=== PATIENT | female | born 1940 | race Caucasian/White ===

== ENCOUNTER → 2024-05-12 | Outpatient (CLI) | payer MEDICARE, SELFPAY ==
[2024-05-12 09:24] LABS: Collection Type, Urine Clean Catch
[2024-05-12 09:40] LABS: Basophils # (Auto) 0.1 Thou/mm3 (0.0-0.2); Basophils % (Auto) 1 % (0-2.5); Eosinophils # (Auto) 0.1 Thou/mm3 (0.0-0.5); Eosinophils % (Auto) 2 % (0-10); Hematocrit 39.5 % (36.0-46.0); Hemoglobin 12.8 g/dL (12.0-16.0); Immature Granulocytes % (Auto) 0 % (0-0); Immature Granulocytes Auto 0.02 Thou/mm3 (0.00-0.00); Lymphocytes # (Auto) 0.4 Thou/mm3 (1.0-4.8); Lymphocytes % (Auto) 8 % (10-50); Mean Corpuscular HGB Conc 32.4 g/dl (31.0-37.0); Mean Corpuscular Hemoglobin 30.8 pg (25.0-35.0); Mean Corpuscular Volume 95 fL (80-100); Monocytes # (Auto) 0.5 Thou/mm3 (0.0-0.8); Monocytes % (Auto) 8 % (0-12); Neutrophils # (Auto) 4.8 Thou/mm3 (1.8-7.7); Neutrophils % (Auto) 82 % (37-80); Nucleated Red Blood Cell % 0 /100 WBC (0); Platelet Count 288 Thou/mm3 (140-440); RDW Standard Deviation 46.1 fL (36.4-46.3); Red Blood Count 4.15 Miln/mm3 (4.00-5.20); White Blood Count 5.9 Thou/mm3 (3.6-11.0)
[2024-05-12 09:52] LABS: Bacteria,Urine 1+; Bilirubin,Urine Negative (Negative); Blood,Urine Trace (Negative); Color,Urine Yellow (Lt Yel-Yel); Glucose, Urine Negative (Negative); Hyaline Casts,Urine < 1 /hpf (0-1); Ketones,Urine Negative (Negative); Leukocyte Esterase,Urine Positive (Negative); Nitrite,Urine Negative (Negative); Protein,Urine 1+ (Neg - Trace); RBC,Urine 10 /hpf (0-3); Specific Gravity,Urine 1.026 (1.001-1.035); Squamous Epithelial Cell,Urine 8 /hpf (0-5); WBC,Urine 258 /hpf (0-5)
[2024-05-12 10:01] LABS: Parathyroid Hormone Intact 274.2 pg/ml (18.5-88.0)
[2024-05-12 10:08] LABS: Albumin, Serum 4.4 gm/dL (3.4-4.8); Anion Gap 8 (7-16); BUN/Creatinine Ratio 15 Ratio (12-20); Blood Urea Nitrogen 24 mg/dL (9-23); Calcium 10.3 mg/dL (8.3-10.6); Calcium (Corrected) 10.3 mg/dL (8.5-10.1); Carbon Dioxide 29.9 mMol/L (20.0-31.0); Chloride 102 mMol/L (98-107); Creatinine (Component) 1.6 mg/dL (0.6-1.3); Glucose 118 mg/dL (74-106); Osmolality,Calculated 284 (275-295); Phosphorous 3.1 mg/dL (2.4-5.1); Potassium 3.6 mMol/L (3.4-5.1); Sodium 140 mMol/L (136-145); Thyroid Stimulating Hormone 0.99 uIU/mL (0.55-4.78); eGFR 32 See Note
[2024-05-12 10:11] LABS: Vitamin B12 317 pg/mL (211-911); Vitamin D 25 Hydroxy Total 38.6 ng/mL (7.3-40.2)
[2024-05-12 10:18] LABS: Total Iron Binding Capacity 282 mcg/dL (250-425)
[2024-05-12 10:28] LABS: Iron 86 mcg/dL (50-170); Percent Iron Saturation 30 % (20-55); Unsaturated Iron Binding 196 (225-295)
[2024-05-12 10:43] LABS: Clarity,Urine Hazy (Clear/Hazy)
== END | disposition home or self-care (01) ==
LOC: COPL 08:26
PROVIDERS: PCP Registered Nurse; Referring Provider Internal Medicine Nephrology; Visit Provider Internal Medicine Nephrology
DX: R53.82 Chronic fatigue, unspecified (principal); I89.0 Lymphedema, not elsewhere classified; E66.9 Obesity, unspecified; I12.9 Hypertensive chronic kidney disease with stage 1 through stage 4 chronic kidney disease, or unspecified chronic kidney disease; N18.9 Chronic kidney disease, unspecified
CPT/HCPCS: 36415; 80069; 81001; 82306; 82607; 83540; 83550; 83970; 84443; 85025

== ENCOUNTER 2024-06-23 08:46 | Outpatient (RCR) | payer MEDICARE, SELFPAY ==
--- NOTE | 2024-06-23 09:00 | XR_ITS ---
Examination: Nuclear medicine parathyroid scan Exam date and time: June 23, 2024 1349 hours INDICATIONS: Elevated calcium on laboratory examination this week TECHNIQUE AND FINDINGS: Intravenous administration 24 mCi technetium 99m sestamibi, pinhole and chest images obtained before hours Normal thyroid and salivary gland activity IMPRESSION: No findings diagnostic for parathyroid adenoma
== END 2024-06-28 23:59 | disposition home or self-care (01) ==
LOC: SNUC 08:46
PROVIDERS: PCP Family Medicine; Referring Provider Internal Medicine Nephrology; Visit Provider Internal Medicine Nephrology
DX: E21.0 Primary hyperparathyroidism (principal)
CPT/HCPCS: 78070; A9500

== ENCOUNTER → 2024-07-27 | Outpatient (CLI) | payer MEDICARE, SELFPAY ==
[2024-07-27 11:36] LABS: Basophils % (Auto) 1 % (0-2.5); Eosinophils # (Auto) 0.1 Thou/mm3 (0.0-0.5); Eosinophils % (Auto) 1 % (0-10); Hematocrit 41.3 % (36.0-46.0); Hemoglobin 13.1 g/dL (12.0-16.0); Immature Granulocytes % (Auto) 0 % (0-0); Immature Granulocytes Auto 0.01 Thou/mm3 (0.00-0.00); Lymphocytes # (Auto) 0.7 Thou/mm3 (1.0-4.8); Lymphocytes % (Auto) 11 % (10-50); Mean Corpuscular HGB Conc 31.7 g/dl (31.0-37.0); Mean Corpuscular Hemoglobin 30.4 pg (25.0-35.0); Mean Corpuscular Volume 96 fL (80-100); Monocytes # (Auto) 0.6 Thou/mm3 (0.0-0.8); Monocytes % (Auto) 10 % (0-12); Neutrophils # (Auto) 4.8 Thou/mm3 (1.8-7.7); Neutrophils % (Auto) 78 % (37-80); Nucleated Red Blood Cell % 0 /100 WBC (0); Platelet Count 285 Thou/mm3 (140-440); Red Blood Count 4.31 Miln/mm3 (4.00-5.20); White Blood Count 6.2 Thou/mm3 (3.6-11.0)
[2024-07-27 11:46] LABS: Collection Type, Urine Catheter
[2024-07-27 12:02] LABS: Albumin, Serum 4.3 gm/dL (3.4-4.8); Anion Gap 5 (7-16); BUN/Creatinine Ratio 12 Ratio (12-20); Blood Urea Nitrogen 20 mg/dL (9-23); Calcium 10.1 mg/dL (8.3-10.6); Calcium (Corrected) 10.1 mg/dL (8.5-10.1); Carbon Dioxide 32.9 mMol/L (20.0-31.0); Chloride 102 mMol/L (98-107); Creatinine (Component) 1.7 mg/dL (0.6-1.3); Glucose 99 mg/dL (74-106); Osmolality,Calculated 282 (275-295); Phosphorous 3.1 mg/dL (2.4-5.1); Potassium 3.4 mMol/L (3.4-5.1); Sodium 140 mMol/L (136-145); eGFR 30 See Note
[2024-07-27 12:15] LABS: Bacteria,Urine 2+; Bilirubin,Urine Negative (Negative); Blood,Urine Negative (Negative); Clarity,Urine Turbid (Clear/Hazy); Color,Urine Lt-Yellow (Lt Yel-Yel); Glucose, Urine Negative (Negative); Ketones,Urine Negative (Negative); Leukocyte Esterase,Urine Negative (Negative); Nitrite,Urine Negative (Negative); Protein,Urine Negative (Neg - Trace); RBC,Urine 2 /hpf (0-3); Specific Gravity,Urine 1.018 (1.001-1.035); Squamous Epithelial Cell,Urine 16 /hpf (0-5); Urobilinogen,Urine Negative mg/dL (0.0-1.0); WBC,Urine 7 /hpf (0-5)
== END | disposition home or self-care (01) ==
LOC: COPL 10:44
PROVIDERS: PCP Registered Nurse; Referring Provider Internal Medicine Nephrology; Visit Provider Internal Medicine Nephrology
DX: N18.30 Chronic kidney disease, stage 3 unspecified (principal)
CPT/HCPCS: 36415; 80069; 81001; 85025

== ENCOUNTER 2024-08-19 19:31 | Emergency (ER) | payer MEDICARE, SELFPAY ==
[2024-08-19 19:45] VITALS: PULSE 80
[2024-08-19 19:51] VITALS: BP 143/100; PULSE 69; RESP 16; TEMP 36.8; O2SAT 92
--- NOTE | 2024-08-19 20:03 | EDRME_ITS ---
Rapid Medical Screening Exam [facility] Arrival date/time: 08/19/24 19:31 CC: Fall HPI patient was found on the floor next to her bed after attempting to get up to go to the bathroom. Unknown downtime as the fall was not witnessed. Patient was brought home today from an outpatient clinic procedure that involved removing a nodule from her uterus. reports to EMS that the patient has been groggy on pain medication. And was put to bed. When returned after some time found the patient on the floor. Patient is awake responding all questions admits that she is on Eliquis for stroke. Chief Complaint: Fall Time Seen by Provider: 08/19/24 20:03 Vital signs: Vital Signs Temperature 98.2 F 08/19/24 19:51 Pulse Rate 69 08/19/24 19:51 Respiratory Rate 16 08/19/24 19:51 Blood Pressure 143/100 H 08/19/24 19:51 Pulse Oximetry (%) 92 L 08/19/24 19:51 Oxygen Delivery Method Room Air 08/19/24 19:51
--- NOTE | 2024-08-19 20:05 | XR_ITS ---
Examination: CT brain head without contrast. 2-D sagittal coronal reconstructions Date and time of exam:August 20, 2024, 0039 hours INDICATIONS: Ground-level fall today with injury to the head, head pain CTDI: vol (mGy):8.09 DLP: (mGycm):1316 Technique: Multiple CT axial sections of the brain have been obtained, 5 mm slice thickness. Contrast has not been administered. 2-D sagittal, coronal reconstructions have been obtained Low dose protocols were performed. One or more of the following dose reduction techniques were used; automated exposure control, adjustment of the mA and/or KV according to patient size, use of iterative reconstruction technique. Findings: No significant ventricular enlargement. Intra-axial or extra-axial hemorrhage density is not seen. No mass effect or midline shift Basal cisterns are not remarkable. Fourth ventricle is midline. Cranial vault intact. Impression: Negative for acute hemorrhage, mass effect or midline shift
--- NOTE | 2024-08-19 20:05 | XR_ITS ---
Examination: CT cervical spine without contrast 2-D sagittal reconstructions 2-D coronal reconstructions 3-D reconstructions. Exam date and time:August 20, 2024, 0039 hours INDICATIONS: Ground-level fall today with injury to the neck, neck pain CTDI:vol (mGy) 8.09 DLP: (mGycm) 1316 Technique: Multiple 2 mm axial sections of the cervical spine have been obtained. The coronal and sagittal reconstructions have been obtained. 3-D reconstructions have been obtained. Low dose protocols were performed. One or more of the following dose reduction techniques were used; automated exposure control, adjustment of the mA and/or KV according to patient size, use of iterative reconstruction technique. Findings: Axial sections demonstrate intact base of the skull. C1 exhibit satisfactory relationship to the odontoid. No acute cervical vertebral body fracture seen. Alignment posterior spinous processes satisfactory. Impression: No acute cervical fracture. 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
--- NOTE | 2024-08-19 20:05 | EKG_ITS ---
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
[2024-08-19 20:22] LABS: Basophils % (Auto) 1 % (0-2.5); Eosinophils # (Auto) 0.1 Thou/mm3 (0.0-0.5); Eosinophils % (Auto) 1 % (0-10); Hematocrit 38.8 % (36.0-46.0); Hemoglobin 12.8 g/dL (12.0-16.0); Immature Granulocytes % (Auto) 1 % (0-0); Immature Granulocytes Auto 0.03 Thou/mm3 (0.00-0.00); Lymphocytes # (Auto) 0.9 Thou/mm3 (1.0-4.8); Lymphocytes % (Auto) 14 % (10-50); Mean Corpuscular Hemoglobin 30.5 pg (25.0-35.0); Mean Corpuscular Volume 92 fL (80-100); Monocytes # (Auto) 0.5 Thou/mm3 (0.0-0.8); Monocytes % (Auto) 8 % (0-12); Neutrophils # (Auto) 4.5 Thou/mm3 (1.8-7.7); Neutrophils % (Auto) 75 % (37-80); Nucleated Red Blood Cell % 0 /100 WBC (0); Platelet Count 256 Thou/mm3 (140-440); RDW Standard Deviation 46.1 fL (36.4-46.3); White Blood Count 5.9 Thou/mm3 (3.6-11.0)
--- NOTE | 2024-08-19 20:28 | PD.EDFALL ---
ED Fall Injury RME/HPI General Chief Complaint: Fall Stated Complaint: FALL Time Seen by Provider: 08/19/24 20:03 Arrival date/time: 08/19/24 19:31 RME / HPI RME / HPI Narrative: 08/19/24 19:31 CC: Fall HPI patient was found on the floor next to her bed after attempting to get up to go to the bathroom. Unknown downtime as the fall was not witnessed. Patient was brought home today from an outpatient clinic procedure that involved removing a nodule from her uterus. reports to EMS that the patient has been groggy on pain medication. And was put to bed. When returned after some time found the patient on the floor. Patient is awake responding all questions admits that she is on Eliquis for stroke. Dr. Jones?s Main ED Evaluation: 83yo female DL from home presents to the ED for an unwitnessed fall. Patient states she fell on her bed, hitting her right side. She endorses having right elbow pain and right hip pain. She denies any headache, neck pain, chest pain, shortness of breath, abdominal pain or any other associated symptoms. Her called 911 to have her brought in for evaluation. Patient states she had an outpatient procedure done today to remove growths from my bladder . She states she took 1 [place] at home today. Related Data Home Medications ?Medication ?Instructions ?Recorded ?Confirmed bumetanide 2 mg tablet 2 mg PO BID #0 tabs 09/08/13 09/19/19 tofacitinib 5 mg tablet (Xeljanz) 1 tab PO BID ##60 09/08/13 09/19/19 folic acid 1 mg tablet 1 mg PO BID SUPPLEMENT #0 tabs 09/12/13 09/19/19 ergocalciferol (vitamin D2) 1,250 50,000 unit PO QWEEK 10/01/17 09/19/19 mcg (50,000 unit) capsule (Vitamin D2) nifedipine 30 mg tablet,extended 30 mg PO BID 10/01/17 09/19/19 release 24 hr omega 3 350 mg-dha 235 mg-epa 90 1 tab PO BID 10/01/17 09/19/19 mg-fish oil 597 mg capsule,delay rel ([place]-3) pantoprazole 40 mg tablet,delayed 40 mg PO QAM 10/01/17 09/19/19 release potassium chloride 20 mEq 20 meq PO BID 10/01/17 09/19/19 tablet,extended release simvastatin 20 mg tablet 20 mg PO QPM 10/01/17 09/19/19 ascorbic acid (vitamin C) 500 mg 500 mg PO BID 09/19/19 09/19/19 tablet (Vitamin C) aspirin 81 mg chewable tablet 81 mg PO QDAY 09/19/19 09/19/19 Held on 10/31/20. Instructions: Resume on 11/02/20. HOLD ASPRIN FOR TWO DAYS MAY RESUME ON Thursday11/02/20 calcitriol 0.5 mcg capsule 0.5 mcg PO QDAY 09/19/19 09/19/19 montelukast 10 mg tablet 10 mg PO QPM 09/19/19 09/19/19 (Singulair) vitamin B complex 1 tab PO QDAY 09/19/19 09/19/19 Previous Rx's ?Medication ?Instructions ?Recorded ciprofloxacin HCl 500 mg tablet 500 mg PO BID #14 tabs 05/05/23 (Cipro) Allergies Allergy/AdvReac Type Severity Reaction Status Date / Time influenza virus vaccine ts Allergy Severe Diarrhea Verified 07/15/23 13:17 [id number] (36 mos,up) (From Fluarix) adalimumab (From Humira) Allergy Intermediate Diarrhea Verified 07/15/23 13:17 bacitracin Allergy Verified 07/15/23 13:17 Review of Systems Review of Systems Systems Reviewed: All systems reviewed, normal except as documented Past Medical History Past Medical History NEUROLOGIC: Positive Neurological Disorders, Cerebrovascular Accident, Transient Ischemic Attacks (TIA) and Head Trauma; Negative Dementia, Alzheimer's Disease, Parkinson's Disease, Brain Tumor, Meningitis, Seizures, Epilepsy, Multiple Sclerosis, Cerebral Palsy, Amyotrophic Lateral Sclerosis (ALS/Vandana Gehrig's), Guillain-S [place] Syndrome, Spina Bifida, Paralysis, Peripheral Neuropathy, Rubalcava's Palsy, Subdural Hematoma, Migraine, Spinal Cord Injury or Traumatic Brain Injury CARDIAC: Positive Cardiac Disorders, Cardiac Arrhythmia, Atrial Fibrillation, Atherosclerotic Heart Disease, Peripheral Vascular Disease, Hypercholesterolemia, Edema, Hypertension and Varicose Veins; Negative Myocardial Infarction, Angina, Heart Murmur, Coronary Artery Disease, Aneurysm, Congestive Heart Failure, Congenital Heart Disease, Valvular Heart Disease, Rheumatic Fever, Cardiomyopathy, Pericarditis, Cellulitis, Deep Vein Thrombosis or Hypotension RESPIRATORY: Negative Chronic Obstructive Pulmonary Disease (COPD), Asthma, Bronchitis, Emphysema, Pneumonia, Pulmonary Fibrosis, Cystic Fibrosis, Tuberculosis, Pulmonary Embolism, Pulmonary Edema or Sleep Apnea GASTROINTESTINAL: Positive Gastrointestinal Disorders, Gall Bladder Disease, Hemorrhoids, Gastroesophageal Reflux Disease and Obesity; Negative Hepatitis, Cirrhosis, Pancreatitis, Celiac Disease, Gastrointestinal Bleed, Esophageal Varices, Paul's Esophagus, Colitis, Ulcerative Colitis, Diverticulitis, Diverticulosis, Ulcer, Colorectal Cancer, Irritable Bowel, Crohn's Disease, Obstructive Bowel or Hiatal Hernia GENITOURINARY: Positive Genitourinary Disorders and Renal Disease; Negative Kidney Stones, Polycystic Kidney Disease, Neurogenic Bladder, Inguinal Hernia, Dialysis or Prostate Cancer REPRODUCTIVE: Positive Previous Pregnancies; Negative Breast Cancer, Endometriosis, Genital Herpes, Gonorrhea, Pelvic Inflammatory Disease, Syphilis, Testicular Cancer or Uterine Prolapse MUSCULOSKELETAL: Positive Musculoskeletal Disorders, Arthritis, Rheumatoid Arthritis and Fractures; Negative Muscular Dystrophy, Myasthenia Gravis, Marfan's Syndrome, Bone Cancer, Osteoporosis, Degenerative Disk Disease, Gout, Scoliosis, Carpal Tunnel Syndrome, Fibromyalgia, Degenerative Joint Disease, Osteomyelitis or Poliovirus ENT: Positive Cataracts, Glaucoma and Head Trauma; Negative Blind, Retinal Detachment, Macular Degeneration, Ear Infection, Deafness or Eye Prosthesis ENDOCRINE: Negative Endocrine Disorders, Diabetes Mellitus Type 1, Diabetes Mellitus Type 2, Hypoglycemia, [place]'s Syndrome, Gaurav's Disease, Hyperthyroidism, Hypothyroidism, Parathyroid Disease, Pituitary Disease, Systemic Lupus Erythematosus, Syndrome of Inappropriate Antidiuretic Hormone (SIADH), Adrenal Disease or Graves' Disease HEMATOLOGIC: Positive Blood Disorders, Anemia and Clotting Problems; Negative Leukemia, Hemophilia, Thalassemia or Sickle Cell Disease PSYCHO/SOCIAL: Positive Psychiatric Problems, Depression and Anxiety; Negative Schizophrenia, Recreational Drug Use, Bipolar Disorder, Behavior Problems, Self-Mutilation, Attention Deficit Disorder, Attention Deficit Hyperactivity Disorder, Depression, Post Traumatic Stress Disorder or Eating Disorder OTHER HISTORY: Positive Hospitalization, Shingles, Falls, Chicken Pox, Measles, Mumps and Cancer; Negative Autoimmune Disease, Down Syndrome, Autism, Developmental Delay, Blood Transfusions, Blood Transfusion Reaction, Anesthesia Reactions, Organ Transplant, Chemotherapy, Radiation Therapy, Hyperbaric Therapy, MRSA, VRSA, Vancomycin-Resistant Enterococci, Rubella (Spanish Measles), Pertussis, Clostridium Difficile, Breast Cancer, Cervical Cancer, Colorectal Cancer, Lung Cancer, Ovarian Cancer, Prostate Cancer or Testicular Cancer Family History FAMILY HISTORY: Positive Family Psychiatric Problems, Family Cardiac Disorders, Family Cancer and Family Surgery; Negative Family Respiratory Disorders, Family Gastrointestinal Problems or Family Anesthesia Reaction Surgical History SURGICAL: Positive Eye Surgery, Nose Surgery, Tonsillectomy, Abdominal Surgery, Joint Replacement and Hysterectomy; Negative Cardiac Surgery, Open Heart Surgery, Coronary Artery Bypass Graft, Valve Replacement, Vascular Surgery, Coronary Stent, Cardiac Catheterization, Pacemaker, Angiogram, Auto Implanted Cardiovert Defib, Carotid Endarterectomy, Endocrine Surgery, Thyroidectomy, Ear Surgery, Tympanostomy Tube, Oral Surgery, Adenoidectomy, Cochlear Implant, Corneal Transplant, Throat Surgery, Tracheostomy, Gastric Bypass Surgery, Gastrostomy, Bowel Surgery, Nephrectomy, Amputation, Open Reduction Internal Fixation, Arthroscopy, Neurologic Surgery, Brain Shunt, Mastectomy, Lumpectomy, Tubal Ligation, Section or Organ Transplant Social History SMOKING STATUS: Never smoker SECOND HAND EXPOSURE: No ED Exam Narrative Physical exam: GENERAL APPEARANCE: somnolent, slurred speech, well-developed, well-nourished, no acute distress VITALS: All vitals were reviewed and the pulse ox is 95% on room air, which is normal according to my interpretation. HEENT: Normocephalic, atraumatic; pupils equal, round, reactive to light; EOMI; mucous membranes pink, moist; oropharynx clear NECK: Supple LUNGS: CTABL; no wheezes, no rales, no rhonchi HEART: Regular rate, regular rhythm; normal S1, S2; no murmurs ABDOMEN: non distended; normal BS; soft, no tenderness, no guarding, no rebound; no masses, no organomegaly, no hernia BACK: no CVA tenderness EXTREMITIES: RLE is shortened and externally rotated; tenderness on palpation of the right lateral hip; no edema NEUROLOGIC: somnolent with slurred speech; cranial nerves II-XII grossly intact; no focal sensory or motor deficits PSYCHIATRIC: appropriate mood and affect SKIN: warm, dry, normal color; no rashes Course Quality Measures none Orders Category Date Time Status Supervisory Historian Q4H START 00 Care 08/19/24 20:42 Active Continuous Pulse Oximetry NOW Care 08/19/24 20:42 Completed EKG (ED ONLY) *Do not use* NOW Care 08/19/24 20:05 Completed In and Out Catheter X1 Care 08/19/24 20:41 Completed Miscellaneous Nursing Order NOW Care 08/19/24 20:[address] cervical spine wo con Stat Exams 08/19/24 20:[address] head/brain wo con Stat Exams 08/19/24 20:[address] hip RT wo con Stat Exams 08/19/24 21:51 Taken EKG (ED Only) Stat Exams 08/19/24 20:05 Draft XR chest 1V portable Stat Exams 08/19/24 20:42 Completed XR elbow comp RT min 3V Stat Exams 08/19/24 20:41 Completed XR hip RT w pelvis 2-3V Stat Exams 08/19/24 20:41 Completed B-Type Natriuretic Peptide Stat Lab 08/19/24 20:16 Completed CBC Stat Lab 08/19/24 20:16 Completed Comprehensive Metabolic Panel Stat Lab 08/19/24 20:16 Completed Creatine Kinase Stat Lab 08/19/24 20:16 Completed Drug Screen,Urine Stat Lab 08/19/24 21:10 Completed LDH (Lactate Dehydrogenase) Stat Lab 08/19/24 20:16 Completed Magnesium Stat Lab 08/19/24 20:16 Completed Partial Thromboplastin Time Stat Lab 08/19/24 20:16 Completed Prothrombin Time with INR Stat Lab 08/19/24 20:16 Completed Troponin I Stat Lab 08/19/24 20:16 Completed Urinalysis Stat Lab 08/19/24 21:10 Completed Vital Signs Vital signs: Vital Signs Temperature 98.2 F 08/19/24 19:51 Pulse Rate 69 08/19/24 19:51 Respiratory Rate 16 08/19/24 19:51 Blood Pressure 143/100 H 08/19/24 19:51 Pulse Oximetry (%) 92 L 08/19/24 19:51 Oxygen Delivery Method Room Air 08/19/24 19:51 Fall MDM Narrative MDM Narrative:: Scribe Attestation: 08/19/24 - Estephania Currie am scribing for and in the presence of Dr. Jones. CT scans were completed at 0056. Pending to be read. No fracture seen on CT hip. Patient has developed extreme hypotension. She is somnolent for unknown reasons. May need admission. Patient data External records reviewed:: [facility] previous records (Per chart review, patient was seen here on 07/15/23 for a bladder mass.) Clinical information provided by:: patient Social determinants that could affect healthcare access:: none Patient has the following chronic illnesses:: Afib on Eliquis, hypertension, hyperlipidemia, GERD, rheumatoid arthritis How is presenting disease/condition affected by chronic disease/condition?: uneffected by Evaluation data The following diagnostics were reviewed and interpreted by me:: lab results, radiology exam(s) and EKG tracing(s) Lab and/or radiology exams considered but not ordered:: none Interpretation Summary: CBC is normal, PT and INR are normal, Creatinine is 1.5, Troponin is normal, BNP is 137, UDS is positive for fentanyl, opiates, and benzodiazepines, according to my interpretation. EKG done at 2030, aFib, rate of 77, normal axis, no ectopy, no acute ischemia, according to my interpretation. [facility] Preliminary Report Draft Patient: WILDER FOX [employer]. Record#: [id number] Birthdate: 1940 Age/Sex: 83 / F Location: [facility] Attending Dr: Ordering Physician: Date of Service: Procedure(s): Accession Number(s): cc: ~ CT scan of the head without intravenous contrast (axial sections with sagittal and coronal reformats) August 20, 2024 at 0039 hours Clinical History: GLF, on thinners. Comparison: None. Findings: There is no evidence of intracranial hemorrhage, mass effect or midline shift. There are periventricular white matter hypodensities, compatible with chronic small vessel ischemia. There is severe volume loss. The calvarium is intact. The mastoid air cells and the visualized paranasal sinuses are clear. Impression: No evidence of intracranial hemorrhage, midline shift or calvarial fracture. Periventricular chronic small vessel ischemia and volume loss. Report Electronically Signed By: Rocky Vail 08/20/2024 5:09:02 AM. -------- [facility] Report Signed Patient: WILDER FOX [employer]. Record#: [id number] Birthdate: 1940 Age/Sex: 83 / F Location: [facility] Attending Dr: Ordering Physician: Amrit Jones MD Date of Service: 08/19/24 Procedure(s): XR chest 1V portable Accession Number(s): [id number] cc: Mark Sanchez MD; Amrit Jones MD~ Examination: AP chest single view TECHNIQUE: AP portable semiupright chest single view Exam date and time: August 19, 2024 at 2049 hours Comparison May 16, 2022 INDICATIONS: Ground-level fall today injury to the chest FINDINGS: Mild to moderate enlargement left ventricle Mild to moderate pleural disease left base Ectatic thoracic aorta. No pneumothorax Prominent osteopenia. Clavicles and ribs appear intact IMPRESSION: No pneumothorax Possible small to moderate left pleural effusion Dictated By: Mark Sanchez MD Signed By: <Electronically signed by Mark Sanchez MD in OV> 08/19/242103 [facility] Report Signed Patient: WILDER FOX [employer]. Record#: [id number] Birthdate: 1940 Age/Sex: 83 / F Location: [facility] Attending Dr: Ordering Physician: Amrit Jones MD Date of Service: 08/19/24 Procedure(s): XR hip RT w pelvis 2-3V Accession Number(s): [id number] cc: Mark Sanchez MD; Amrit Jones MD~ Examination:Right hip AP, lateral, AP pelvis 3 views Technique: Hip AP lateral, AP pelvis, 3 views, right Exam date and time:August 19, 2024, 2053 hours INDICATIONS: Patient fell today, injury to the right hip, right hip pain. FINDINGS: Radiolucent line overlies the intertrochanteric region right hip but this may be a fat plane in the soft tissue Bones of the pelvis left hip intact IMPRESSION: Consider CT scan right hip without contrast follow-up to best exclude intertrochanteric fracture right hip, as clinically warranted Dictated By: Mark Sanchez MD Signed By: <Electronically signed by Mark Sanchez MD in OV> 08/19/242107 [facility] Report Signed Patient: WILDER FOX [employer]. Record#: [id number] Birthdate: 1940 Age/Sex: 83 / F Location: [facility] Attending Dr: Ordering Physician: Amrit Jones MD Date of Service: 08/19/24 Procedure(s): XR elbow comp RT min 3V Accession Number(s): [id number] cc: Mark Sanchez MD; Amrit Jones MD~ Examination: Right elbow 3 views Technique: Elbow AP, oblique, lateral 3 views Exam date and time: August 19, 2024 at 2050 hours INDICATIONS: Patient fell today with injury to the elbow, elbow pain. FINDINGS: No acute fracture No dislocation No foreign body IMPRESSION: No acute fracture. Dictated By: Mark Sanchez MD Signed By: <Electronically signed by Mark Sanchez MD in OV> 08/19/242104 [facility] Preliminary Report Draft Patient: WILDER FOX [employer]. Record#: [id number] Birthdate: 1940 Age/Sex: 83 / F Location: [facility] Attending Dr: Ordering Physician: Date of Service: Procedure(s): Accession Number(s): cc: ~ CT scan of the cervical spine without intravenous contrast (axial sections with sagittal and coronal reformats) August 20, 2024 at 0039 hours Clinical History: Ground-level fall. Comparison: None. Findings: There is no fracture or subluxation. The prevertebral soft tissues are unremarkable. Degenerative changes of the imaged portions of the spine. Chronic multilevel disc disease. Vascular calcifications. Right thyroid nodule measuring 2.9 cm. Right apical lung scarring. Impression: No evidence of fracture or subluxation. Right thyroid nodule, consider correlation with ultrasound and thyroid function tests. Report Electronically Signed By: Rocky Vail 08/20/2024 5:11:44 AM [facility] Preliminary Report Draft Patient: WILDER FOX [employer]. Record#: [id number] Birthdate: 1940 Age/Sex: 83 / F Location: [facility] Attending Dr: Ordering Physician: Date of Service: Procedure(s): Accession Number(s): cc: ~ CT scan of the right hip without intravenous contrast (axial sections with sagittal and coronal reformats) August 20, 2024 0101 hours Clinical History: Right hip pain following ground-level fall. Comparison: None. Findings: The bone density and alignment are normal. The acetabulum, femoral head and neck are within normal limits for age. The hip joint spaces are maintained. The periarticular soft tissues are within normal limits. The sacroiliac joints are unremarkable. Impression: No acute fracture or dislocation. Report Electronically Signed By: Rocky Vail 08/20/2024 5:18:50 AM [EST] Medications / Prescriptions Medications or Prescriptions considered but not ordered:: none Medication administrations:: see above Consultations Consultation(s) initiated? (list below): No Diagnosis Fall Differential Diagnosis: other (hip fx, pelvic fx, elbow fx, syncope, overmedication due to procedure, near syncope) Most likely diagnosis given after review of the tests above:: see clinical impression below Admission Indicated Admission indicated?: not indicated Admission Request Was there a request for admission?: No Disposition Plan Disposition Plan: other (specify) (Signed out to Dr. Irwin at 0600 pending re-evaluation.) Discharge Plan Prescriptions/Referrals Prescriptions/Med Rec: No Action Xeljanz 5 MG tablet 1 tab PO BID Qty: 60 bumetanide 2 MG tablet 2 mg PO BID Qty: 0 folic acid 1 MG tablet 1 mg PO BID Qty: 0 pantoprazole 40 mg Tablet,Delayed Release (Dr/Ec) 40 mg PO QAM nifedipine 30 mg Tablet Extended Release 24 Hr 30 mg PO BID simvastatin 20 mg Tablet 20 mg PO QPM ergocalciferol (vitamin D2) [Vitamin D2] 50,000 unit Capsule 50,000 unit PO QWEEK potassium chloride 20 mEq Tablet Extended Release 20 meq PO BID [place]-3 350 mg-235 mg- 90 mg-597 mg Capsule,Delayed Release(Dr/Ec) 1 tab PO BID ascorbic acid (vitamin C) [Vitamin C] 500 mg Tablet 500 mg PO BID calcitriol 0.5 mcg Capsule 0.5 mcg PO QDAY aspirin 81 mg Tablet,Chewable 81 mg PO QDAY vitamin B complex Tablet 1 tab PO QDAY montelukast [Singulair] 10 mg Tablet 10 mg PO QPM ciprofloxacin HCl [Cipro] 500 mg tablet 500 mg PO BID Qty: 14 0RF Referrals: Aleksandr Noble MD [Primary Care Provider] - In 1 week Problem List Clinical Impression: Hypertensive emergency Patient/Caregiver Discharge Instructions Print Language: Turkmen
[2024-08-19 20:36] LABS: INR 1.1 (0.9-1.3); Partial Thromboplastin Time 25.4 Seconds (22.0-36.0); Prothrombin Time 11.5 Seconds (9.0-12.2)
[2024-08-19 20:39] LABS: B-Type Natriuretic Peptide 137 pg/mL (0-100)
--- NOTE | 2024-08-19 20:41 | XR_ITS ---
Examination: Right elbow 3 views Technique: Elbow AP, oblique, lateral 3 views Exam date and time: August 19, 2024 at 2050 hours INDICATIONS: Patient fell today with injury to the elbow, elbow pain. FINDINGS: No acute fracture No dislocation No foreign body IMPRESSION: No acute fracture.
--- NOTE | 2024-08-19 20:41 | XR_ITS ---
Examination:Right hip AP, lateral, AP pelvis 3 views Technique: Hip AP lateral, AP pelvis, 3 views, right Exam date and time:August 19, 2024, 2053 hours INDICATIONS: Patient fell today, injury to the right hip, right hip pain. FINDINGS: Radiolucent line overlies the intertrochanteric region right hip but this may be a fat plane in the soft tissue Bones of the pelvis left hip intact IMPRESSION: Consider CT scan right hip without contrast follow-up to best exclude intertrochanteric fracture right hip, as clinically warranted
--- NOTE | 2024-08-19 20:42 | XR_ITS ---
Examination: AP chest single view TECHNIQUE: AP portable semiupright chest single view Exam date and time: August 19, 2024 at 2049 hours Comparison May 16, 2022 INDICATIONS: Ground-level fall today injury to the chest FINDINGS: Mild to moderate enlargement left ventricle Mild to moderate pleural disease left base Ectatic thoracic aorta. No pneumothorax Prominent osteopenia. Clavicles and ribs appear intact IMPRESSION: No pneumothorax Possible small to moderate left pleural effusion
[2024-08-19 20:53] LABS: Alanine Aminotransferase 15 U/L (10-49); Albumin/Globulin Ratio 1.4 (1.2-2.2); Alkaline Phosphatase 122 U/L (46-116); Anion Gap 9 (7-16); Aspartate Amino Transferase 23 U/L (0-34); BUN/Creatinine Ratio 13 Ratio (12-20); Bilirubin,Total 0.8 mg/dL (0.3-1.2); Blood Urea Nitrogen 20 mg/dL (9-23); Calcium 10.2 mg/dL (8.3-10.6); Calcium (Corrected) 10.2 mg/dL (8.5-10.1); Carbon Dioxide 31.3 mMol/L (20.0-31.0); Chloride 102 mMol/L (98-107); Creatine Kinase 43 U/L (34-171); Creatinine (Component) 1.5 mg/dL (0.6-1.3); Globulin 2.8 gm/dL (2.3-3.5); Glucose 107 mg/dL (74-106); Magnesium 2.2 mg/dL (1.6-2.6); Osmolality,Calculated 285 (275-295); Potassium 3.5 mMol/L (3.4-5.1); Sodium 142 mMol/L (136-145); Total Protein 6.8 gm/dL (5.7-8.2); eGFR 34 See Note
[2024-08-19 21:00] VITALS: PULSE 85
[2024-08-19 21:30] LABS: Collection Type, Urine Clean Catch
[2024-08-19 21:46] LABS: Bilirubin,Urine Negative (Negative); Blood,Urine 3+ (Negative); Clarity,Urine Clear (Clear/Hazy); Color,Urine Lt-Yellow (Lt Yel-Yel); Glucose, Urine Negative (Negative); Ketones,Urine Negative (Negative); Leukocyte Esterase,Urine Positive (Negative); Nitrite,Urine Negative (Negative); Protein,Urine 1+ (Neg - Trace); RBC,Urine 87 /hpf (0-3); Specific Gravity,Urine 1.009 (1.001-1.035); Squamous Epithelial Cell,Urine 1 /hpf (0-5); Urobilinogen,Urine Negative mg/dL (0.0-1.0); WBC,Urine 96 /hpf (0-5)
--- NOTE | 2024-08-19 21:51 | XR_ITS ---
Examination: CT pelvis without intravenous contrast. CT right hip without intravenous contrast 2-D sagittal and coronal reconstructions. Date and time of exam:August 20, 2024 0101 hours INDICATIONS: Ground-level fall today with injury to the right hip, right hip pain CTDI: vol (mGy) :16.5 DLP: (mGycm) : 572 Technique: Multiple 3 mm axial sections of the pelvis right hip have been obtained with the 64 slice high resolution scanner. 2-D sagittal and coronal reconstructions. Low dose protocols were performed. One or more of the following dose reduction techniques were used; automated exposure control, adjustment of the mA and/or KV according to patient size, use of iterative reconstruction technique. Findings: No pelvic hematoma Pericystic inflammatory change No right or left hip fracture, no hip dislocation Bones of the pelvis including anterior rami intact IMPRESSION: No acute hip or pelvic fracture
[2024-08-19 22:34] VITALS: BP 182/99; PULSE 66; RESP 14; O2SAT 92
[2024-08-19 22:34] LABS: LDH (Lactate Dehydrogenase) 203 U/L (120-246); Troponin I < 0.020 ng/mL (0.0-0.045)
[2024-08-19 22:44] LABS: Amphetamine/Methamp Scrn,U Negative (Negative); Barbiturate Screen,Urine Negative (Negative); Benzodiazepines Screen,Urine Positive (Negative); Benzoylecgonine Screen, Ur Negative (Negative); Fentanyl Screen,Urine Positive (Negative); Opiate Screen,Urine Positive (Negative); THC Screen,Urine Negative (Negative)
[2024-08-20] VITALS (10 sets, daily range): BP systolic 127–184; BP diastolic 69–112; PULSE 16–81; RESP 16–18; TEMP 36.2–36.9; O2SAT 95–99; BMI 33.7; BMI 11.0
--- NOTE | 2024-08-20 05:09 | PRELIM_ITS ---
CT scan of the head without intravenous contrast (axial sections with sagittal and coronal reformats) August 20, 2024 at 0039 hours Clinical History: GLF, on thinners. Comparison: None. Findings: There is no evidence of intracranial hemorrhage, mass effect or midline shift. There are periventricular white matter hypodensities, compatible with chronic small vessel ischemia. There is severe volume loss. The calvarium is intact. The mastoid air cells and the visualized paranasal sinuses are clear. Impression: No evidence of intracranial hemorrhage, midline shift or calvarial fracture. Periventricular chronic small vessel ischemia and volume loss. Report Electronically Signed By: Rocky Vail 08/20/2024 5:09:02 AM [EST]
--- NOTE | 2024-08-20 05:12 | PRELIM_ITS ---
CT scan of the cervical spine without intravenous contrast (axial sections with sagittal and coronal reformats) August 20, 2024 at 0039 hours Clinical History: Ground-level fall. Comparison: None. Findings: There is no fracture or subluxation. The prevertebral soft tissues are unremarkable. Degenerative changes of the imaged portions of the spine. Chronic multilevel disc disease. Vascular calcifications. Right thyroid nodule measuring 2.9 cm. Right apical lung scarring. Impression: No evidence of fracture or subluxation. Right thyroid nodule, consider correlation with ultrasound and thyroid function tests. Report Electronically Signed By: Rocky Vail 08/20/2024 5:11:44 AM [EST]
--- NOTE | 2024-08-20 05:19 | PRELIM_ITS ---
CT scan of the right hip without intravenous contrast (axial sections with sagittal and coronal reformats) August 20, 2024 0101 hours Clinical History: Right hip pain following ground-level fall. Comparison: None. Findings: The bone density and alignment are normal. The acetabulum, femoral head and neck are within normal limits for age. The hip joint spaces are maintained. The periarticular soft tissues are within normal limits. The sacroiliac joints are unremarkable. Impression: No acute fracture or dislocation. Report Electronically Signed By: Rocky Vail 08/20/2024 5:18:50 AM [EST]
--- NOTE | 2024-08-20 06:07 | EDNOTE_ITS ---
Emergency Room Addendum Addendum Narrative: 0600: Care assumed from Dr. Jones, the previous shift emergency physician. Past medical, surgical, social and family history reviewed. Vitals and home medications reviewed. I will assume the care of the patient at this time. Please refer to the emergency department record for history and examination from initial visit.? 0700: Physical exam by me shows patient is awake now, she says she is ?very sensitive to medicines and feels that they might have given her too much for anesthesia yesterday. She now knows today Thursday and she does recall that Thursday was her procedure. She states she occasionally uses a walker to ambulate. 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 She otherwise complains of no pain except when she moves her neck. She?s notices a little bit of stiffness, but no pain at rest. 0730: We are waiting for director social welfare consult and patient will also need PT. 1630: Established PT at home and plan for outpatient care. 1700: Patient remains clinically stable throughout the emergency department visit. Re-assessment at the time of disposition demonstrates that the patient is in no acute distress. We reviewed all the results, analysis, and treatment plans. Patient is amenable to discharge. Strict return precautions were outlined. Patient was discharged in stable condition. Diagnosis: - Fall from ground level
[2024-08-20] MEDS: hydrALAZINE INJ 20 MG/ML VIAL 10 MG IV (06:19)
[2024-08-20] MEDS: cefTRIAXone/D5w 1gm IV premix 1 GM/50 ML BAG IV (06:21)
--- NOTE | 2024-08-20 07:39 | PC.NURSE ---
Report received from pm nurse, patient to er with c/o fall last pm, per kaleb Curtis states patient had a procedure yesterday and was given medication to sedate her, when they came home, she was in bed and approx. 1200am he found patient on the floor next to her bed, unknown loc, patient noted to have skin tear to right elbow, patient currently denies pain, skin is cool dry and slightly palle, patient has periwick in place. Patient alert and oriented x 3, call light within reach, patient has no other needs at this time.
--- NOTE | 2024-08-20 08:17 | PC.NURSE ---
Patient provided with breakfast tray.
--- NOTE | 2024-08-20 09:37 | PC.NURSE ---
Attempted to walk patient with steady, however, after taking 2 steps forward, patient c/o feeling dizzy, patient denies. Dr. Irwin made aware.
[2024-08-20] MEDS: SODIUM CHLORIDE 0.9% 500 ML 500 ML 999 ML IV (09:43)
--- NOTE | 2024-08-20 12:28 | PC.NURSE ---
Physical Therapists at bedside to evaluate patient for fall risk and ADL's.
--- NOTE | 2024-08-20 15:40 | PC.NURSE ---
Spoke with Mita with s/s will evaluate patient for safe discharge. Patient lying in gurney sleeping, no distress noted, call light within reach
--- NOTE | 2024-08-20 16:19 | PC.NURSE ---
Spoke with S/S Mita states she spoke with family and grandson Ever who states they will be taking care of patient at home and decide as a family if patient needs placement at home, Dr. barajas is aware and ok to discharge, patient made aware of plan of care. Awaiting d/c paperwork.
--- NOTE | 2024-08-20 16:41 | PC.NURSE ---
Tameka at bedside, stating he needs help at home with patient, called [employer], Mita will come to bedside to speak with patient, Dr. Irwin made aware.
--- NOTE | 2024-08-20 17:33 | PC.CC ---
Addendum entered by Aaron Rider RN 08/20/24 17:39: Patient accepted by [facility], start of care 08/21/24. Original Note: Home health referrals sent through [email or web address]. Awaiting responses at this time.
== END 2024-08-20 17:47 | disposition home or self-care (01) ==
PROVIDERS: Registered Nurse General Practice; Emergency Provider Emergency Medicine; PCP Family Medicine
DX: I16.1 Hypertensive emergency (principal)
CPT/HCPCS: 51701; 36415; 70450; 71045; 72125; 73080; 73502; 73700; 80053; 80307; 81001; 82550; 83615; 83735; 83880; 84484; 85025; 85610; 85730; 93005; 96361; 96365; 99284; J0360; J0696; J7040

== ENCOUNTER → 2024-09-17 | Outpatient (CLI) | payer MEDICARE, SELFPAY ==
--- NOTE | 2024-09-17 09:00 | XR_ITS ---
Examination: MRI lumbar spine without contrast Date and time of exam: September 17, 2024 0911 hours INDICATION: Low back pain radiating down the legs beginning one year ago Technique: Multiple MRI axial and sagittal sections lumbar spine. Sagittal T2-weighted images, TR 3500, TE 118 T1 weighted transverse sections, TR 688 T8.5, T2-weighted sagittal sections T1 weighted sagittal sections TR 621, TE 30 T2 axial sections, TR 4, 190, TE 84. Findings: Grade 1 anterolisthesis L5 on S1 Advanced disc narrowing L5-S1 No acute lumbar fracture Heterogeneous marrow signal involving lumbar vertebral bodies Diffuse lumbar disc desiccation L5-S1 grade 1 anterolisthesis, 2 mm central lumbar disc bulge, mild bilateral L5 ganglionic compression secondary to the anterolisthesis L4-L5 5 mm central lumbar disc bulge extending to the foraminal regions with mild bilateral L4 ganglionic compression L3-L4 4 mm central lumbar disc bulge L2-L3 no focal disc protrusion L1-L2 no disc protrusion IMPRESSION: L5-S1 grade 1 anterolisthesis 2 mm central lumbar disc bulge mild bilateral L5 ganglionic compression L4-L5 5 mm on the lumbar disc bulge with mild bilateral L4 ganglionic impression L3-L4 4 mm central lumbar disc bulge
== END | disposition home or self-care (01) ==
PROVIDERS: PCP Family Medicine; Referring Provider Physical Medicine & Rehabilitation Pain Medicine; Visit Provider Physical Medicine & Rehabilitation Pain Medicine
DX: M51.360 Other intervertebral disc degeneration, lumbar region with discogenic back pain only (principal); M51.370 Other intervertebral disc degeneration, lumbosacral region with discogenic back pain only; G95.20 Unspecified cord compression
CPT/HCPCS: 72148

== ENCOUNTER → 2024-09-27 | Outpatient (CLI) | payer MEDICARE, SELFPAY ==
[2024-09-27 16:40] LABS: Basophils # (Auto) 0.1 Thou/mm3 (0.0-0.2); Basophils % (Auto) 1 % (0-2.5); Eosinophils # (Auto) 0.1 Thou/mm3 (0.0-0.5); Eosinophils % (Auto) 2 % (0-10); Hematocrit 37.7 % (36.0-46.0); Hemoglobin 12.7 g/dL (12.0-16.0); Immature Granulocytes % (Auto) 0 % (0-0); Immature Granulocytes Auto 0.01 Thou/mm3 (0.00-0.00); Lymphocytes # (Auto) 0.6 Thou/mm3 (1.0-4.8); Lymphocytes % (Auto) 14 % (10-50); Mean Corpuscular HGB Conc 33.7 g/dl (31.0-37.0); Mean Corpuscular Volume 92 fL (80-100); Monocytes # (Auto) 0.6 Thou/mm3 (0.0-0.8); Monocytes % (Auto) 12 % (0-12); Neutrophils # (Auto) 3.3 Thou/mm3 (1.8-7.7); Neutrophils % (Auto) 71 % (37-80); Nucleated Red Blood Cell % 0 /100 WBC (0); Platelet Count 277 Thou/mm3 (140-440); RDW Standard Deviation 46.7 fL (36.4-46.3); White Blood Count 4.6 Thou/mm3 (3.6-11.0)
[2024-09-27 17:11] LABS: Alanine Aminotransferase 9 U/L (10-49); Albumin, Serum 4.1 gm/dL (3.4-4.8); Albumin/Globulin Ratio 1.6 (1.2-2.2); Alkaline Phosphatase 115 U/L (46-116); Anion Gap 10 (7-16); Aspartate Amino Transferase 17 U/L (0-34); BUN/Creatinine Ratio 10 Ratio (12-20); Bilirubin,Total 0.7 mg/dL (0.3-1.2); Blood Urea Nitrogen 19 mg/dL (9-23); C-Reactive Protein < 0.5 mg/dL (0.0-0.9); Calcium 9.2 mg/dL (8.3-10.6); Calcium (Corrected) 9.2 mg/dL (8.5-10.1); Carbon Dioxide 32.2 mMol/L (20.0-31.0); Chloride 101 mMol/L (98-107); Creatinine (Component) 1.9 mg/dL (0.6-1.3); Globulin 2.6 gm/dL (2.3-3.5); Glucose 95 mg/dL (74-106); Osmolality,Calculated 287 (275-295); Sodium 143 mMol/L (136-145); Total Protein 6.7 gm/dL (5.7-8.2); eGFR 26 See Note
[2024-09-27 17:19] LABS: Sed Rate (ESR) 4 mm/hr (0-30)
[2024-09-29 12:33] LABS: Cocci Serology, IgM Negative (Negative)
[2024-09-30 12:34] LABS: Cocci Serology, IgG Negative (Negative)
== END | disposition home or self-care (01) ==
LOC: COPL 15:21
PROVIDERS: PCP Family Medicine; Referring Provider Nurse Practitioner; Visit Provider Nurse Practitioner
DX: M05.79 Rheumatoid arthritis with rheumatoid factor of multiple sites without organ or systems involvement (principal)
CPT/HCPCS: 36415; 80053; 85025; 85652; 86140; 86331; 86635

== ENCOUNTER → 2024-09-29 | Outpatient (CLI) | payer MEDICARE, SELFPAY ==
[2024-09-29 09:02] LABS: Quantiferon-TB* See Sep Rpt
== END | disposition home or self-care (01) ==
LOC: COPL 08:35
PROVIDERS: PCP Family Medicine; Referring Provider Internal Medicine Rheumatology; Visit Provider Internal Medicine Rheumatology
DX: M05.79 Rheumatoid arthritis with rheumatoid factor of multiple sites without organ or systems involvement (principal)
CPT/HCPCS: 86480

== ENCOUNTER → 2024-11-04 | Outpatient (CLI) | payer MEDICARE, SELFPAY ==
[2024-11-04 16:50] LABS: Basophils # (Auto) 0.1 Thou/mm3 (0.0-0.2); Basophils % (Auto) 1 % (0-2.5); Eosinophils % (Auto) 1 % (0-10); Hematocrit 37.7 % (36.0-46.0); Hemoglobin 12.6 g/dL (12.0-16.0); Immature Granulocytes % (Auto) 1 % (0-0); Immature Granulocytes Auto 0.04 Thou/mm3 (0.00-0.00); Lymphocytes # (Auto) 0.5 Thou/mm3 (1.0-4.8); Lymphocytes % (Auto) 9 % (10-50); Mean Corpuscular HGB Conc 33.4 g/dl (31.0-37.0); Mean Corpuscular Hemoglobin 31.4 pg (25.0-35.0); Mean Corpuscular Volume 94 fL (80-100); Monocytes # (Auto) 0.6 Thou/mm3 (0.0-0.8); Monocytes % (Auto) 10 % (0-12); Neutrophils # (Auto) 4.5 Thou/mm3 (1.8-7.7); Neutrophils % (Auto) 79 % (37-80); Nucleated Red Blood Cell % 0 /100 WBC (0); Platelet Count 259 Thou/mm3 (140-440); RDW Standard Deviation 46.5 fL (36.4-46.3); Red Blood Count 4.01 Miln/mm3 (4.00-5.20); White Blood Count 5.7 Thou/mm3 (3.6-11.0)
[2024-11-04 16:56] LABS: Parathyroid Hormone Intact 420.3 pg/ml (18.5-88.0)
[2024-11-04 16:58] LABS: Anion Gap 8 (7-16); BUN/Creatinine Ratio 11 Ratio (12-20); Blood Urea Nitrogen 17 mg/dL (9-23); Calcium 9.3 mg/dL (8.3-10.6); Calcium (Corrected) 9.3 mg/dL (8.5-10.1); Carbon Dioxide 30.6 mMol/L (20.0-31.0); Chloride 103 mMol/L (98-107); Creatinine (Component) 1.6 mg/dL (0.6-1.3); Glucose 121 mg/dL (74-106); Osmolality,Calculated 285 (275-295); Phosphorous 2.6 mg/dL (2.4-5.1); Potassium 3.2 mMol/L (3.4-5.1); Sodium 142 mMol/L (136-145); eGFR 32 See Note
[2024-11-04 17:00] LABS: Vitamin D 25 Hydroxy Total 23.2 ng/mL (7.3-40.2)
== END | disposition home or self-care (01) ==
PROVIDERS: PCP Family Medicine; Referring Provider Internal Medicine Nephrology; Visit Provider Internal Medicine Nephrology
DX: E55.9 Vitamin D deficiency, unspecified (principal); I10 Essential (primary) hypertension
CPT/HCPCS: 36415; 80069; 81001; 82306; 83970; 85025

== ENCOUNTER 2024-11-30 18:42 | Inpatient (IN) | payer MEDICARE, SELFPAY ==
--- NOTE | 2024-11-30 18:59 | EKG_ITS ---
[facility] Test Date: 2024-11-30 Pat Name: WILDER FOX Department: Room: - Gender: Female Superintendent Transmission: : 1940 Requested By: ED Temporary Provider Order Number: [id number] Reading MD: ED Temporary Provider Measurements Intervals [place] Rate: 79 P: CT: QRS: 9 QRSD: 88 T: 259 QT: 338 QTc: 388 Interpretive Statements ATRIAL FIBRILLATION SEPTAL MYOCARDIAL INFARCTION , OF INDETERMINATE AGE [40+ ms Q WAVE IN V1/V2] MODERATE T-WAVE ABNORMALITY, CONSIDER INFERIOR ISCHEMIA [-0.1+ mV T-WAVE IN II/aVF] Compared to ECG 08/19/2024 20:30:39 Myocardial infarct finding now present T-wave abnormality now present Possible ischemia now present /store/S0/[id number]/ecg/[id number].pdf
[2024-11-30 19:33] VITALS: BP 173/92; PULSE 94; RESP 19; TEMP 36.6; O2SAT 95
--- NOTE | 2024-11-30 19:36 | PD.EDCHEST ---
ED Chest Pain RME/HPI General Chief Complaint: Chest Pain Stated Complaint: CHEST PAIN WITH ELEVATED TROPONIN , PRIMARY SENT Time Seen by Provider: 11/30/24 19:16 Arrival date/time: 11/30/24 18:42 RME / HPI RME / HPI narrative: This section includes all my notes and documentations, including HPI, PE, and ED course. Brandin Goetz MD HPI: 83yo female here with chest pain for the last few hours. About a week ago, she had possible falling and/or syncopal episode. Details unknown. Patient can't remember. No witnesses. Normally, she is fully alert and oriented and fully independent. Younger brother present today. He reports for about a week, she has been more confused and can't ambulate. And definitely not independent currently. No other complaints. ROS: All negative except as documented in HPI. Physical Exam: General: Alert and oriented X 1. No acute distress when remaining still. High BP noted. Eyes: Conjunctivae and lids clear. EOMI. PERRL. ENT: No nasal congestion. Neck: Supple. No carotid bruit. No JVD. Heart: Irregularly irregular (79 bpm). Lungs: No respiratory distress. Good air movement. No rhonchi, wheezing, rales. Chest: No tenderness. Abdomen: Soft and nontender. Normal bowel sounds. No distension. No rebound or guarding. Back: No CVA tenderness. Legs: No clubbing, cyanosis, edema. Skin: Warm and dry. Neuro: Alert and oriented X 1. Cranial Nerves II-XII grossly intact. No peripheral motor deficits. I reviewed all diagnostic test results. My interpretation of the EKG is atrial fibrillation (79 bpm). My review of the CT head report is NAD. My review of the CT cervical spine report is NAD. My review of the CT chest abdomen pelvis report is NAD. Blood and urine tests remarkable for Potassium 3.2, Creatinine 1.7, Troponin 0.100. COVID/Influenza negative. At this point, diagnoses include syncope, atrial fibrillation, hypertensive urgency, and elevated troponin. Treatment here included Potassium, Metoprolol, and Aspirin. Patient remained stable. I discussed the case with our hospitalist. About the presentation and exam and diagnostics and treatments here. And need of further care in the hospital. Will accept the patient. Brandin Goetz MD Related Data Home Medications ?Medication ?Instructions ?Recorded ?Confirmed bumetanide 2 mg tablet 2 mg PO BID #0 tabs 09/08/13 12/01/24 tofacitinib 5 mg tablet (Xeljanz) 1 tab PO BID ##60 09/08/13 12/01/24 ergocalciferol (vitamin D2) 1,250 50,000 unit PO QWEEK 10/01/17 12/01/24 mcg (50,000 unit) capsule (Vitamin D2) nifedipine 30 mg tablet,extended 30 mg PO BID 10/01/17 12/01/24 release 24 hr pantoprazole 40 mg tablet,delayed 40 mg PO QAM 10/01/17 12/01/24 release potassium chloride 20 mEq 20 meq PO BID 10/01/17 12/01/24 tablet,extended release aspirin 81 mg chewable tablet 81 mg PO QDAY 09/19/19 12/01/24 Held on 10/31/20. Instructions: Resume on 11/02/20. HOLD ASPRIN FOR TWO DAYS MAY RESUME ON Thursday11/02/20 montelukast 10 mg tablet 10 mg PO QPM 09/19/19 12/01/24 (Singulair) Allergies Allergy/AdvReac Type Severity Reaction Status Date / Time influenza virus vaccine ts Allergy Severe Diarrhea Verified 11/30/24 18:47 [id number] (36 mos,up) (From Fluarix) adalimumab (From Humira) Allergy Intermediate Diarrhea Verified 11/30/24 18:47 bacitracin Allergy Verified 11/30/24 18:47 Review of Systems Review of Systems Systems Reviewed: All systems reviewed, normal except as documented Past Medical History Past Medical History NEUROLOGIC: Positive Neurological Disorders, Cerebrovascular Accident, Transient Ischemic Attacks (TIA) and Head Trauma; Negative Dementia, Alzheimer's Disease, Parkinson's Disease, Brain Tumor, Meningitis, Seizures, Epilepsy, Multiple Sclerosis, Cerebral Palsy, Amyotrophic Lateral Sclerosis (ALS/Vandana Gehrig's), Guillain-Lincoln Syndrome, Spina Bifida, Paralysis, Peripheral Neuropathy, Rubalcava's Palsy, Subdural Hematoma, Migraine, Spinal Cord Injury or Traumatic Brain Injury CARDIAC: Positive Cardiac Disorders, Cardiac Arrhythmia, Atrial Fibrillation, Atherosclerotic Heart Disease, Peripheral Vascular Disease, Hypercholesterolemia, Edema, Hypertension and Varicose Veins; Negative Myocardial Infarction, Angina, Heart Murmur, Coronary Artery Disease, Aneurysm, Congestive Heart Failure, Congenital Heart Disease, Valvular Heart Disease, Rheumatic Fever, Cardiomyopathy, Pericarditis, Cellulitis, Deep Vein Thrombosis or Hypotension RESPIRATORY: Negative Chronic Obstructive Pulmonary Disease (COPD), Asthma, Bronchitis, Emphysema, Pneumonia, Pulmonary Fibrosis, Cystic Fibrosis, Tuberculosis, Pulmonary Embolism, Pulmonary Edema or Sleep Apnea GASTROINTESTINAL: Positive Gastrointestinal Disorders, Gall Bladder Disease, Hemorrhoids, Gastroesophageal Reflux Disease and Obesity; Negative Hepatitis, Cirrhosis, Pancreatitis, Celiac Disease, Gastrointestinal Bleed, Esophageal Varices, Paul's Esophagus, Colitis, Ulcerative Colitis, Diverticulitis, Diverticulosis, Ulcer, Colorectal Cancer, Irritable Bowel, Crohn's Disease, Obstructive Bowel or Hiatal Hernia GENITOURINARY: Positive Genitourinary Disorders and Renal Disease; Negative Kidney Stones, Polycystic Kidney Disease, Neurogenic Bladder, Inguinal Hernia, Dialysis or Prostate Cancer REPRODUCTIVE: Positive Previous Pregnancies; Negative Breast Cancer, Endometriosis, Genital Herpes, Gonorrhea, Pelvic Inflammatory Disease, Syphilis, Testicular Cancer or Uterine Prolapse MUSCULOSKELETAL: Positive Musculoskeletal Disorders, Arthritis, Rheumatoid Arthritis and Fractures; Negative Muscular Dystrophy, Myasthenia Gravis, Marfan's Syndrome, Bone Cancer, Osteoporosis, Degenerative Disk Disease, Gout, Scoliosis, Carpal Tunnel Syndrome, Fibromyalgia, Degenerative Joint Disease, Osteomyelitis or Poliovirus ENT: Positive Cataracts, Glaucoma and Head Trauma; Negative Blind, Retinal Detachment, Macular Degeneration, Ear Infection, Deafness or Eye Prosthesis ENDOCRINE: Negative Endocrine Disorders, Diabetes Mellitus Type 1, Diabetes Mellitus Type 2, Hypoglycemia, Bradley's Syndrome, Maceo's Disease, Hyperthyroidism, Hypothyroidism, Parathyroid Disease, Pituitary Disease, Systemic Lupus Erythematosus, Syndrome of Inappropriate Antidiuretic Hormone (SIADH), Adrenal Disease or Graves' Disease HEMATOLOGIC: Positive Blood Disorders, Anemia and Clotting Problems; Negative Leukemia, Hemophilia, Thalassemia or Sickle Cell Disease PSYCHO/SOCIAL: Positive Psychiatric Problems, Depression and Anxiety; Negative Schizophrenia, Recreational Drug Use, Bipolar Disorder, Behavior Problems, Self-Mutilation, Attention Deficit Disorder, Attention Deficit Hyperactivity Disorder, Depression, Post Traumatic Stress Disorder or Eating Disorder OTHER HISTORY: Positive Hospitalization, Shingles, Falls, Chicken Pox, Measles, Mumps and Cancer; Negative Autoimmune Disease, Down Syndrome, Autism, Developmental Delay, Blood Transfusions, Blood Transfusion Reaction, Anesthesia Reactions, Organ Transplant, Chemotherapy, Radiation Therapy, Hyperbaric Therapy, MRSA, VRSA, Vancomycin-Resistant Enterococci, Rubella (Setswana Measles), Pertussis, Clostridium Difficile, Breast Cancer, Cervical Cancer, Colorectal Cancer, Lung Cancer, Ovarian Cancer, Prostate Cancer or Testicular Cancer Family History FAMILY HISTORY: Positive Family Psychiatric Problems, Family Cardiac Disorders, Family Cancer and Family Surgery; Negative Family Respiratory Disorders, Family Gastrointestinal Problems or Family Anesthesia Reaction Surgical History SURGICAL: Positive Eye Surgery, Nose Surgery, Tonsillectomy, Abdominal Surgery, Joint Replacement and Hysterectomy; Negative Cardiac Surgery, Open Heart Surgery, Coronary Artery Bypass Graft, Valve Replacement, Vascular Surgery, Coronary Stent, Cardiac Catheterization, Pacemaker, Angiogram, Auto Implanted Cardiovert Defib, Carotid Endarterectomy, Endocrine Surgery, Thyroidectomy, Ear Surgery, Tympanostomy Tube, Oral Surgery, Adenoidectomy, Cochlear Implant, Corneal Transplant, Throat Surgery, Tracheostomy, Gastric Bypass Surgery, Gastrostomy, Bowel Surgery, Nephrectomy, Amputation, Open Reduction Internal Fixation, Arthroscopy, Neurologic Surgery, Brain Shunt, Mastectomy, Lumpectomy, Tubal Ligation, Section or Organ Transplant Social History SMOKING STATUS: Never smoker SECOND HAND EXPOSURE: No ED Exam Narrative Physical exam: As noted in HPI. Course Quality Measures none Orders Category Date Time Status Bedside COVID-19 Antigen Test NOW Care 11/30/24 19:43 Active Bedside Influenza A&B Antigen Test NOW Care 11/30/24 19:43 Completed EKG (ED ONLY) *Do not use* NOW Care 11/30/24 18:59 Completed Saline [Insert IV] NOW Care 11/30/24 19:43 Completed Straight [In and Out Catheter] X1 Care 11/30/24 19:[address] cervical spine wo con Stat Exams 11/30/24 19:[address] chest abdomen pelvis wo Stat Exams 11/30/24 19:[address] head/brain wo con Stat Exams 11/30/24 19:44 Completed EKG (ED Only) Stat Exams 11/30/24 18:59 Draft BNP [B-Type Natriuretic Peptide] Stat Lab 11/30/24 20:20 Completed Beta Hydroxybutyrate Stat Lab 11/30/24 20:20 Completed Bilirubin,Direct Stat Lab 11/30/24 20:20 Completed Blood Culture (Lab) Stat Lab 11/30/24 20:25 Received CBC Stat Lab 11/30/24 20:20 Completed CK [Creatine Kinase] Stat Lab 11/30/24 20:20 Completed CMP [Comprehensive Metabolic Panel] Stat Lab 11/30/24 20:20 Completed CRP [C-Reactive Protein] Stat Lab 11/30/24 20:20 Completed ESR [Sed Rate (ESR)] Stat Lab 11/30/24 20:20 Completed Free T4 (Free Thyroxine) Stat Lab 11/30/24 20:20 Completed Lactate (Lactic Acid) Stat Lab 11/30/24 20:20 Completed Magnesium Stat Lab 11/30/24 20:20 Completed PT [Prothrombin Time with INR] Stat Lab 11/30/24 20:20 Completed PTT [Partial Thromboplastin Time] Stat Lab 11/30/24 20:20 Completed Procalcitonin Stat Lab 11/30/24 20:20 Completed TSH [Thyroid Stimulating Hormone] Stat Lab 11/30/24 20:20 Completed Troponin I Stat Lab 11/30/24 20:20 Completed UA, C/S IF [Urinalysis, C/S if Indicated] Stat Lab 11/30/24 21:14 Completed Aspirin Chew Med 11/30/24 19:43 Discontinued 324 mg PO X1 ONE KCL 10% Liq UDC 15 ML Med 11/30/24 21:45 Discontinued 40 meq PO X1 ONE Metoprolol Tartrate [Lopressor] Med 11/30/24 19:43 Discontinued 12.5 mg PO X1 ONE Vital Signs Vital signs: Vital Signs Temperature 97.9 F 11/30/24 19:33 Pulse Rate 94 11/30/24 19:33 Respiratory Rate 19 11/30/24 19:33 Blood Pressure 173/92 H 11/30/24 19:33 Pulse Oximetry (%) 95 11/30/24 19:33 Oxygen Delivery Method Room Air 11/30/24 19:33 Chest Pain MDM Narrative MDM Narrative:: 83yo female here with chest pain for the last few hours. About a week ago, she had possible falling and/or syncopal episode. Details unknown. Patient can't remember. No witnesses. Normally, she is fully alert and oriented and fully independent. Younger brother present today. He reports for about a week, she has been more confused and can't ambulate. And definitely not independent currently. No other complaints. Patient data External records reviewed:: [facility] previous records (Per chart review, patient was seen here on 08/19/24 for a fall.) Clinical information provided by:: patient and family (brother) Social determinants that could affect healthcare access:: none Patient has the following chronic illnesses:: aFib on Eliquis, HTN, HLD, GERD, rheumatoid arthritis How is presenting disease/condition affected by chronic disease/condition?: uneffected by Evaluation data The following diagnostics were reviewed and interpreted by me:: lab results, radiology exam(s) and EKG tracing(s) (My interpretation of the EKG is: Atrial fibrillation (79 bpm) with nonspecific ST-T changes. Brandin Goetz MD) Lab and/or radiology exams considered but not ordered:: nonw Interpretation Summary: I reviewed all diagnostic test results. My interpretation of the EKG is atrial fibrillation (79 bpm). My review of the CT head report is NAD. My review of the CT cervical spine report is NAD. My review of the CT chest abdomen pelvis report is NAD. Blood and urine tests remarkable for Potassium 3.2, Creatinine 1.7, Troponin 0.100. COVID/Influenza negative. Medications / Prescriptions Medications or Prescriptions considered but not ordered:: none Medication administrations:: Medication Administration History Acetaminophen (Acetaminophen 325 Mg Tablet) 650 mg PO Q6H PRN PRN Reason: PAIN SCALE 1-3 (mild Stop: 12/30/24 22:44 Apixaban (Apixaban 2.5 Mg Tablet) 2.5 mg PO BID [facility] Stop: 12/31/24 08:59 Aspirin (Aspirin Ec 81 Mg Tabec) 81 mg PO QDAY [facility] Stop: 12/31/24 08:59 Lactated Ringer's (Lactated Ringers) 500 mls @ 50 mls/hr IV .Q10H ONE Stop: 12/01/24 08:51 Last Admin: 11/30/24 23:11 Dose: 50 mls/hr Documented By: EE Nifedipine (Nifedipine Xl 30 Mg Tabcr) 30 mg PO BID [facility] Stop: 12/31/24 08:59 Non-Formulary Medication (Xeljanz) 1 tab PO BID [facility] Stop: 12/31/24 08:59 Ondansetron HCl (Ondansetron Inj 2 Mg/Ml Inj 2 Ml) 4 mg IVP Q6H PRN; Protocol PRN Reason: NAUSEA OR VOMITING Stop: 12/30/24 22:44 Sennosides (Senna Tablet) 1 tab PO QDAY [facility]; Protocol Stop: 12/31/24 08:59 Discontinued Medications Aspirin (Aspirin 81 Mg Chew) 324 mg PO X1 ONE Stop: 11/30/24 19:44 Last Admin: 11/30/24 21:03 Dose: 324 mg Documented By: EE Magnesium Sulfate (Magnesium Sulfate Ivpb) 4 gm in 50 mls @ 12.5 mls/hr IV X1 ONE Stop: 12/01/24 02:51 Last Admin: 11/30/24 23:11 Dose: 12.5 mls/hr Documented By: EE Metoprolol Tartrate (Metoprolol Tartrate 25 Mg Tablet) 12.5 mg PO X1 ONE Stop: 11/30/24 19:44 Last Admin: 11/30/24 21:03 Dose: 12.5 mg Documented By: EE Nifedipine (Nifedipine Xl 30 Mg Tabcr) 30 mg PO BID [facility] Stop: 12/30/24 22:59 Potassium Chloride (Potassium Chloride 10% 20 Meq/15 Ml Udc) 40 meq PO X1 ONE Stop: 11/30/24 21:46 Last Admin: 11/30/24 22:47 Dose: 40 meq Documented By: EE Potassium, Metoprolol, Aspirin Consultations Consultation(s) initiated? (list below): Yes Consultation #1 (Physician, Specialty, Details): I discussed the case with our hospitalist. About the presentation and exam and diagnostics and treatments here. And need of further care in the hospital. Will accept the patient. Diagnosis Chest Pain Differential Diagnosis: pneumothorax, stable angina, unstable angina pectoris, atypical chest pain, st elevation myocardial infarction, costochondritis, chest pain and biliary colic Most likely diagnosis given after review of the tests above:: At this point, diagnoses include syncope, atrial fibrillation, hypertensive urgency, and elevated troponin. Admission Indicated Admission indicated?: indicated Explain why admission is indicated or not indicated:: Syncope, atrial fibrillation, hypertensive urgency, and elevated troponin. Admission Request Was there a request for admission?: Yes Admission Attestation Admission request attestation: Discussed case with Hospitalist service regarding admission. Discussed patients ED course, exam findings, labs, and radiology results. The Hospitalist [agrees] to accept the patient for admission. Disposition Plan Disposition Plan: Admit Discharge Plan Plan Patient Disposition: Admit Acute Care w/in Hospital Problem List Clinical Impression: Syncope, Atrial fibrillation, Hypertensive urgency, Elevated troponin
--- NOTE | 2024-11-30 19:44 | XR_ITS ---
Examination: CT brain head without contrast. 2-D sagittal coronal reconstructions Date and time of exam:November 30, 2024, 2033 hours INDICATIONS: Patient fell today with injury head, head pain CTDI: vol (mGy):48.3 DLP: (mGycm):961 Technique: Multiple CT axial sections of the brain have been obtained, 5 mm slice thickness. Contrast has not been administered. 2-D sagittal, coronal reconstructions have been obtained Low dose protocols were performed. One or more of the following dose reduction techniques were used; automated exposure control, adjustment of the mA and/or KV according to patient size, use of iterative reconstruction technique. Findings: No significant ventricular enlargement. Intra-axial or extra-axial hemorrhage density is not seen. No mass effect or midline shift Basal cisterns are not remarkable. Fourth ventricle is midline. Cranial vault intact. Impression: Negative for acute hemorrhage, mass effect or midline shift
--- NOTE | 2024-11-30 19:44 | XR_ITS ---
Examination: CT chest, without intravenous contrast. CT abdomen, without intravenous contrast. CT pelvis, without intravenous contrast. 2-D sagittal and coronal reconstructions. 3-D reconstructions. Date and time of exam:November 30, 2024, 2038 hours INDICATIONS: Patient fell today with individuals narrowing, chest pain abdomen pain CTDI vol (mgy) 13 DLP (MGycm)934 Technique: Multiple CT images, 3.0 mm slice thickness, obtained chest, abdomen, pelvis, with the high-resolution 64 slice scanner.. Sagittal and coronal 2-D reconstructions are obtained. 3-D reconstructions Low dose protocols were performed. One or more of the following dose reduction techniques were used; automated exposure control, adjustment of the mA and/or KV according to patient size, use of iterative reconstruction technique. Findings: Right thyroid lobe extends substernal Thoracic aorta and pulmonary arteries appear intact No hemopericardium No pneumothorax pulmonary contusion or hemothorax Manubrium sternum thoracic and lumbar vertebral bodies appear intact Ribs appear intact Mild enlargement in cardiac contour No liver or splenic or renal laceration Gallstones Fatty replacement of the pancreas Abdominal aorta is intact No free blood in the abdomen Negative for pneumoperitoneum Urinary bladder intact Absent uterus Bones of the pelvis and hips appear intact IMPRESSION: Thoracic aorta pulmonary arteries intact No hemopericardium, pneumothorax pulmonary contusion or hemothorax No abdominal parenchymal laceration Abdominal aorta intact No free blood in the abdomen or pelvis. Osseous structures appear intact
--- NOTE | 2024-11-30 19:44 | XR_ITS ---
Examination: CT cervical spine without contrast 2-D sagittal reconstructions 2-D coronal reconstructions 3-D reconstructions. Exam date and time:December 01, 20247 hours INDICATIONS: Patient fell today with into the neck, neck pain CTDI:vol (mGy) 8.16 DLP: (mGycm) 161 Technique: Multiple 2 mm axial sections of the cervical spine have been obtained. The coronal and sagittal reconstructions have been obtained. 3-D reconstructions have been obtained. Low dose protocols were performed. One or more of the following dose reduction techniques were used; automated exposure control, adjustment of the mA and/or KV according to patient size, use of iterative reconstruction technique. Findings: Axial sections demonstrate intact base of the skull. C1 exhibit satisfactory relationship to the odontoid. No acute cervical vertebral body fracture seen. Alignment posterior spinous processes satisfactory. Impression: No acute cervical fracture.
[2024-11-30 20:34] LABS: Lactate (Lactic Acid) 1.4 mMol/L (0.4-2.0)
[2024-11-30 20:41] LABS: Basophils # (Auto) 0.1 Thou/mm3 (0.0-0.2); Basophils % (Auto) 1 % (0-2.5); Eosinophils # (Auto) 0.2 Thou/mm3 (0.0-0.5); Eosinophils % (Auto) 2 % (0-10); Hematocrit 41.9 % (36.0-46.0); Hemoglobin 13.6 g/dL (12.0-16.0); Immature Granulocytes Auto 0.02 Thou/mm3 (0.00-0.00); Lymphocytes # (Auto) 0.5 Thou/mm3 (1.0-4.8); Lymphocytes % (Auto) 7 % (10-50); Mean Corpuscular HGB Conc 32.5 g/dl (31.0-37.0); Mean Corpuscular Hemoglobin 31.4 pg (25.0-35.0); Mean Corpuscular Volume 97 fL (80-100); Monocytes # (Auto) 0.7 Thou/mm3 (0.0-0.8); Monocytes % (Auto) 10 % (0-12); Neutrophils # (Auto) 5.4 Thou/mm3 (1.8-7.7); Neutrophils % (Auto) 80 % (37-80); Nucleated Red Blood Cell # 0.00 Thou/mm3 (0.00-0.00); Nucleated Red Blood Cell % 0 /100 WBC (0); Platelet Count 198 Thou/mm3 (140-440); RDW Standard Deviation 47.1 fL (36.4-46.3); Red Blood Count 4.33 Miln/mm3 (4.00-5.20); White Blood Count 6.7 Thou/mm3 (3.6-11.0)
[2024-11-30 20:50] LABS: Beta Hydroxybutyrate 0.1 mmol/L (<0.6)
[2024-11-30 20:54] LABS: INR 1.1 (0.9-1.3); Partial Thromboplastin Time 23.2 Seconds (22.0-36.0); Prothrombin Time 11.7 Seconds (9.0-12.2)
[2024-11-30 20:55] VITALS: BMI 29.1
[2024-11-30 20:56] LABS: Sed Rate (ESR) 17 mm/hr (0-30)
[2024-11-30 21:01] VITALS: BP 161/119; PULSE 92; RESP 23; TEMP 36.7; O2SAT 95
[2024-11-30 21:03] VITALS: BP 161/119; PULSE 92
[2024-11-30] MEDS: METOPROLOL TARTRATE 25 MG TABLET 12.5 MG PO (21:03)
[2024-11-30] MEDS: ASPIRIN 81 MG CHEW 324 MG PO (21:03)
[2024-11-30 21:15] LABS: B-Type Natriuretic Peptide 48 pg/mL (0-100)
[2024-11-30 21:22] LABS: Alanine Aminotransferase 12 U/L (10-49); Albumin, Serum 3.7 gm/dL (3.4-4.8); Albumin/Globulin Ratio 1.4 (1.2-2.2); Alkaline Phosphatase 105 U/L (46-116); Anion Gap 10 (7-16); Aspartate Amino Transferase 20 U/L (0-34); BUN/Creatinine Ratio 12 Ratio (12-20); Bilirubin,Direct 0.5 mg/dL (0.0-0.3); Bilirubin,Total 1.2 mg/dL (0.3-1.2); Blood Urea Nitrogen 21 mg/dL (9-23); C-Reactive Protein 0.9 mg/dL (0.0-0.9); Calcium 10.0 mg/dL (8.3-10.6); Calcium (Corrected) 10.2 mg/dL (8.5-10.1); Carbon Dioxide 29.3 mMol/L (20.0-31.0); Chloride 102 mMol/L (98-107); Creatine Kinase 39 U/L (34-171); Creatinine (Component) 1.7 mg/dL (0.6-1.3); Estimated Creatinine Clearance 30.8 mL/min (>60); Free T4 (Free Thyroxine) 1.57 ng/dL (0.89-1.76); Globulin 2.6 gm/dL (2.3-3.5); Glucose 127 mg/dL (74-106); Magnesium 1.7 mg/dL (1.6-2.6); Osmolality,Calculated 286 (275-295); Potassium 3.2 mMol/L (3.4-5.1); Procalcitonin 0.11 ng/ml (0.0-0.49); Sodium 141 mMol/L (136-145); Thyroid Stimulating Hormone 1.86 uIU/mL (0.55-4.78); Total Protein 6.3 gm/dL (5.7-8.2); eGFR 30 See Note
[2024-11-30 21:22] LABS: Collection Type, Urine Clean Catch; WBC,Urine 0 /hpf (0-5)
[2024-11-30 21:24] LABS: Troponin I 0.100 ng/mL (0.0-0.045)
[2024-11-30 21:42] LABS: Bacteria,Urine Rare; Bilirubin,Urine Negative (Negative); Blood,Urine 1+ (Negative); Clarity,Urine Clear (Clear/Hazy); Color,Urine Yellow (Lt Yel-Yel); Culture Indicated,Urine Not Indicated; Glucose, Urine Negative (Negative); Ketones,Urine Negative (Negative); Leukocyte Esterase,Urine Negative (Negative); Nitrite,Urine Negative (Negative); PH,Urine 6.0 (5.0-7.0); Protein,Urine Trace (Neg - Trace); RBC,Urine 39 /hpf (0-3); Specific Gravity,Urine 1.025 (1.001-1.035); Squamous Epithelial Cell,Urine 2 /hpf (0-5); Urobilinogen,Urine 2.0 mg/dL (0.0-1.0)
[2024-11-30] MEDS: POTASSIUM CHLORIDE 10% 20 MEQ/15 ML UDC 40 MEQ PO (22:47)
--- NOTE | 2024-11-30 22:55 | PD.RESHP ---
Documentation for date of: 11/30/24 HPI History of Present Illness Chief complaint: Chest pain History of present illness: 83-year-old female with past medical history of hypertension, hyperlipidemia, rheumatoid arthritis on Xeljanz, A-fib on Eliquis presenting to the ED on 12/01 with episode of chest pain. Patient is accompanied by her brother who is bedside and corroborated her story. Patient apparently lives with grandson and has been experiencing episodes of syncope and has not been able to get an appointment with her PCP. Patient has significant cardiac history and is on Eliquis for A-fib, follows Dr. Dutta outpatient but has not done so in many months. Patient's brother states that last Thursday 11/23 patient had a fall and has been largely wheelchair-bound ever since but prior to that episode the patient was able to ambulate using a walker. Patient states that the chest pain was substernal and started earlier today with some radiation to her left shoulder accompanied with some shortness of breath but denies having any palpitations or dizziness. Patient has orthopnea and sleeps on a recliner and states that she gets lower extremity edema from time to time. Medical history: As stated above Surgical history: Right knee replacement, facial reconstruction surgery after a fall Allergies: Adalimumab causes diarrhea, bacitracin, influenza virus? Medications: Pending med rec Family history: Noncontributory Social history: Patient lives with grandson, used to be able to ambulate using walker but now is largely wheelchair-bound, denies ever smoking cigarettes, alcohol use or drug use ROS: All 12 systems assessed and the patient denies unless otherwise stated in HPI In the ED, patient presented hypertensive urgency blood pressure 173/92, heart rate 94, respiratory rate 19, temperature 97.9 and saturating 95 on room air. Pertinent lab findings included WBC of 6.7, hemoglobin 13.6, potassium 3.2, creatinine 1.7, BUN 21 and a GFR of 30, lactic acid of 1.4, magnesium 1.7, troponin initially 0.102 has downtrended to 0.100, BNP of 48, TSH 1.86. Urinalysis does not show any signs of infection. Cervical spine CT shows no acute cervical fractures, CT chest abdomen pelvis shows osseous structures that appear intact otherwise no concerning findings, head CT is negative for any acute findings and EKG shows atrial fibrillation but there appears to be P waves. Patient will be admitted for hypertensive urgency with mild troponin elevation likely secondary to NSTEMI type II along with workup for cardiac syncope. Exam Vital Signs Temp Pulse Resp BP Pulse Ox O2 Del Method 98.0 F 92 23 H 161/119 H 95 Room Air 11/30/24 21:01 11/30/24 21:03 11/30/24 21:01 11/30/24 21:03 11/30/24 21:01 11/30/24 21:01 Narrative Exam Physical Exam: GENERAL: Awake, answering questions appropriately, appears stated age HEENT: NC/AT. Moist mucosa. PERRLA/EOMI. CARDIO: Heart RRR, no obvious murmurs, no JVD. PULM: No coughing or visible SOB. Lungs CTA B/L. GI: Abdomen soft, NT/ND, +BS. SKIN/MSK/EXT: Bilateral upper extremities have ecchymoses in bilateral lower extremities have dilated varicose veins. No rashes/edema/amputations noted. +Pedal pulses present B/L. NEURO: Oriented x3, Moves extremities x4, no focal neurologic deficits noted. Results: Labs 12/01/24 03:10 12/01/24 02:11 Labs: Short CBC 11/30/24 Range/Units 20:20 WBC 6.7 (3.6-11.0) Thou/mm3 Hgb 13.6 (12.0-16.0) g/dL Hct 41.9 (36.0-46.0) % Plt Count 198 D (140-440) Thou/mm3 BMP 11/30/24 20:20 Sodium 141 Potassium 3.2 L Chloride 102 Carbon Dioxide 29.3 BUN 21 Creatinine 1.7 H Glucose 127 H Calcium 10.0 Cardiac Enzymes 11/30/24 Range/Units 20:20 Total Creatine Kinase 39 (34-171) U/L Troponin I 0.100 H* (0.0-0.045) ng/mL Liver Function 11/30/24 Range/Units 20:20 Total Bilirubin 1.2 (0.3-1.2) mg/dL Direct Bilirubin 0.5 H (0.0-0.3) mg/dL AST 20 (0-34) U/L ALT 12 (10-49) U/L Alkaline Phosphatase 105 (46-116) U/L Albumin 3.7 D (3.4-4.8) gm/dL Urine 11/30/24 Range/Units 21:14 Urine Color Yellow (Lt Yel-Yel) Urine Clarity Clear (Clear/Hazy) Urine pH 6.0 (5.0-7.0) Ur Specific [place] 1.025 (1.001-1.035) Urine Protein Trace (Neg - Trace) Urine Glucose (UA) Negative (Negative) Quality Measures Quality Measures none Advance care planning discussed with:: patient and sibling Medications Home Medications and Allergies Home Medications ?Medication ?Instructions ?Recorded ?Confirmed ?Type bumetanide 2 mg tablet 2 mg PO BID #0 tabs 09/08/13 12/01/24 History tofacitinib 5 mg tablet (Xeljanz) 1 tab PO BID ##60 09/08/13 12/01/24 History ergocalciferol (vitamin D2) 1,250 50,000 unit PO QWEEK 10/01/17 12/01/24 History mcg (50,000 unit) capsule (Vitamin D2) nifedipine 30 mg tablet,extended 30 mg PO BID 10/01/17 12/01/24 History release 24 hr pantoprazole 40 mg tablet,delayed 40 mg PO QAM 10/01/17 12/01/24 History release potassium chloride 20 mEq 20 meq PO BID 10/01/17 12/01/24 History tablet,extended release aspirin 81 mg chewable tablet 81 mg PO QDAY 09/19/19 12/01/24 History Held on 10/31/20. Instructions: Resume on 11/02/20. HOLD ASPRIN FOR TWO DAYS MAY RESUME ON Thursday11/02/20 montelukast 10 mg tablet 10 mg PO QPM 09/19/19 12/01/24 History (Singulair) Allergies Allergy/AdvReac Type Severity Reaction Status Date / Time influenza virus vaccine ts Allergy Severe Diarrhea Verified 11/30/24 18:47 [id number] (36 mos,up) (From Fluarix) adalimumab (From Humira) Allergy Intermediate Diarrhea Verified 11/30/24 18:47 bacitracin Allergy Verified 11/30/24 18:47 Visit Medications Acetaminophen (Acetaminophen 325 Mg Tablet) 650 mg PO Q6H PRN PRN Reason: PAIN SCALE 1-3 (mild Stop: 12/30/24 22:44 Apixaban (Apixaban 2.5 Mg Tablet) 2.5 mg PO BID [facility] Stop: 12/31/24 08:59 Aspirin (Aspirin Ec 81 Mg Tabec) 81 mg PO QDAY [facility] Stop: 12/31/24 08:59 Lactated Ringer's (Lactated Ringers) 500 mls @ 50 mls/hr IV .Q10H ONE Stop: 12/01/24 08:51 Magnesium Sulfate (Magnesium Sulfate Ivpb) 4 gm in 50 mls @ 12.5 mls/hr IV X1 ONE Stop: 12/01/24 02:51 Non-Formulary Medication (Xeljanz) 1 tab PO BID [facility] Stop: 12/31/24 08:59 Ondansetron HCl (Ondansetron Inj 2 Mg/Ml Inj 2 Ml) 4 mg IVP Q6H PRN; Protocol PRN Reason: NAUSEA OR VOMITING Stop: 12/30/24 22:44 Sennosides (Senna Tablet) 1 tab PO QDAY [facility]; Protocol Stop: 12/31/24 08:59 Discontinued Medications Aspirin (Aspirin 81 Mg Chew) 324 mg PO X1 ONE Stop: 11/30/24 19:44 Last Admin: 11/30/24 21:03 Dose: 324 mg Metoprolol Tartrate (Metoprolol Tartrate 25 Mg Tablet) 12.5 mg PO X1 ONE Stop: 11/30/24 19:44 Last Admin: 11/30/24 21:03 Dose: 12.5 mg Nifedipine (Nifedipine Xl 30 Mg Tabcr) 30 mg PO BID [facility] Stop: 12/30/24 22:59 Potassium Chloride (Potassium Chloride 10% 20 Meq/15 Ml Udc) 40 meq PO X1 ONE Stop: 11/30/24 21:46 Last Admin: 11/30/24 22:47 Dose: 40 meq Assessment & Plan Plan 83-year-old female with past medical history of hypertension, hyperlipidemia, rheumatoid arthritis on Xeljanz, A-fib on Eliquis presenting to the ED on 12/01 with episode of chest pain will be admitted for hypertensive urgency with mild troponin elevation likely secondary to NSTEMI type II along with workup for cardiac syncope. #Syncope #A-fib? Likely secondary to cardiac etiology versus orthostatic versus vagal, less likely to be seizure/stroke or TIA Patient notes as in HPI that she had complete loss of consciousness but denies having any palpitations CHADVASC 4?points Stroke risk was 4.8% per year On assessment, patient does not have any neurologic deficits and is answering questions appropriately and able to move all 4 extremities although she does have some pain on upper extremities Cervical spine CT shows no acute cervical fractures CT chest abdomen pelvis shows osseous structures that appear intact otherwise no concerning findings head CT is negative for any acute findings EKG shows atrial fibrillation but there appears to be P waves. Patient has extensive cardiac history and follows Dr. Dutta outpatient Plan: Telemetry monitoring Cardiology consulted, appreciate recommendations Follow-up on orthostatic vitals Continue patient's Eliquis 2.5 mg p.o. twice daily PT consult and patient is aware that she might need SNF #Hypertensive urgency #Hypertension #Elevated troponin Likely NSTEMI type II versus NSTEMI type I As noted above, patient presented with elevated blood pressure not necessarily meeting threshold of greater than 180/120 blood pressure Plan: Continue patient's aspirin 81 mg daily Cardiology consulted as above Troponin downtrending, continue to trend x 1 Restarted patient's home antihypertensives #CKD stage IIIb Patient has known history of CKD, baseline creatinine around 1.5?1.7 Plan: Avoid nephrotoxic agents Renally dose medications Monitor with morning labs Replete electrolytes as needed #Rheumatoid arthritis Patient on Xeljanz Plan: Restarted home medications, patient will bring medications from home not on formulary Health Maintenance: Lines: PIV Diet: Cardiac Bowel: Senna GI prophylaxis: Not needed DVT prophylaxis: On Eliquis 2.5 mg twice daily Dispo: Cardiac consultation, PT for SNF Code: Full Patient seen and assessed with attending Dr. Rolando Morrow DO PGY-2 Internal Medicine - GME Attending Provider Attestation/Addendum I reviewed labs, imaging, EKG, home medications and prior available records. Face to face evaluation was performed by me. I have personally examined the patient and discussed assessment and plan with the IM team. I reviewed the resident note and agree with the plan with exceptions as below. Ground-level fall Frequent falls Syncope Elevated troponin Hypokalemia CT head is negative for acute changes Differential diagnosis of the syncope includes orthostatic versus vasovagal versus cardiac. Less likely CVA Ordered echocardiogram IV fluids Consult cardiology PT evaluation Trend troponin
[2024-11-30 23:09] VITALS: BP 132/74; PULSE 86; RESP 16; TEMP 36.9; O2SAT 93
[2024-11-30] MEDS: RINGERS LACTATED 500 ML 500 ML 50 ML IV (23:11)
[2024-11-30] MEDS: Magnesium Sulfate 4 GM Ivpb 4 GM/50 ML BAG IV (23:11)
--- NOTE | 2024-11-30 23:47 | ECHO_ITS ---
Transthoracic Echo Report Ht (in): 70 Wt (lb): 203 Exam Location: Echo Lab Status: Inpatient Thermostat Maker: Nabila Ovalles Indications: Procedure Performed: BP: 132 / 72 HR: 65 Technical Quality: Technically difficult study MEASUREMENTS (Male / Female) Normal Values 2D ECHO LV Diastolic Diameter PLAX 2.6 cm 4.2 - 5.9 / 3.9 - 5.3 cm LV Systolic Diameter PLAX 2.3 cm IVS Diastolic Thickness 1.3 cm 0.6 - 1.0 / 0.6 - 0.9 cm LVPW Diastolic Thickness 1.1 cm 0.6 - 1.0 / 0.6 - 0.9 cm LV Relative Wall Thickness 0.9 LA Volume Index 44.3 cm?/m? 16 - 28 cm?/m? M-MODE Aortic Root Diameter MM 2.8 cm LA Systolic Diameter MM 4.2 cm LA Ao Ratio MM 1.5 AV Cusp Separation MM 2.0 cm DOPPLER AV Peak Velocity 96.1 cm/s AV Peak Gradient 3.7 mmHg AV Mean Gradient 2.0 mmHg AV Velocity Time Integral 21.6 cm LVOT Peak Velocity 65.0 cm/s LVOT Peak Gradient 1.7 mmHg LVOT Velocity Time Integral 13.3 cm MR Peak Velocity 257.0 cm/s MR Peak Gradient 26.4 mmHg TR Peak Velocity 213.3 cm/s TR Peak Gradient 18.2 mmHg PV Peak Velocity 85.5 cm/s PV Peak Gradient 2.9 mmHg FINDINGS Left Ventricle Normal left ventricular size. Mild LVH. Normal left ventricular diastolic filling pattern for age. The ejection fraction is visually estimated at 50-55%. Right Ventricle The right ventricular systolic function is moderately decreased. The right ventricular size is moderately increased. Left Atrium Moderately increased left atrial volume 44.3 mL/m?. Right Atrium The right atrium is normal by two-dimensional imaging, color flow and Doppler imaging with no structural abnormalities, no thrombus formation present. Atrial Septum The interatrial septum appears normal with no evidence of a shunt. Aorta The aorta is normal by two-dimensional, color flow and Doppler interrogation. Mitral Valve The mitral valve is normal by two-dimensional, color flow and Doppler interrogation. Trace mitral regurgitation. Aortic Valve The aortic valve is trileaflet and normal by two-dimensional, color flow and Doppler interrogation. There is no significant aortic valve regurgitation. Tricuspid Valve The tricuspid valve is normal by two-dimensional, color flow and Doppler interrogation. There is mild tricuspid valve regurgitation. Pulmonic Valve The pulmonic valve is not well visualized. There is no significant pulmonic valve regurgitation. Vessels Inferior vena cava not well visualized. Pericardium The pericardium is normal by two-dimensional imaging. There is no significant pericardial effusion. CONCLUSIONS Indication: R/O cardiac syncope Normal left ventricular size and function. Approximate ejection fraction is 50-55%. The RV systolic function is moderately decreased. The RV size is moderately increased. Moderately increased LA size Trace mitral and trace tricuspid regurgitation . Tawana Husain (Electronically Signed) Final Date: 02 December 2024 16:01
[2024-12-01] VITALS (13 sets, daily range): BP systolic 106–166; BP diastolic 62–99; PULSE 40–88; RESP 15–19; TEMP 35.6–36.3; O2SAT 92–95; BMI 28.8; BMI 11.0
[2024-12-01 03:30] LABS: Basophils # (Auto) 0.1 Thou/mm3 (0.0-0.2); Basophils % (Auto) 1 % (0-2.5); Eosinophils # (Auto) 0.2 Thou/mm3 (0.0-0.5); Eosinophils % (Auto) 4 % (0-10); Hematocrit 39.8 % (36.0-46.0); Hemoglobin 13.1 g/dL (12.0-16.0); Immature Granulocytes Auto 0.01 Thou/mm3 (0.00-0.00); Lymphocytes # (Auto) 0.6 Thou/mm3 (1.0-4.8); Lymphocytes % (Auto) 10 % (10-50); Mean Corpuscular HGB Conc 32.9 g/dl (31.0-37.0); Mean Corpuscular Hemoglobin 32.0 pg (25.0-35.0); Mean Corpuscular Volume 97 fL (80-100); Monocytes # (Auto) 0.6 Thou/mm3 (0.0-0.8); Monocytes % (Auto) 10 % (0-12); Neutrophils # (Auto) 4.3 Thou/mm3 (1.8-7.7); Neutrophils % (Auto) 76 % (37-80); Nucleated Red Blood Cell # 0.00 Thou/mm3 (0.00-0.00); Nucleated Red Blood Cell % 0 /100 WBC (0); Platelet Count 192 Thou/mm3 (140-440); RDW Standard Deviation 47.3 fL (36.4-46.3); Red Blood Count 4.09 Miln/mm3 (4.00-5.20); White Blood Count 5.7 Thou/mm3 (3.6-11.0)
[2024-12-01 04:06] LABS: Alanine Aminotransferase 9 U/L (10-49); Albumin, Serum 3.0 gm/dL (3.4-4.8); Albumin/Globulin Ratio 1.4 (1.2-2.2); Alkaline Phosphatase 89 U/L (46-116); Anion Gap 13 (7-16); Aspartate Amino Transferase 15 U/L (0-34); BUN/Creatinine Ratio 9 Ratio (12-20); Bilirubin,Total 0.9 mg/dL (0.3-1.2); Blood Urea Nitrogen 12 mg/dL (9-23); Calcium 9.2 mg/dL (8.3-10.6); Calcium (Corrected) 10.0 mg/dL (8.5-10.1); Carbon Dioxide 25.5 mMol/L (20.0-31.0); Cardiac Risk Estimate 3.6 RATIO (3.7-5.6); Chloride 96 mMol/L (98-107); Cholesterol 144 mg/dL (132-200); Creatinine (Component) 1.4 mg/dL (0.6-1.3); Estimated Creatinine Clearance 37.3 mL/min (>60); Globulin 2.1 gm/dL (2.3-3.5); Glucose 134 mg/dL (74-106); HDL Cholesterol 40 mg/dL (40-60); LDL Cholesterol,Calculated 86 mg/dL (0-130); Osmolality,Calculated 269 (275-295); Potassium 3.6 mMol/L (3.4-5.1); Sodium 134 mMol/L (136-145); Total Protein 5.1 gm/dL (5.7-8.2); Triglycerides 90 mg/dL (30-150); eGFR 37 See Note
[2024-12-01 04:38] LABS: Troponin I 0.107 ng/mL (0.0-0.045)
--- NOTE | 2024-12-01 07:59 | PD.IMCONS ---
HPI Data of Consult Requesting Physician: Cayetano Marshall MD Primary Care Provider: Aleksandr Noble MD Consult Narrative History of present illness: 83-year-old female with past medical history of hypertension, hyperlipidemia, rheumatoid arthritis on Xeljanz, A-fib on Eliquis Patient seen in the emergency room with an episode of chest pain EKG shows underlying atrial fibrillation with heart rate [address], [address]-T wave changes noted Troponins all 3 of them 0.1 Patient has chronic renal dysfunction initial creatinine was 1.7 Patient recently had a fall and currently on essentially wheelchair-bound Complains of sharp orthopnea and shortness of breath on exertion cc:: cc: Cayetano Marshall MD Meds Home Medications and Allergies Home Medications ?Medication ?Instructions ?Recorded ?Confirmed ?Type bumetanide 2 mg tablet 2 mg PO BID #0 tabs 09/08/13 12/01/24 History tofacitinib 5 mg tablet (Xeljanz) 1 tab PO BID ##60 09/08/13 12/01/24 History ergocalciferol (vitamin D2) 1,250 50,000 unit PO QWEEK 10/01/17 12/01/24 History mcg (50,000 unit) capsule (Vitamin D2) nifedipine 30 mg tablet,extended 30 mg PO BID 10/01/17 12/01/24 History release 24 hr pantoprazole 40 mg tablet,delayed 40 mg PO QAM 10/01/17 12/01/24 History release potassium chloride 20 mEq 20 meq PO BID 10/01/17 12/01/24 History tablet,extended release aspirin 81 mg chewable tablet 81 mg PO QDAY 09/19/19 12/01/24 History Held on 10/31/20. Instructions: Resume on 11/02/20. HOLD ASPRIN FOR TWO DAYS MAY RESUME ON Thursday11/02/20 montelukast 10 mg tablet 10 mg PO QPM 09/19/19 12/01/24 History (Singulair) Allergies Allergy/AdvReac Type Severity Reaction Status Date / Time influenza virus vaccine ts Allergy Severe Diarrhea Verified 11/30/24 18:47 [id number] (36 mos,up) (From Fluarix) adalimumab (From Humira) Allergy Intermediate Diarrhea Verified 11/30/24 18:47 bacitracin Allergy Verified 11/30/24 18:47 Exam Vital Signs Temp Pulse Resp BP Pulse Ox O2 Del Method 96.5 F L 69 18 149/90 H 93 L Room Air 12/01/24 05:46 12/01/24 05:46 12/01/24 05:46 12/01/24 05:46 12/01/24 05:46 12/01/24 05:46 Routine HEENT Exam Head: Present normocephalic and atraumatic Eye: Present EOMI and PERRL ENT: Present mucous membranes moist Routine Neck Exam Neck: Present supple and trachea midline Routine Respiratory Exam Respiratory: Present chest non-tender, lungs clear, normal breath sounds and no resp distress Routine Cardiovascular Exam Cardiovascular: Present RRR Routine Abdominal Exam Abdominal: Present soft and normoactive bowel sounds Routine Extremities Exam Extremities: Present full ROM Routine Skin Exam Skin: Present intact, dry and warm Routine Neurological Exam Neurological: Present alert, oriented X3 and CN II-XII intact Routine Psychiatric Exam Psychiatric: Present normal affect and normal thought process Results Labs 12/01/24 03:10 12/01/24 02:11 Labs: Short CBC 11/30/24 12/01/24 Range/Units 20:20 03:10 WBC 6.7 5.7 (3.6-11.0) Thou/mm3 Hgb 13.6 13.1 (12.0-16.0) g/dL Hct 41.9 39.8 (36.0-46.0) % Plt Count 198 D 192 (140-440) Thou/mm3 BMP 11/30/24 12/01/24 20:20 02:11 Sodium 141 134 L Potassium 3.2 L 3.6 Chloride 102 96 L Carbon Dioxide 29.3 25.5 BUN 21 12 Creatinine 1.7 H 1.4 H Glucose 127 H 134 H Calcium 10.0 9.2 Cardiac Enzymes 11/30/24 12/01/24 Range/Units 20:20 02:11 Total Creatine Kinase 39 (34-171) U/L Troponin I 0.100 H* 0.107 H* (0.0-0.045) ng/mL Liver Function 11/30/24 12/01/24 Range/Units 20:20 02:11 Total Bilirubin 1.2 0.9 (0.3-1.2) mg/dL Direct Bilirubin 0.5 H (0.0-0.3) mg/dL AST 20 15 (0-34) U/L ALT 12 9 L (10-49) U/L Alkaline Phosphatase 105 89 (46-116) U/L Albumin 3.7 D 3.0 L D (3.4-4.8) gm/dL Urine 11/30/24 Range/Units 21:14 Urine Color Yellow (Lt Yel-Yel) Urine Clarity Clear (Clear/Hazy) Urine pH 6.0 (5.0-7.0) Ur Specific [place] 1.025 (1.001-1.035) Urine Protein Trace (Neg - Trace) Urine Glucose (UA) Negative (Negative) Assessment and Plan Assessment and plan (1) Elevated troponin: Status: Acute (2) Hypertensive urgency: Status: Acute (3) Atrial fibrillation: Status: Acute (4) Syncope: Status: Acute (5) Chest pain: Status: Acute Additional Assessment & Plan Additional Plan: Agree with current treatment plan Patient has chronic renal dysfunction We will obtain the prior coronary intervention reports At this point doubt acute coronary syndrome patient all 3 troponins are more or less the same EKG does not show any acute ST-T wave changes, underlying rate controlled atrial fibrillation Patient will benefit from anticoagulation Hydrate the patient adequately to improve renal function Echocardiographic exam recommended to evaluate for wall motion abnormalities and LV function Patient's current blood pressure is 160/99 continue antihypertensive patient was on nifedipine at home ; currently metoprolol was given Recommend starting metoprolol 25 mg twice a day to better control the blood pressure
--- NOTE | 2024-12-01 08:32 | ESPR_ITS ---
<Statement entered by Jonny Ding MD - 12/12/24 17:55> I reviewed above note and agree with findings and plans. I have also personally examined the patient with medicine team and went over assessment and plan with medical team including spring internship and resident physician. Documentation for date of: 12/01/24 Overnight admission. Patient has a past medical history of Atrial Fibrillation on Nifedipine 30 mg PO BID who was admitted secondary to syncopal event, likely secondary to history of atrial fibrillation. Cardiology consulted, Dr. Dutta, patient started on Metoprolol tartrate 25 mg PO BID. Pending Orthostatic vitals. Pending Echo. PT evaluated patient, would benefit from SNF. Subjective Subjective Interval history: Overnight, telemetry noted 3-second pause on EKG. Patient seen and examined at bedside this AM with principal product manager Dr. Gabriel. Per Dr. Gabriel, patient has history of coronary artery disease status post stents and renal artery stenosis status post stent placement 10 years ago. Patient complained of intermittent chest pain at left lower chest/substernal area, no troponins are unremarkable and patient has history of GERD. Labs and vitals were reviewed. Patient was hypertensive at 160/99 creatinine 1.4, however this appears to be her baseline. Per cardiology, will start on metoprolol 25 twice daily for hypertension and rhythm control, will continue Eliquis. Pending orthostatic vitals. Pending PT consult. Review of systems otherwise negative except what is mentioned above. Exam Vital Signs Temp Pulse Resp BP Pulse Ox O2 Del Method 97.0 F 87 17 160/99 H 94 L Room Air 12/01/24 08:00 12/01/24 08:00 12/01/24 08:00 12/01/24 08:00 12/01/24 08:00 12/01/24 08:00 Narrative Exam Physical Exam General: Awake and in no acute distress. Conversational and non-toxic appearing. HEENT: Normocephalic, atraumatic, mucous membranes moist. Chronic surgical scar on right eyelid. Heart: Irregular rate and rhythm, normal S1 and S2, no murmurs appreciated. No chest tenderness. Lungs: Clear to auscultation with no wheezing or crackles. Abdomen: Soft, nondistended, nontender, positive bowel sounds. No guarding or rebound tenderness. Neurologic: Alert and oriented x3, no gross neurological deficit, and patient able to move all 4 extremities. Extremities: 1+ pitting lower extremity edema bilaterally. Skin: No rash or ecchymoses. Surgical scar on right shoulder. Objective Labs 12/01/24 03:10 12/01/24 02:11 Labs: Laboratory Results - last 24 hr 11/30/24 11/30/24 12/01/24 20:20 21:14 02:11 WBC 6.7 RBC 4.33 Hgb 13.6 Hct 41.9 MCV 97 MCH 31.4 MCHC 32.5 RDW Std Deviation 47.1 H Plt Count 198 D Neut % (Auto) 80 Lymph % (Auto) 7 L [place] % (Auto) 10 Eos % (Auto) 2 Baso % (Auto) 1 Neut # (Auto) 5.4 Lymph # (Auto) 0.5 L [place] # (Auto) 0.7 Eos # (Auto) 0.2 Baso # (Auto) 0.1 Immature Gran # (Auto) 0.02 H Absolute Nucleated RBC 0.00 Immature Gran % 0 Nucleated RBC % 0 ESR 17 PT 11.7 INR 1.1 APTT 23.2 Sodium 141 134 L Potassium 3.2 L 3.6 Chloride 102 96 L Carbon Dioxide 29.3 25.5 Anion Gap 10 13 BUN 21 12 Creatinine 1.7 H 1.4 H Estim Creat Clear Calc 30.8 L 37.3 L eGFR 30 L 37 L BUN/Creatinine Ratio 12 9 L Glucose 127 H 134 H Calculated Osmolality 286 269 L Lactic Acid 1.4 Calcium 10.0 9.2 Corrected Calcium 10.2 H 10.0 Magnesium 1.7 Total Bilirubin 1.2 0.9 Direct Bilirubin 0.5 H AST 20 15 ALT 12 9 L Alkaline Phosphatase 105 89 Total Creatine Kinase 39 Troponin I 0.100 H* 0.107 H* C-Reactive Prot, Quant 0.9 B-Natriuretic Peptide 48 Total Protein 6.3 5.1 L Albumin 3.7 D 3.0 L D Globulin 2.6 2.1 L Albumin/Globulin Ratio 1.4 1.4 Triglycerides 90 Cholesterol 144 LDL Cholesterol, Calc 86 HDL Cholesterol 40 Cholesterol/HDL Ratio 3.6 L Beta-Hydroxybutyrate/Acetoacetate 0.1 Procalcitonin 0.11 TSH 1.86 Free T4 1.57 Ur Collection Type Clean Catch Urine Color Yellow Urine Clarity Clear Urine pH 6.0 Ur Specific [place] 1.025 Urine Protein Trace Urine Glucose (UA) Negative Urine Ketones Negative Urine Blood 1+ A Urine Nitrite Negative Urine Bilirubin Negative Urine Urobilinogen (Auto) 2.0 Ur Leukocyte Esterase Negative Urine RBC 39 H Urine WBC 0 Ur Squamous Epith Cells 2 Urine Bacteria Rare Ur Culture Indicated? Not Indicated 12/01/24 03:10 WBC 5.7 RBC 4.09 Hgb 13.1 Hct 39.8 MCV 97 MCH 32.0 MCHC 32.9 RDW Std Deviation 47.3 H Plt Count 192 Neut % (Auto) 76 Lymph % (Auto) 10 [place] % (Auto) 10 Eos % (Auto) 4 Baso % (Auto) 1 Neut # (Auto) 4.3 Lymph # (Auto) 0.6 L [place] # (Auto) 0.6 Eos # (Auto) 0.2 Baso # (Auto) 0.1 Immature Gran # (Auto) 0.01 H Absolute Nucleated RBC 0.00 Immature Gran % 0 Nucleated RBC % 0 ESR PT INR APTT Sodium Potassium Chloride Carbon Dioxide Anion Gap BUN Creatinine Estim Creat Clear Calc eGFR BUN/Creatinine Ratio Glucose Calculated Osmolality Lactic Acid Calcium Corrected Calcium Magnesium Total Bilirubin Direct Bilirubin AST ALT Alkaline Phosphatase Total Creatine Kinase Troponin I C-Reactive Prot, Quant B-Natriuretic Peptide Total Protein Albumin Globulin Albumin/Globulin Ratio Triglycerides Cholesterol LDL Cholesterol, Calc HDL Cholesterol Cholesterol/HDL Ratio Beta-Hydroxybutyrate/Acetoacetate Procalcitonin TSH Free T4 Ur Collection Type Urine Color Urine Clarity Urine pH Ur Specific [place] Urine Protein Urine Glucose (UA) Urine Ketones Urine Blood Urine Nitrite Urine Bilirubin Urine Urobilinogen (Auto) Ur Leukocyte Esterase Urine RBC Urine WBC Ur Squamous Epith Cells Urine Bacteria Ur Culture Indicated? Quality Measures Quality Measures none Advance care planning discussed with:: patient Assessment & Plan Assessment Current Active Medications: Generic Name Dose Route Start Last Admin Trade Name Freq PRN Reason Stop Dose Admin Acetaminophen 650 mg 11/30/24 22:45 Acetaminophen 325 Mg Tablet PO 12/30/24 22:44 Q6H PRN PAIN SCALE 1-3 (mild Apixaban 2.5 mg 12/01/24 09:00 Apixaban 2.5 Mg Tablet PO 12/31/24 08:59 BID DIANA Aspirin 81 mg 12/01/24 09:00 Aspirin Ec 81 Mg Tabec PO 12/31/24 08:59 QDAY DIANA Xeljanz Xr ( 0 ea 12/01/24 09:00 Tofacitinib) 11 Mg PO 12/31/24 08:59 Tablets DAILY DIANA Lactated Ringer's 500 mls @ 50 mls/hr 11/30/24 22:52 11/30/24 23:11 Lactated Ringers IV 12/01/24 08:51 50 mls/hr .Q10H ONE Administration Potassium Chloride 10 meq in 100 mls @ 100 mls/hr 12/01/24 07:44 Kcl Ivpb IV 12/01/24 09:43 Q1H DIANA Nifedipine 30 mg 12/01/24 09:00 Nifedipine Xl 30 Mg Tabcr PO 12/31/24 08:59 BID DIANA Non-Formulary Medication 1 tab 12/01/24 09:00 Xeljanz PO 12/31/24 08:59 BID DIANA Ondansetron HCl 4 mg 11/30/24 22:45 Ondansetron Inj 2 Mg/Ml Inj 2 Ml IVP 12/30/24 22:44 Q6H PRN NAUSEA OR VOMITING Protocol Sennosides 1 tab 12/01/24 09:00 Senna Tablet PO 12/31/24 08:59 QDAY DIANA Protocol Plan Patient is an 83-year-old female with past medical history of hypertension, hyperlipidemia, rheumatoid arthritis on Xeljanz, A-fib on Eliquis, CAD status post stents, and renal artery stenosis status post stent placement presenting to the ED on 12/01 with episode of chest pain, will be admitted for hypertensive urgency with mild troponin elevation likely secondary to NSTEMI type II along with workup for cardiac syncope. #Syncope, cardiac versus orthostatic versus vagal #History of A-fib Syncope likely secondary to cardiac versus orthostatic versus vagal, less likely to be seizure/stroke or TIA. Syncopal episode yesterday, had fall. Endorses complete LOC but denies head trauma or palpitations. CT cervical spine negative for acute cervical fractures. CT head negative for acute findings. CT chest abdomen pelvis shows osseous structures that appear intact otherwise no concerning findings. EKG shows atrial fibrillation but there appears to be P waves. Patient has extensive cardiac history, follows Dr. Dutta outpatient. CHADVASC 5 (age, female, HTN hx, possible CAD) Stroke risk 4.8% per year Plan: - Start on metoprolol tart 25 mg BID - Continue patient's Eliquis 2.5 mg p.o. twice daily ?Pending orthostatic vitals ?Pending PT consult, patient is aware that she might need SNF ?Telemetry monitoring - Cardiology Dr. Dutta consulted, appreciate recommendations #Hypertensive urgency #Hypertension As noted above, patient presented with elevated blood pressure not necessarily meeting threshold of greater than 180/120 blood pressure Plan: ?Start metoprolol as above - Resume home dose nifedipine #CKD stage IIIb Has longstanding history of CKD per Dr. Gabriel, baseline creatinine around 1.5?1.7. Status post 1 L LR x 1. Plan: ?Avoid nephrotoxic agents - Renally dose medications ?Monitor with morning labs ?Replete electrolytes as needed ? IV hydration as needed, will encourage oral hydration #Elevated troponin - resolved Likely NSTEMI type II. Chest pain intermittent, sharp, no radiation to arm or jaw. Already downtrended. #History of CAD? #Status post stents Per Dr. Gabriel principal product manager who placed stents years ago, likely due to CAD. Unknown if had ND. ASCVD cannot be calculated as pt is over 75. Not on statins. Lipid panel 12/01 shows triglycerides 90, total cholesterol 144, LDL 86, HDL 40. ? Consider starting on statin #History of GERD Takes Protonix 40 mg every morning at home. ? Continue home dose Protonix #Rheumatoid arthritis Patient on Xeljanz Plan: ?Restart home medications, patient will bring medications from home not on formulary Health Maintenance: Lines: PIV Diet: Cardiac Bowel: Senna GI prophylaxis: Protonix, Zofran for nausea DVT prophylaxis: Eliquis Dispo: Cardiac consultation, PT for SNF Code: Full Patient plan of care was discussed with the resident, Dr. Hughes, and attending physician, Dr. Ding. Tricia Abarca, PGY-1 - The patient's plan was discussed with attending Dr. Toña Hughes MD PGY2 Internal Medicine
[2024-12-01] MEDS: POTASSIUM CHL 10 mEq IVPB 10 MEQ/100 ML BAG 75 MEQ IV (08:35)
[2024-12-01] MEDS: ASPIRIN EC 81 MG TABEC PO (08:36)
[2024-12-01] MEDS: NIFEdipine XL 30 MG TABCR PO (08:36)
[2024-12-01] MEDS: METOPROLOL TARTRATE 25 MG TABLET PO (10:04)
[2024-12-01] MEDS: APIXABAN 2.5 MG TABLET PO ×2 (10:04→20:37)
[2024-12-01] MEDS: POTASSIUM CHL 10 mEq IVPB 10 MEQ/100 ML BAG 50 MEQ IV (10:05)
[2024-12-01] MEDS: XELJANZ 11 MG PO (10:05)
--- NOTE | 2024-12-01 10:36 | PC.SS ---
Initial assessment: This patient is an 83-year old female admitted for syncope and HTN Emergency. Patient was able to confirm demographic information. Patient assigned her brother, Hemanth Fishman as her alternate medical decision maker . Patient informs that she lives with her grandson Ever. Patient informs she utilizes a home walker to assist with ambulation and a home wheelchair to assist with transferring. Patient informs she has has a bedside commode and metal ramp to assist her with her home care. Patient informs she sees provider Yessi Noble for primary care and Chu a provider at her office. Patient denies being diabetic or on dialysis. Patient indicates she will return home when stable for discharge and has family who will transport her home. No needs identified by the patient at this time. D/c plan: Home Next of kin: BrotherHemanth
[2024-12-01] MEDS: PANTOPRAZOLE 40 MG TABLET PO (11:15)
--- NOTE | 2024-12-01 16:50 | PC.SS ---
SS update: per Naomi with PT, SNF was recommended for the patient.
--- NOTE | 2024-12-01 18:08 | EKG_ITS ---
[facility] Test Date: 2024-12-01 Pat Name: WILDER FOX Department: Room: 54A Gender: Female History Tutor: ENZO : 1940 Requested By: Angelique Hughes Order Number: [id number] Reading MD: Angelique Hughes Measurements Intervals [place] Rate: 73 P: TN: QRS: 7 QRSD: 84 T: 20 QT: 401 QTc: 442 Interpretive Statements ATRIAL FIBRILLATION MINIMAL ST DEPRESSION ABNORMAL RHYTHM ECG Compared to ECG 11/30/2024 21:09:11 ST (T wave) deviation now present Myocardial infarct finding no longer present T-wave abnormality no longer present Possible ischemia no longer present /store/S0/[id number].pdf
[2024-12-02] VITALS (10 sets, daily range): BP systolic 93–145; BP diastolic 61–98; PULSE 69–105; RESP 18–20; TEMP 36.2–36.3; O2SAT 92–95; BMI 30.2; BMI 12.0
[2024-12-02 06:29] LABS: Basophils # (Auto) 0.0 Thou/mm3 (0.0-0.2); Basophils % (Auto) 0 % (0-2.5); Eosinophils # (Auto) 0.2 Thou/mm3 (0.0-0.5); Eosinophils % (Auto) 2 % (0-10); Hematocrit 40.9 % (36.0-46.0); Hemoglobin 14.0 g/dL (12.0-16.0); Immature Granulocytes Auto 0.04 Thou/mm3 (0.00-0.00); Lymphocytes # (Auto) 0.8 Thou/mm3 (1.0-4.8); Lymphocytes % (Auto) 7 % (10-50); Mean Corpuscular HGB Conc 34.2 g/dl (31.0-37.0); Mean Corpuscular Hemoglobin 31.7 pg (25.0-35.0); Mean Corpuscular Volume 93 fL (80-100); Monocytes # (Auto) 0.8 Thou/mm3 (0.0-0.8); Monocytes % (Auto) 8 % (0-12); Neutrophils # (Auto) 8.5 Thou/mm3 (1.8-7.7); Neutrophils % (Auto) 83 % (37-80); Nucleated Red Blood Cell # 0.00 Thou/mm3 (0.00-0.00); Nucleated Red Blood Cell % 0 /100 WBC (0); Platelet Count 210 Thou/mm3 (140-440); RDW Standard Deviation 44.7 fL (36.4-46.3); Red Blood Count 4.41 Miln/mm3 (4.00-5.20); White Blood Count 10.3 Thou/mm3 (3.6-11.0)
[2024-12-02 07:10] LABS: Alanine Aminotransferase 14 U/L (10-49); Albumin, Serum 3.8 gm/dL (3.4-4.8); Albumin/Globulin Ratio 1.8 (1.2-2.2); Alkaline Phosphatase 108 U/L (46-116); Anion Gap 9 (7-16); Aspartate Amino Transferase 26 U/L (0-34); BUN/Creatinine Ratio 13 Ratio (12-20); Bilirubin,Total 0.9 mg/dL (0.3-1.2); Blood Urea Nitrogen 18 mg/dL (9-23); Calcium 10.3 mg/dL (8.3-10.6); Calcium (Corrected) 10.5 mg/dL (8.5-10.1); Carbon Dioxide 25.8 mMol/L (20.0-31.0); Chloride 102 mMol/L (98-107); Creatinine (Component) 1.4 mg/dL (0.6-1.3); Estimated Creatinine Clearance 38.1 mL/min (>60); Globulin 2.1 gm/dL (2.3-3.5); Glucose 94 mg/dL (74-106); Magnesium 2.5 mg/dL (1.6-2.6); Osmolality,Calculated 275 (275-295); Phosphorous 2.6 mg/dL (2.4-5.1); Potassium 4.4 mMol/L (3.4-5.1); Sodium 137 mMol/L (136-145); Total Protein 5.9 gm/dL (5.7-8.2); eGFR 37 See Note
--- NOTE | 2024-12-02 08:44 | PC.SS ---
Follow up note: Pending ECHO review.
[2024-12-02] MEDS: XELJANZ 11 MG PO (09:14)
[2024-12-02] MEDS: ASPIRIN EC 81 MG TABEC PO (09:15)
[2024-12-02] MEDS: PANTOPRAZOLE 40 MG TABLET PO (09:15)
[2024-12-02] MEDS: APIXABAN 2.5 MG TABLET PO ×2 (09:15→20:52)
--- NOTE | 2024-12-02 13:20 | ESPR_ITS ---
<Statement entered by Jonny Ding MD - 12/13/24 07:44> I reviewed above note and agree with findings and plans. I have also personally examined the patient with medicine team and went over assessment and plan with medical team including international flight attendant and resident physician. Documentation for date of: 12/02/24 Patient continues to wax and wane, family at bedside concern as this is not patient's baseline. Neurology consult placed, pending MRI and EEG given syncope event prior to admission. Pending SNF and PT. Subjective Subjective Interval history: Overnight, nifedipine was held due to low systolic pressure. Patient seen and examined at bedside this AM. Denies chest pain and shortness of breath. Continues to endorse weakness, cooperative with physical therapy. Brother was present and informed. Labs and vitals were reviewed. Blood pressure was 97/63 this morning, will hold nifedipine and metoprolol this morning. Continues to be in atrial fibrillation but rate below 100. Troponin downtrended yesterday. Pending official echo read. Creatinine remains at baseline. Syncope likely cardiac versus neurologic. Patient complaining of left arm and left leg weakness since fall, as well as overall weakness. Patient is on Eliquis however has history of CAD, possible atherosclerotic stroke. No known seizure history. Only single 3-second pause noted on 12/01, no new pauses or PVCs observed. Will consult neurology for workup for possible seizure, TIA, or stroke. Per physical therapy, recommended discharge to SNF. Patient was agreeable, wants to improve on her strength. Prefers to stay in [place] or [place]. Review of systems otherwise negative except what is mentioned above. Exam Vital Signs Temp Pulse Resp BP Pulse Ox O2 Del Method 97.3 F 71 18 128/73 93 L Room Air 12/02/24 12:12/02/24 12:12/02/24 12:12/02/24 12:12/02/24 12:12/02/24 12:00 Narrative Exam Physical Exam General: Awake and in no acute distress. Conversational and non-toxic appearing. HEENT: Normocephalic, atraumatic, mucous membranes moist. Surgical scar on right eyelid. Heart: Irregular rate and rhythm, normal S1 and S2, no murmurs appreciated. No chest tenderness. Lungs: Clear to auscultation with no wheezing or crackles. Abdomen: Soft, nondistended, nontender, positive bowel sounds. No guarding or rebound tenderness. Neurologic: Alert and oriented x3, no gross neurological deficit, and patient able to move all 4 extremities, 5/5 strength in all extremities. Extremities: Mild pitting lower extremity edema bilaterally. Skin: No rash or ecchymoses. Surgical scar on right shoulder. Objective Labs 12/05/24 04:29 12/05/24 04:29 Labs: Laboratory Results - last 24 hr 12/02/24 04:40 WBC 10.3 D RBC 4.41 Hgb 14.0 Hct 40.9 MCV 93 MCH 31.7 MCHC 34.2 RDW Std Deviation 44.7 Plt Count 210 Neut % (Auto) 83 H Lymph % (Auto) 7 L [place] % (Auto) 8 Eos % (Auto) 2 Baso % (Auto) 0 Neut # (Auto) 8.5 H Lymph # (Auto) 0.8 L [place] # (Auto) 0.8 Eos # (Auto) 0.2 Baso # (Auto) 0.0 Immature Gran # (Auto) 0.04 H Absolute Nucleated RBC 0.00 Immature Gran % 0 Nucleated RBC % 0 Sodium 137 Potassium 4.4 D Chloride 102 Carbon Dioxide 25.8 Anion Gap 9 BUN 18 Creatinine 1.4 H Estim Creat Clear Calc 38.1 L eGFR 37 L BUN/Creatinine Ratio 13 Glucose 94 Calculated Osmolality 275 Calcium 10.3 Corrected Calcium 10.5 H Phosphorus 2.6 Magnesium 2.5 Total Bilirubin 0.9 AST 26 ALT 14 Alkaline Phosphatase 108 D Total Protein 5.9 Albumin 3.8 D Globulin 2.1 L Albumin/Globulin Ratio 1.8 Quality Measures Quality Measures none Advance care planning discussed with:: patient Assessment & Plan Assessment Current Active Medications: Generic Name Dose Route Start Last Admin Trade Name Freq PRN Reason Stop Dose Admin Acetaminophen 650 mg 11/30/24 22:45 Acetaminophen 325 Mg Tablet PO 12/30/24 22:44 Q6H PRN PAIN SCALE 1-3 (mild Apixaban 2.5 mg 12/01/24 09:00 12/02/24 09:15 Apixaban 2.5 Mg Tablet PO 12/31/24 08:59 2.5 mg BID DIANA Administration Aspirin 81 mg 12/01/24 09:00 12/02/24 09:15 Aspirin Ec 81 Mg Tabec PO 12/31/24 08:59 81 mg QDAY DIANA Administration Xeljanz Xr ( 0 ea 12/01/24 09:00 12/02/24 09:14 Tofacitinib) 11 Mg PO 12/31/24 08:59 1 tablet Tablets DAILY DIANA Administration Metoprolol Tartrate 25 mg 12/01/24 09:30 12/02/24 09:17 Metoprolol Tartrate 25 Mg Tablet PO 12/31/24 09:29 Not Given BID DIANA Nifedipine 30 mg 12/02/24 09:00 12/02/24 09:18 Nifedipine Xl 30 Mg Tabcr PO 01/01/25 08:59 Not Given QDAY DIANA Ondansetron HCl 4 mg 11/30/24 22:45 Ondansetron Inj 2 Mg/Ml Inj 2 Ml IVP 12/30/24 22:44 Q6H PRN NAUSEA OR VOMITING Protocol Pantoprazole Sodium 40 mg 12/01/24 10:30 12/02/24 09:15 Pantoprazole 40 Mg Tablet PO 12/31/24 10:29 40 mg QDAY DIANA Administration Sennosides 1 tab 12/01/24 09:00 12/02/24 09:15 Senna Tablet PO 12/31/24 08:59 1 tab QDAY DIANA Administration Protocol Plan Patient is an 83-year-old female with past medical history of hypertension, hyperlipidemia, rheumatoid arthritis on Xeljanz, A-fib on Eliquis, CAD status post stents, and renal artery stenosis status post stent placement presenting to the ED on 12/01 with episode of chest pain, will be admitted for hypertensive urgency with mild troponin elevation likely secondary to NSTEMI type II along with workup for syncope. #Syncope, cardiac versus neurogenic #Hx of multiple falls #Left shoulder weakness Syncope likely secondary to cardiac (afib) versus neurogenic (possible TIA/stroke or seizure). Patient reports multiple sudden syncopal episodes over the past 2 years. Denies prodrome or lightheadedness. Endorses complete LOC but denies head trauma. Since last fall on 11/30, patient endorses left arm and left leg weakness. CT cervical spine negative for acute cervical fractures. CT head negative for acute findings. CT chest abdomen pelvis shows osseous structures that appear intact otherwise no concerning findings. EKG shows atrial fibrillation but there appears to be P waves. Plan: - Consider neurological work up for seizure or stroke - Ordered MRI and EEG - Consult neurology Dr. Bhatia, appreciate recommendations - Ordered left upper arm, left lower arm, and left hip XR - PT following, recommended SNF, patient agreeable to placement #History of A-fib Presented with afib with RVR. Patient has history of A-fib, on Eliquis. Has extensive cardiac history, follows Dr. Dutta outpatient. CHADVASC 5 (age, female, HTN hx, possible CAD) Stroke risk 4.8% per year Plan: ?Continue metoprolol tartrate 25 mg twice daily, hold if systolic less than 100 or heart rate less than 65 - Continue Eliquis 2.5 mg p.o. twice daily ?Pending orthostatic vitals - Pending echo ?Telemetry monitoring - Cardiology Dr. Dutta consulted, appreciate recommendations #Hypotension #Hypertensive urgency -resolved #Hx of Hypertension Blood pressure on admission. Patient has history of hypertension, takes nifedipine 30 mg daily at home. Plan: ?Continue metoprolol as above - Continue home dose nifedipine, hold if systolic less than 100 - Started hydralazine 10 mg q6hr prn if systolic >180 or DBP >110 #CKD stage IIIb Has longstanding history of CKD per Dr. Gabriel, baseline creatinine around 1.5?1.7. Status post 1 L LR x 1. Plan: ?Avoid nephrotoxic agents - Renally dose medications ?Monitor with morning labs ?Replete electrolytes as needed ? IV hydration as needed, will encourage oral hydration #Elevated troponin - resolved Likely NSTEMI type II. Chest pain intermittent, sharp, no radiation to arm or jaw. Already downtrended. #History of CAD? #Status post stents Per Dr. Gabriel student accounts manager who placed stents years ago, likely due to CAD. Unknown if had AR. ASCVD cannot be calculated as pt is over 75. Not on statins. Lipid panel 12/01 shows triglycerides 90, total cholesterol 144, LDL 86, HDL 40. ? Consider starting on statin #History of GERD Takes Protonix 40 mg every morning at home. ? Continue home dose Protonix #Rheumatoid arthritis Patient on Xeljanz Plan: ?Restart home medications, patient will bring medications from home not on formulary Health Maintenance: Lines: PIV Diet: Cardiac Bowel: Senna GI prophylaxis: Protonix, Zofran for nausea DVT prophylaxis: Eliquis Dispo: Cardiac consultation, PT for SNF Code: Full Patient plan of care was discussed with the resident, Dr. Hughes, and attending physician, Dr. Ding. Tricia Abarca, PGY-1 - The patient's plan was discussed with attending Dr. Toña Hughes MD PGY2 Internal Medicine
[2024-12-02] MEDS: METOPROLOL TARTRATE 25 MG TABLET PO (20:52)
--- NOTE | 2024-12-02 22:02 | ESCONSULT_ITS ---
HPI Data of Consult Requesting Physician: Jonny Ding MD Admitting Provider: Cayetano Marshall MD Attending Provider: Jonny Ding MD Primary Care Provider: Aleksandr Noble MD Consult Narrative History of present illness: Ms. Fishman is an 83-year-old woman with past medical history of hypertension, hyperlipidemia, rheumatoid arthritis, A-fib on Eliquis who presented to the ED on 11/30 with substernal chest pain that radiated to the left shoulder, accompanied by shortness of breath. Patient admitted for hypertensive urgency with mild troponin elevation likely secondary to NSTEMI type II, cardiac syncope workup. Neurology consulted for multiple falls, generalized weakness. Patient lives at home with grandson. Per chart review, patient has been experiencing multiple episodes of syncope and falls with head strike. Brother states that patient had a fall on 11/23 and has been largely wheelchair-bound ever since. She previously was able to ambulate with a walker. Patient denies palpitations, dizziness before falls. Patient has orthopnea and sleeps on a recliner, has intermittent lower extremity edema. Denies smoking hx, alcohol use, recreational drug use. In the ED, patient presented hypertensive urgency blood pressure 173/92, heart rate 94, respiratory rate 19, temperature 97.9 and saturating [address] head without contrast negative for acute hemorrhage. Patient evaluated at bedside. Denies headache, chest pain, shortness of breath, acute vision loss, paresthesias, abdominal pain. She reports generalized weakness, though has been working with PT and was able to sit up and stand with support. Patient was able to hold full conversation and made jokes. She had a robust memory of who visited her in the hospital and when, where she lives, home activities, family relations. Niece and nephew at bedside, reports that patient's ambulation has decreased over the past 1 to 2 years with a noticeable decline 6 months ago. They note that patient lives a fairly inactive lifestyle and prefers to stay in bed with little ambulation. Patient denies depressed mood or apathy. cc:: cc: Jonny Ding MD Review of Systems Review of Systems Narrative Review of Systems: 14 point ROS negative other than HPI Exam Vital Signs Temp Pulse Resp BP Pulse Ox O2 Del Method 97.1 F 87 19 132/83 H 94 L Room Air 12/02/24 20:00 12/02/24 20:52 12/02/24 20:00 12/02/24 20:52 12/02/24 20:00 12/02/24 20:00 Narrative Exam General: No acute distress, well nourished Eye: PERRL, EOMI, normal conjunctiva, no scleral icterus HENT: Normocephalic, atraumatic, hearing intact to conversation at normal volume, moist oral mucosa Neck: Supple, non-tender, no JVD, no lymphadenopathy Lungs: Non-labored respirations, symmetric chest rise Heart: Peripheral pulses intact bilaterally Abdomen: Soft, non-tender, non-distended Musculoskeletal: Normal range of motion and strength Skin: Skin is warm, dry, no rashes or lesions. Psychiatric: Cooperative, appropriate mood and affect Neurologic: Mental status: Orientation: Oriented to person, place, time, and situation Communication: Patient is cooperative and can follow simple instructions Language: Speech fluent, normal rate and volume, comprehension intact Cranial nerves: CN II: Visual gann intact CN III: Pupils equal, round, and reactive to light CN III, IV, : No gaze deviation, no nystagmus Horizontal pursuit: intact Vertical pursuit: intact Ptosis: none CN V: Facial sensation to light touch intact bilaterally at the forehead, cheeks, and jaw line CN VII: Face symmetric, no facial droop appreciated CN VIII: Able to hear and respond to conversation at normal volume, intact to finger rub CN IX, X: Palate elevation symmetric, uvula midline CN XI: Head turn and shoulder shrug strong, symmetric bilaterally CN XII: Normal tongue protrusion without deviation, no fasciculations Motor: Normal bulk and tone No atrophy No abnormal movements or fasciculations Patient was able to stand and walk 1-2 steps with walker and extra support, though she felt unstable and returned to sitting in bed. Muscle strength: Shoulder abduction: R 5/5 L 5/5 Elbow flexion: R 5/5 L 5/5 Elbow extension: R 5/5 L 5/5 Hip flexion: R 5/5 L 5/5 Hip extension: R 5/5 L 5/5 Knee flexion: R 5/5 L 5/5 Knee extension: R 5/5 L 5/5 Sensory: RUE: Light touch intact LUE: Light touch intact RLE: Light touch intact LLE: Light touch intact Reflexes: Biceps (C5-6): R 2+ L 2+ Brachioradialis (C5-6): R 2+ L 2+ Triceps (C7-8): R 2+ L 2+ Patellae (L3-4): R 2+ L 2+ Achilles (S1-2):R 2+ L 2+ Cerebellum: RUE: No dysmetria (finger to nose) LUE: No dysmetria (finger to nose) Results Labs 12/03/24 04:23 12/03/24 04:23 Labs: Short CBC 12/02/24 Range/Units 04:40 WBC 10.3 D (3.6-11.0) Thou/mm3 Hgb 14.0 (12.0-16.0) g/dL Hct 40.9 (36.0-46.0) % Plt Count 210 (140-440) Thou/mm3 BMP 12/02/24 04:40 Sodium 137 Potassium 4.4 D Chloride 102 Carbon Dioxide 25.8 BUN 18 Creatinine 1.4 H Glucose 94 Calcium 10.3 Liver Function 12/02/24 Range/Units 04:40 Total Bilirubin 0.9 (0.3-1.2) mg/dL AST 26 (0-34) U/L ALT 14 (10-49) U/L Alkaline Phosphatase 108 D (46-116) U/L Albumin 3.8 D (3.4-4.8) gm/dL Quality Measures Quality Measures none Advance care planning discussed with:: patient Medications Home Medications and Allergies Home Medications ?Medication ?Instructions ?Recorded ?Confirmed ?Type bumetanide 2 mg tablet 2 mg PO BID #0 tabs 09/08/13 12/01/24 History tofacitinib 5 mg tablet (Xeljanz) 1 tab PO BID ##60 12/01/24 History ergocalciferol (vitamin D2) 1,250 50,000 unit PO QWEEK 10/01/17 12/01/24 History mcg (50,000 unit) capsule (Vitamin D2) pantoprazole 40 mg tablet,delayed 40 mg PO QAM 8 12/01/24 History release potassium chloride 20 mEq 20 meq PO BID 10/01/1712/01 History tablet,extended release aspirin 81 mg chewable tablet 81 mg PO QDAY 09/19/19 0 12/01/24 History montelukast 10 mg tablet 10 mg PO QPM 09/19/19 History (Singulair) Allergies Allergy/AdvReac Type Severity Reaction Status Date / Time influenza virus vaccine ts Allergy Severe Diarrhea Verified 11/30/24 18:47 [id number] (36 mos,up) (From Fluarix) adalimumab (From Humira) Allergy Intermediate Diarrhea Verified 11/30/24 18:47 Egg Derived Allergy Intermediate HIVE Verified 12/03/24 10:23 bacitracin Allergy Verified 11/30/24 18:47 Visit Medications Acetaminophen (Acetaminophen 325 Mg Tablet) 650 mg PO Q6H PRN PRN Reason: PAIN SCALE 1-3 (mild Stop: 12/30/24 22:44 Apixaban (Apixaban 2.5 Mg Tablet) 2.5 mg PO BID [facility] Stop: 12/31/24 08:59 Last Admin: 12/02/24 20:52 Dose: 2.5 mg Aspirin (Aspirin Ec 81 Mg Tabec) 81 mg PO QDAY [facility] Stop: 12/31/24 08:59 Last Admin: 12/02/24 09:15 Dose: 81 mg Xeljanz Xr ( Tofacitinib) 11 Mg Tablets 0 ea PO DAILY [facility] Stop: 12/31/24 08:59 Last Admin: 12/02/24 09:14 Dose: 1 tablet Hydralazine HCl (Hydralazine Inj 20 Mg/Ml Vial) 10 mg IVP Q6HR PRN PRN Reason: hypertension Stop: 01/01/25 17:28 Metoprolol Tartrate (Metoprolol Tartrate 25 Mg Tablet) 25 mg PO BID [facility] Stop: 12/31/24 09:29 Last Admin: 12/02/24 20:52 Dose: 25 mg Nifedipine (Nifedipine Xl 30 Mg Tabcr) 30 mg PO QDAY [facility] Stop: 01/01/25 08:59 Ondansetron HCl (Ondansetron Inj 2 Mg/Ml Inj 2 Ml) 4 mg IVP Q6H PRN; Protocol PRN Reason: NAUSEA OR VOMITING Stop: 12/30/24 22:44 Pantoprazole Sodium (Pantoprazole 40 Mg Tablet) 40 mg PO QDAY [facility] Stop: 12/31/24 10:29 Last Admin: 12/02/24 09:15 Dose: 40 mg Sennosides (Senna Tablet) 1 tab PO QDAY [facility]; Protocol Stop: 12/31/24 08:59 Last Admin: 12/02/24 09:15 Dose: 1 tab Discontinued Medications Aspirin (Aspirin 81 Mg Chew) 324 mg PO X1 ONE Stop: 11/30/24 19:44 Last Admin: 11/30/24 21:03 Dose: 324 mg Lactated Ringer's (Lactated Ringers) 500 mls @ 50 mls/hr IV .Q10H ONE Stop: 12/01/24 08:51 Last Admin: 11/30/24 23:11 Dose: 50 mls/hr Magnesium Sulfate (Magnesium Sulfate Ivpb) 4 gm in 50 mls @ 12.5 mls/hr IV X1 ONE Stop: 12/01/24 02:51 Last Admin: 11/30/24 23:11 Dose: 12.5 mls/hr Potassium Chloride (Kcl Ivpb) 10 meq in 100 mls @ 100 mls/hr IV Q1H [facility] Stop: 12/01/24 09:43 Last Admin: 12/01/24 10:05 Dose: 50 mls/hr Metoprolol Tartrate (Metoprolol Tartrate 25 Mg Tablet) 12.5 mg PO X1 ONE Stop: 11/30/24 19:44 Last Admin: 11/30/24 21:03 Dose: 12.5 mg Metoprolol Tartrate (Metoprolol Tartrate 25 Mg Tablet) 25 mg PO BID [facility] Stop: 12/31/24 09:29 Last Admin: 12/02/24 09:17 Dose: Not Given Nifedipine (Nifedipine Xl 30 Mg Tabcr) 30 mg PO BID [facility] Stop: 12/30/24 22:59 Nifedipine (Nifedipine Xl 30 Mg Tabcr) 30 mg PO BID [facility] Stop: 12/31/24 08:59 Last Admin: 12/01/24 20:32 Dose: Not Given Nifedipine (Nifedipine Xl 30 Mg Tabcr) 30 mg PO QDAY [facility] Stop: 01/01/25 08:59 Last Admin: 12/02/24 09:18 Dose: Not Given Potassium Chloride (Potassium Chloride 10% 20 Meq/15 Ml Udc) 40 meq PO X1 ONE Stop: 11/30/24 21:46 Last Admin: 11/30/24 22:47 Dose: 40 meq Assessment & Plan Plan # Multiple falls on anticoagulant Multiple falls over the past 2 years. Denies prodrome or lightheadedness. Per family, patient has been progressively nonambulatory, using a walker which then progressed to using a wheelchair exclusively after a fall with head strike earlier this month. Family notes that patient is no longer active, prefers to sit in bed all day, minimal socializing. Patient denies depressed mood or anhedonia. No focal neurodeficits. Patient able to stand with support, takes several steps with walker. Lactic acid WNL Triglycerides 90 WNL, cholesterol 144 WNL, LDL 86 WNL, HDL 40 WNL TSH and free T4 WNL Cervical spine CT without contrast: No acute fracture CT head without contrast: Negative for acute hemorrhage, mass effect, midline shift. Cortical atrophy. EKG 11/30: A-fib, HR 79, QTc 388 TTE: LVEF 50-55%. RV systolic function moderately decreased, RV size moderately increased. Moderately increased LA. Normal LV size and function. PT rec: SNF DDX: generalized weakness/deconditioning, cardiogenic syncope (2/2 afib) Plan: - ASA 81 mg daily - ASCVD: unable to calculate as patient age >75 y/o. 21.5% (with patient age max entered, 75 y/o) risk of CV event in next 10 years (sBP 132, on tx for HTN). Rec moderate-high intensity statin. Patient also has a chronic inflammatory disease (RA, on biologic agent/immunosuppressant), CKD, history of hypertension, and history of CAD. Given this history, can consider starting patient on statin, though modest use shared decision making in consideration of polypharmacy and making this decision. - Patient encouraged to participate in physical therapy - Pending MRI brain without contrast -Pending EEG # A-fib Plan: - Management per primary, cardiology-Eliquis 2.5 mg twice daily, metoprolol 25 mg twice daily #Hypertensive urgency - resolved #Hx of Hypertension Patient initially presented with hypertensive urgency Home med: Nifedipine 30 mg daily at home Plan: ? Management per primary -metoprolol, nifedipine, hydralazine as needed #CKD stage IIIb #Elevated troponin - resolved #History of CAD s/p CABG #Status post stents #History of GERD #Rheumatoid arthritis (on Xeljanz) # Hematuria on UA Plan: - Management per primary Plan discussed with Dr.Thiagarajan Mel Lambert, PGY1 Attending Provider Attestation/Addendum I personally have seen and examined the patient at the bedside and I agree with the resident's findings assessment and plan of care. Follow-up with the EEG to evaluate for syncope/rule out seizures and MRI brain as it becomes available.
[2024-12-03] VITALS (10 sets, daily range): BP systolic 114–176; BP diastolic 59–115; PULSE 60–101; RESP 16–31; TEMP 36.1–37.6; O2SAT 91–97; BMI 30.1
--- NOTE | 2024-12-03 | XR_ITS ---
Examination: MRI brain without intravenous contrast. Date and time of exam: December 03, 2024 1743 hours INDICATIONS: Frequent falls beginning November 23, 2024 with head pain, history acute infarcts on MRI brain February 20, 2014 Technique: Multiple axial and sagittal images of the brain obtained. Siemens high-resolution 1.5 Cristel short bore scanners utilized. Sagittal sections, T1-weighted, TR 500, TE 14, are performed. Axial sections proton-density and T2-weighted have been obtained. Inversion recovery axial images, TR 9, 260, TE 111, TI 2500. Diffusion weighted images, axial sections, TR 4800, TE 128, B value 1000 Axial sections, ADC map, TR 4800, TE 128 Findings: Enlargement of the sella turcica is not present. The optic chiasm and infundibular are not remarkable. Prepontine and interpeduncular cisterns are not enlarged. There is no localized enlargement of the medulla or manisha. Fourth ventricle and cerebellar tonsils appear normal in position. No subacute area of hemorrhage density is seen. Mass in the cerebellopontine angle region is not evident. Globes symmetrical. Orbital musculature including medial lateral rectus muscles do not exhibit abnormality. Diffusion-weighted images demonstrate 7 mm focus restricted diffusion right cerebellar hemisphere with signal deficit on the ADC map, 3 mm focus restricted diffusion right high parietal lobe with probable signal deficit on the ADC map. Increased white matter signal prominent Mass effect upon the ventricular system is not identified. 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
[2024-12-03 05:54] LABS: Basophils # (Auto) 0.0 Thou/mm3 (0.0-0.2); Basophils % (Auto) 1 % (0-2.5); Eosinophils # (Auto) 0.1 Thou/mm3 (0.0-0.5); Eosinophils % (Auto) 2 % (0-10); Hematocrit 40.3 % (36.0-46.0); Hemoglobin 13.2 g/dL (12.0-16.0); Immature Granulocytes Auto 0.04 Thou/mm3 (0.00-0.00); Lymphocytes # (Auto) 0.7 Thou/mm3 (1.0-4.8); Lymphocytes % (Auto) 10 % (10-50); Mean Corpuscular HGB Conc 32.8 g/dl (31.0-37.0); Mean Corpuscular Hemoglobin 31.4 pg (25.0-35.0); Mean Corpuscular Volume 96 fL (80-100); Monocytes # (Auto) 0.6 Thou/mm3 (0.0-0.8); Monocytes % (Auto) 10 % (0-12); Neutrophils # (Auto) 5.0 Thou/mm3 (1.8-7.7); Neutrophils % (Auto) 78 % (37-80); Nucleated Red Blood Cell # 0.00 Thou/mm3 (0.00-0.00); Nucleated Red Blood Cell % 0 /100 WBC (0); Platelet Count 229 Thou/mm3 (140-440); RDW Standard Deviation 46.5 fL (36.4-46.3); Red Blood Count 4.20 Miln/mm3 (4.00-5.20); White Blood Count 6.5 Thou/mm3 (3.6-11.0)
[2024-12-03 06:36] LABS: Alanine Aminotransferase 15 U/L (10-49); Albumin, Serum 3.5 gm/dL (3.4-4.8); Albumin/Globulin Ratio 1.4 (1.2-2.2); Alkaline Phosphatase 119 U/L (46-116); Anion Gap 11 (7-16); Aspartate Amino Transferase 23 U/L (0-34); BUN/Creatinine Ratio 11 Ratio (12-20); Bilirubin,Total 0.6 mg/dL (0.3-1.2); Blood Urea Nitrogen 16 mg/dL (9-23); Calcium 9.9 mg/dL (8.3-10.6); Calcium (Corrected) 10.3 mg/dL (8.5-10.1); Carbon Dioxide 27.9 mMol/L (20.0-31.0); Chloride 102 mMol/L (98-107); Creatinine (Component) 1.4 mg/dL (0.6-1.3); Estimated Creatinine Clearance 38.1 mL/min (>60); Globulin 2.5 gm/dL (2.3-3.5); Glucose 110 mg/dL (74-106); Magnesium 1.8 mg/dL (1.6-2.6); Osmolality,Calculated 283 (275-295); Phosphorous 2.7 mg/dL (2.4-5.1); Potassium 4.0 mMol/L (3.4-5.1); Sodium 141 mMol/L (136-145); Total Protein 6.0 gm/dL (5.7-8.2); eGFR 37 See Note
[2024-12-03] MEDS: APIXABAN 2.5 MG TABLET PO ×2 (10:13→20:42)
[2024-12-03] MEDS: METOPROLOL TARTRATE 25 MG TABLET PO ×2 (10:14→20:42)
[2024-12-03] MEDS: PANTOPRAZOLE 40 MG TABLET PO (10:14)
[2024-12-03] MEDS: ASPIRIN EC 81 MG TABEC PO (10:14)
[2024-12-03] MEDS: XELJANZ 11 MG PO (10:15)
[2024-12-03] MEDS: NIFEdipine XL 30 MG TABCR PO (10:15)
--- NOTE | 2024-12-03 11:28 | PC.SS ---
SS [facility] confirming waiting for pt to be alert before making decision on facility [facility] able to move beds around and has female bed SS met with Hemanth at pt bedside, he would like for pt to be alert for decision SS spoke with [facility], confirmed female bed not avaialble for few days [facility]--pending female bed SS completed [facility] and sent to SNF SS sent over SNF placement packet; SS met with Hemanth, brother of pt, at bedside and provided him with medicare information; SS will follow up on SNF update
--- NOTE | 2024-12-03 16:07 | ESPR_ITS ---
<Statement entered by Jonny Ding MD - 12/13/24 07:45> I reviewed above note and agree with findings and plans. I have also personally examined the patient with medicine team and went over assessment and plan with medical team including application support intern and resident physician. Documentation for date of: 12/03/24 Subjective Subjective Interval history: No overnight events. Patient is pending SNF placement, requires 3 nights hospitilized, likely to discharge tomorrow after MRI. EEG noted with abnormal and mild diffuse slowing, likely early dementia per neurology. Exam Vital Signs Temp Pulse Resp BP Pulse Ox O2 Del Method 99.7 F 91 31 H 176/115 H 97 Room Air 12/03/24 15:18 12/03/24 15:18 12/03/24 15:18 12/03/24 15:18 12/03/24 15:18 12/03/24 15:18 Narrative Exam General Appearance: Alert & Oriented X1, well-nourished female who is lying in bed in no acute distress HEENT: Skull symmetrical and atraumatic. Conjunctivae pin and moist. Pupils equal, round, reactive to light and accommodation (PERRL). External ear without lesion or discharge. Straight, nares patient, mucosa pink, no discharge. No thyroid nodule appreciated. No cervical lymphadenopathy. Cardio: Normal Rate and Rhythm with S1 and S2 heart sounds. No murmurs or extra heart sounds auscultated. No bruits on carotid auscultation. No peripheral edema or cyanosis. Lungs: Symmetric with good expansion. Chest and back non-tender. Breath sounds vesicular without crackles, wheezing or rhonchi Abdomen: Non-tender, Non-distended, Normal Reactive Bowel Sounds Neuro: Yes Alert, Yes cooperative, Yes oriented to person, NO place, and NO time. Speech clear. CN grossly intact. Upper motor strength 4/5 and Lower motor strength 3/5. Sensation intact. Objective Labs 12/03/24 04:23 12/03/24 04:23 Labs: Laboratory Results - last 24 hr 12/03/24 04:23 WBC 6.5 RBC 4.20 Hgb 13.2 Hct 40.3 MCV 96 MCH 31.4 MCHC 32.8 RDW Std Deviation 46.5 H Plt Count 229 Neut % (Auto) 78 Lymph % (Auto) 10 Woodson % (Auto) 10 Eos % (Auto) 2 Baso % (Auto) 1 Neut # (Auto) 5.0 Lymph # (Auto) 0.7 L Woodson # (Auto) 0.6 Eos # (Auto) 0.1 Baso # (Auto) 0.0 Immature Gran # (Auto) 0.04 H Absolute Nucleated RBC 0.00 Immature Gran % 1 H Nucleated RBC % 0 Sodium 141 Potassium 4.0 Chloride 102 Carbon Dioxide 27.9 Anion Gap 11 BUN 16 Creatinine 1.4 H Estim Creat Clear Calc 38.1 L eGFR 37 L BUN/Creatinine Ratio 11 L Glucose 110 H Calculated Osmolality 283 Calcium 9.9 Corrected Calcium 10.3 H Phosphorus 2.7 Magnesium 1.8 Total Bilirubin 0.6 AST 23 ALT 15 Alkaline Phosphatase 119 H Total Protein 6.0 Albumin 3.5 Globulin 2.5 Albumin/Globulin Ratio 1.4 Quality Measures Quality Measures none Advance care planning discussed with:: patient Assessment & Plan Assessment Current Active Medications: Generic Name Dose Route Start Last Admin Trade Name Freq PRN Reason Stop Dose Admin Acetaminophen 650 mg 11/30/24 22:45 Acetaminophen 325 Mg Tablet PO 12/30/24 22:44 Q6H PRN PAIN SCALE 1-3 (mild Apixaban 2.5 mg 12/01/24 09:00 12/03/24 10:13 Apixaban 2.5 Mg Tablet PO 12/31/24 08:59 2.5 mg BID DIANA Administration Aspirin 81 mg 12/01/24 09:00 12/03/24 10:14 Aspirin Ec 81 Mg Tabec PO 12/31/24 08:59 81 mg QDAY DIANA Administration Bumetanide 1 mg 12/03/24 16:15 Bumetanide 0.5 Mg Tablet PO 01/02/25 16:14 QDAY DIANA Xeljanz Xr ( 0 ea 12/01/24 09:00 12/03/24 10:15 Tofacitinib) 11 Mg PO 12/31/24 08:59 1 tablet Tablets DAILY DIANA Administration Hydralazine HCl 10 mg 12/02/24 17:29 Hydralazine Inj 20 Mg/Ml Vial IVP 01/01/25 17:28 Q6HR PRN hypertension Metoprolol Tartrate 25 mg 12/02/24 15:49 12/03/24 10:14 Metoprolol Tartrate 25 Mg Tablet PO 12/31/24 09:29 25 mg BID DIANA Administration Nifedipine 30 mg 12/02/24 15:50 12/03/24 10:15 Nifedipine Xl 30 Mg Tabcr PO 01/01/25 08:59 30 mg QDAY DIANA Administration Ondansetron HCl 4 mg 11/30/24 22:45 Ondansetron Inj 2 Mg/Ml Inj 2 Ml IVP 12/30/24 22:44 Q6H PRN NAUSEA OR VOMITING Protocol Pantoprazole Sodium 40 mg 12/01/24 10:30 12/03/24 10:14 Pantoprazole 40 Mg Tablet PO 12/31/24 10:29 40 mg QDAY DIANA Administration Sennosides 1 tab 12/01/24 09:00 12/03/24 10:16 Senna Tablet PO 12/31/24 08:59 Not Given QDAY DIANA Protocol Plan Patient is an 83-year-old female with past medical history of hypertension, hyperlipidemia, rheumatoid arthritis on Xeljanz, A-fib on Eliquis, CAD status post stents, and renal artery stenosis status post stent placement presenting to the ED on 12/01 with episode of chest pain, will be admitted for hypertensive urgency with mild troponin elevation likely secondary to NSTEMI type II along with workup for syncope. #Syncope, cardiac versus neurogenic #Hx of multiple falls #Left shoulder weakness Patient reports multiple sudden syncopal episodes over the past 2 years. Denies prodrome or lightheadedness. Endorses complete LOC but denies head trauma. Since last fall on 11/30, patient endorses left arm and left leg weakness. Syncope likely secondary to cardiac (afib) versus neurogenic (possible TIA/stroke or seizure) vs orthostatic vitals. EEG : No seizure acitive, early dementia. CT cervical spine negative for acute cervical fractures. CT head negative for acute findings. CT chest abdomen pelvis shows osseous structures that appear intact otherwise no concerning findings. EKG shows atrial fibrillation but there appears to be P waves. Plan: - Consider neurological work up for seizure or stroke - Ordered MRI - Ordered left upper arm, left lower arm, and left hip XR - PT following, recommended SNF, patient agreeable to placement - Consult neurology Dr. Bhatia, appreciate recommendations #Atrial Fibrillation #Atrial Fibrillation, w/ RVR, resolved Presented with afib with RVR. Patient has history of A-fib, on Eliquis. Has extensive cardiac history, follows Dr. Dutta outpatient. Echo (11/30/2024): Normal left ventricular size and function. Approximate ejection fraction is 50-55%. The RV systolic function is moderately decreased. The RV size is moderately increased. Moderately increased LA size Trace mitral and trace tricuspid regurgitation CHADVASC 5 (age, female, HTN hx, possible CAD) Stroke risk 4.8% per year Plan: ?Continue metoprolol tartrate 25 mg twice daily, hold if systolic less than 100 or heart rate less than 65 - Continue Eliquis 2.5 mg p.o. twice daily ?Telemetry monitoring - Cardiology Dr. Dutta consulted, appreciate recommendations #Hypotension #Hypertensive urgency -resolved #Hx of Hypertension Blood pressure on admission. Patient has history of hypertension, takes nifedipine XL 30 mg BID-->reduced to Nifedipine 30 mg qday. Plan: -Nifiedipine 30 mg once dialy, continue to monitor, if blood pressure low, consider Discontinue - Continue home dose nifedipine, hold if systolic less than 100 - Started hydralazine 10 mg q6hr prn if systolic >180 or DBP >110 #RY on CKD stage IIIb #CKD Patient has a past medical history of CKD with GFR near mid 30s, likely seoncondary history of hypertension, previous renal US form 2018 noted for significant bilateral renal cortical thinning and scar formation. Improved RY on CKD, likely pre-renal in nature but not be ruled intrinsic kidney injury vs worsening CKD. Given improved CR 1.6-->1.4 likely RY on CKD. IMproved GFR 37. Plan: ?Avoid nephrotoxic agents - Renally dose medications ?Monitor with morning labs ?Replete electrolytes as needed ? IV hydration as needed, will encourage oral hydration #History of CAD? #Status post stents Per Dr. Gabriel machine operator who placed stents years ago, likely due to CAD. Unknown if had AR. ASCVD cannot be calculated as pt is over 75. Not on statins. Lipid panel 12/01 shows triglycerides 90, total cholesterol 144, LDL 86, HDL 40. ? Consider starting on statin #History of GERD Takes Protonix 40 mg every morning at home. ? continue protonix #Rheumatoid arthritis Patient on Xeljanz Plan: -resume home medication #Elevated troponin , likely NSTEMI type II Health Maintenance: Disp: Pt is currently admitted to floors for further management of syncope work up, awaiting MRI. FEN: Cardiac DVT: Eliquis & Aspirin Code: Full - The patient's plan was discussed with attending Dr. Toña Hughes MD PGY2 Internal Medicine
--- NOTE | 2024-12-03 16:14 | PC.NURSE ---
DR. BRYSON MADE AWARE PTS HR DROPS TO LOW 30'S AND 40'S FOR SECONDS, PT DOESN'T SUSTAIN AND GOES UP TO 60'S AND 80'S. MD WILL PUT IN ORDERS.
--- NOTE | 2024-12-03 17:37 | PC.NURSE ---
PATIENT TRANSFER TO MRI VIA GURNEY.
--- NOTE | 2024-12-03 19:21 | PC.NURSE ---
DR. BROOKS MADE AWARE MRI RESULTED.
[2024-12-03] MEDS: ATORVASTATIN CALCIUM 20 MG TABLET 40 MG PO (20:42)
--- NOTE | 2024-12-03 23:53 | PD.VPROG1 ---
Telemedicine visit statement This visit was conducted with the use of phone was obtained on 12/03/24 at 2353. Documentation for date of: 12/03/24 Subjective Subjective Interval history: Patient is in MedSurg, no new symptoms or recurrent similar symptoms after admission. He is tolerating oral diet well. Moves all 4 extremities and able to sit up at the edge of the bed and walk few steps with minimal assistance. She is anxious of falls as she did not have the usual walker with wheels. Virtual exam Vital Signs Temp Pulse Resp BP Pulse Ox O2 Del Method 97.0 F 101 H 16 114/59 L 95 Room Air 12/03/24 20:00 12/03/24 20:42 12/03/24 20:00 12/03/24 20:42 12/03/24 20:00 12/03/24 20:00 Objective Labs 12/03/24 04:23 12/03/24 04:23 Labs: Laboratory Results - last 24 hr 12/03/24 04:23 WBC 6.5 RBC 4.20 Hgb 13.2 Hct 40.3 MCV 96 MCH 31.4 MCHC 32.8 RDW Std Deviation 46.5 H Plt Count 229 Neut % (Auto) 78 Lymph % (Auto) 10 [place] % (Auto) 10 Eos % (Auto) 2 Baso % (Auto) 1 Neut # (Auto) 5.0 Lymph # (Auto) 0.7 L [place] # (Auto) 0.6 Eos # (Auto) 0.1 Baso # (Auto) 0.0 Immature Gran # (Auto) 0.04 H Absolute Nucleated RBC 0.00 Immature Gran % 1 H Nucleated RBC % 0 Sodium 141 Potassium 4.0 Chloride 102 Carbon Dioxide 27.9 Anion Gap 11 BUN 16 Creatinine 1.4 H Estim Creat Clear Calc 38.1 L eGFR 37 L BUN/Creatinine Ratio 11 L Glucose 110 H Calculated Osmolality 283 Calcium 9.9 Corrected Calcium 10.3 H Phosphorus 2.7 Magnesium 1.8 Total Bilirubin 0.6 AST 23 ALT 15 Alkaline Phosphatase 119 H Total Protein 6.0 Albumin 3.5 Globulin 2.5 Albumin/Globulin Ratio 1.4 Assessment & Plan Problem List (1) Acute CVA (cerebrovascular accident): Status: Acute Assessment and plan: Based on the MRI brain findings: acute infarction in the right cerebellar hemisphere and chronic multi-infarct dementia pattern She does not have any extremity ataxia dysmetria but recently had been having some gait ataxia and frequent falls. Pending rehab placement. Continue with Eliquis and aspirin with statin (2) Atrial fibrillation: Status: Chronic Assessment and plan: Continue with rate control and Eliquis (3) Syncope: Status: Acute Assessment and plan: EEG did not show any epileptiform discharges but slowing consistent with early dementia (4) Hypertensive urgency: Status: Resolved Assessment and plan: Continue with aggressive blood pressure management
[2024-12-04] VITALS (12 sets, daily range): BP systolic 106–151; BP diastolic 60–91; PULSE 7–88; RESP 16–18; TEMP 36.1–36.6; O2SAT 94–96; BMI 29.7
[2024-12-04 05:28] LABS: Basophils # (Auto) 0.0 Thou/mm3 (0.0-0.2); Basophils % (Auto) 1 % (0-2.5); Eosinophils # (Auto) 0.2 Thou/mm3 (0.0-0.5); Eosinophils % (Auto) 3 % (0-10); Hematocrit 37.4 % (36.0-46.0); Hemoglobin 12.5 g/dL (12.0-16.0); Immature Granulocytes Auto 0.05 Thou/mm3 (0.00-0.00); Lymphocytes # (Auto) 0.8 Thou/mm3 (1.0-4.8); Lymphocytes % (Auto) 14 % (10-50); Mean Corpuscular HGB Conc 33.4 g/dl (31.0-37.0); Mean Corpuscular Hemoglobin 32.0 pg (25.0-35.0); Mean Corpuscular Volume 96 fL (80-100); Monocytes # (Auto) 0.6 Thou/mm3 (0.0-0.8); Monocytes % (Auto) 11 % (0-12); Neutrophils # (Auto) 4.2 Thou/mm3 (1.8-7.7); Neutrophils % (Auto) 71 % (37-80); Nucleated Red Blood Cell # 0.00 Thou/mm3 (0.00-0.00); Nucleated Red Blood Cell % 0 /100 WBC (0); Platelet Count 230 Thou/mm3 (140-440); RDW Standard Deviation 47.3 fL (36.4-46.3); Red Blood Count 3.91 Miln/mm3 (4.00-5.20); White Blood Count 5.8 Thou/mm3 (3.6-11.0)
[2024-12-04 06:09] LABS: Alanine Aminotransferase 19 U/L (10-49); Albumin, Serum 3.3 gm/dL (3.4-4.8); Anion Gap 9 (7-16); Aspartate Amino Transferase 24 U/L (0-34); BUN/Creatinine Ratio 12 Ratio (12-20); Bilirubin,Total 0.5 mg/dL (0.3-1.2); Blood Urea Nitrogen 16 mg/dL (9-23); Calcium 9.8 mg/dL (8.3-10.6); Carbon Dioxide 28.1 mMol/L (20.0-31.0); Chloride 104 mMol/L (98-107); Creatinine (Component) 1.3 mg/dL (0.6-1.3); Estimated Creatinine Clearance 41.0 mL/min (>60); Glucose 99 mg/dL (74-106); Magnesium 1.7 mg/dL (1.6-2.6); Osmolality,Calculated 282 (275-295); Phosphorous 2.8 mg/dL (2.4-5.1); Potassium 3.9 mMol/L (3.4-5.1); Sodium 141 mMol/L (136-145); Total Protein 5.7 gm/dL (5.7-8.2); eGFR 41 See Note
[2024-12-04 06:10] LABS: Albumin/Globulin Ratio 1.4 (1.2-2.2); Alkaline Phosphatase 106 U/L (46-116); Calcium (Corrected) 10.4 mg/dL (8.5-10.1); Globulin 2.4 gm/dL (2.3-3.5)
--- NOTE | 2024-12-04 07:36 | XR_ITS ---
Examination: Forearm, left, 2 views. Technique: Forearm, AP, lateral 2 views Date and time of exam: 0102 hrs. Indications: Injury to the forearm today, forearm pain. Findings: Nonstandard views. Severe osteopenia. No acute fracture noted Impression: Limited study No acute fracture noted Suggest follow-up true lateral view the wrist as clinically warranted
--- NOTE | 2024-12-04 07:36 | XR_ITS ---
Examination: Humerus 2 views left Technique: Humerus, AP lateral 2 views Date and time of exam: December 04, 2024, 0800 hrs. Indications: Patient fell today with injury to the humerus, arm pain Findings: Nonstandard views No shoulder dislocation, no acute humerus fracture depicted Impression: Limited study No acute humerus fracture depicted
--- NOTE | 2024-12-04 07:36 | XR_ITS ---
Examination: Left hip single view Technique: AP left hip single view. Date and time: December 04, 2024, 0757 hrs. Indications: Injury to the hand today, hip pain. Findings: Prominent osteopenia. No acute hip fracture or dislocation. Impression: Limited study No acute hip fracture
[2024-12-04] MEDS: BUMETANIDE 0.5 MG TABLET 1 MG PO (10:11)
[2024-12-04] MEDS: METOPROLOL TARTRATE 25 MG TABLET PO (10:11)
[2024-12-04] MEDS: ASPIRIN EC 81 MG TABEC PO (10:11)
[2024-12-04] MEDS: APIXABAN 2.5 MG TABLET PO (10:11)
[2024-12-04] MEDS: PANTOPRAZOLE 40 MG TABLET PO (10:11)
[2024-12-04] MEDS: XELJANZ 11 MG PO (10:12)
[2024-12-04] MEDS: NIFEdipine XL 30 MG TABCR PO (10:15)
--- NOTE | 2024-12-04 10:30 | PC.SS ---
Addendum entered by Naomi Cruz 12/04/24 13:28: House Registry Rn informed by TANISHA Flaherty patient is not medically clear, SS confirmed with Dr. Kelley, patient is not medically clear and will discharge tomorrow. Patient and sibling Matthew informed. TOREY Anny informed as well. Addendum entered by Naomi Cruz 12/04/24 12:37: Patient and sibling Matthew have chosen [facility]. Matthew is requesting patient have a private room. House Registry Rn informed both patient and Matthew all efforts would be made to accomodate. House Registry Rn contacted [facility], who explained they can accept patient today and will have a private room available. House Registry Rn informed patient insurance does not cover non-emergent transportation. Patient and her sibling Matthew stated neither of them can afford transportation cost. ESTEFANÍA obtained. Original Note: House Registry Rn attempted to discuss SNF options with patient. However, patient requested video game script writer return at 1200 when her sibling Hemanth is present at bedside. SS to follow up. Rounding note: patient is medically clear and can discharge today.
--- NOTE | 2024-12-04 11:23 | XR_ITS ---
Examination: Left wrist 2 views Technique: AP lateral left wrist 2 views Date and time: December 04, 2024, 1135 hrs. Indications: Ground-level fall today with injury to the wrist, wrist pain. Findings: Severe osteopenia No acute fracture Significant narrowing radiocarpal joint Impression: No acute fracture Given the severe osteopenia, suggest short-term follow-up wrist films as clinically warranted
--- NOTE | 2024-12-04 11:27 | ESPR_ITS ---
<Statement entered by Jonny Ding MD - 12/13/24 07:45> I reviewed above note and agree with findings and plans. I have also personally examined the patient with medicine team and went over assessment and plan with medical team including international affairs vice president and resident physician. Documentation for date of: 12/04/24 Senior resident attestation: Patient evaluated and examined at the bedside, plan of care discussed with rest of the team including my attending physician, except as noted. He was noted to have a stroke cerebellar and parietal lobe on MRI, likely embolic stroke given history of A-fib, previously was on low-dose Eliquis, but did not meet criteria, spoke to cardiology, agreed with resuming full dose anticoagulation, started Eliquis 5 mg twice daily in addition to aspirin, in the setting of possible cardioembolic stroke. Ordered physical therapy, pending SNF placement. Quresh PGY3 Subjective Subjective Interval history: Overnight, MRI result showed acute right cerebellar and right parietal infarcts, was started on atorvastatin 40 mg HS overnight. Patient seen and examined at bedside this AM. Continues to endorse left arm and left lower extremity weakness. Alert and oriented to self, date, and place this morning. Labs and vitals were reviewed. BP 151/91 prior to medications, will continue Bumex, nifedipine, and metoprolol daily. EEg 12/03 showed diffuse slowing, suggestive of dementia. MRI results also supported signs of dementia. Cardiology Dr. Gabriel consulted, will increase Eliquis to 5 mg BID. Patient reports she has not been compliant with her evening Eliquis dose. Anticipate discharge to SNF tomorrow. Review of systems otherwise negative except what is mentioned above. Exam Vital Signs Temp Pulse Resp BP Pulse Ox O2 Del Method 97.9 F 78 17 106/63 94 L Room Air 12/04/24 08:00 12/04/24 10:22 12/04/24 08:00 12/04/24 10:15 12/04/24 08:00 12/04/24 08:00 Narrative Exam Physical Exam General: Awake and in no acute distress. Conversational and non-toxic appearing. HEENT: Normocephalic, atraumatic, mucous membranes moist. Heart: Regular rate and rhythm, normal S1 and S2, no murmurs. Lungs: Clear to auscultation with no wheezing or crackles. Abdomen: Soft, nondistended, nontender, positive bowel sounds. No guarding or rebound tenderness. Neurologic: Alert and oriented x3, no gross neurological deficit, and patient able to move all 4 extremities. Upper motor strength 4/5 and Lower motor strength 3/5. Sensation intact. Extremities: No edema. Skin: No rash or ecchymoses. Objective Labs 12/04/24 04:07 12/04/24 04:07 Labs: Laboratory Results - last 24 hr 12/04/24 04:07 WBC 5.8 RBC 3.91 L Hgb 12.5 Hct 37.4 MCV 96 MCH 32.0 MCHC 33.4 RDW Std Deviation 47.3 H Plt Count 230 Neut % (Auto) 71 Lymph % (Auto) 14 [place] % (Auto) 11 Eos % (Auto) 3 Baso % (Auto) 1 Neut # (Auto) 4.2 Lymph # (Auto) 0.8 L [place] # (Auto) 0.6 Eos # (Auto) 0.2 Baso # (Auto) 0.0 Immature Gran # (Auto) 0.05 H Absolute Nucleated RBC 0.00 Immature Gran % 1 H Nucleated RBC % 0 Sodium 141 Potassium 3.9 Chloride 104 Carbon Dioxide 28.1 Anion Gap 9 BUN 16 Creatinine 1.3 Estim Creat Clear Calc 41.0 L eGFR 41 L BUN/Creatinine Ratio 12 Glucose 99 Calculated Osmolality 282 Calcium 9.8 Corrected Calcium 10.4 H Phosphorus 2.8 Magnesium 1.7 Total Bilirubin 0.5 AST 24 ALT 19 Alkaline Phosphatase 106 Total Protein 5.7 Albumin 3.3 L Globulin 2.4 Albumin/Globulin Ratio 1.4 Quality Measures Quality Measures none Advance care planning discussed with:: patient Assessment & Plan Assessment Current Active Medications: Generic Name Dose Route Start Last Admin Trade Name Freq PRN Reason Stop Dose Admin Acetaminophen 650 mg 11/30/24 22:45 Acetaminophen 325 Mg Tablet PO 12/30/24 22:44 Q6H PRN PAIN SCALE 1-3 (mild Apixaban 5 mg 12/04/24 11:15 Apixaban 2.5 Mg Tablet PO 01/03/25 11:14 BID DIANA Aspirin 81 mg 12/01/24 09:00 12/04/24 10:11 Aspirin Ec 81 Mg Tabec PO 12/31/24 08:59 81 mg QDAY DIANA Administration Atorvastatin Calcium 40 mg 12/03/24 21:00 12/03/24 20:42 Atorvastatin Calcium 20 Mg Tablet PO 01/02/25 20:59 40 mg HS DIANA Administration Bumetanide 1 mg 12/03/24 16:15 12/04/24 10:11 Bumetanide 0.5 Mg Tablet PO 01/02/25 16:14 1 mg QDAY DIANA Administration Xeljanz Xr ( 0 ea 12/01/24 09:00 12/04/24 10:12 Tofacitinib) 11 Mg PO 12/31/24 08:59 1 tablet Tablets DAILY DIANA Administration Hydralazine HCl 10 mg 12/02/24 17:29 Hydralazine Inj 20 Mg/Ml Vial IVP 01/01/25 17:28 Q6HR PRN hypertension Metoprolol Tartrate 25 mg 12/02/24 15:49 12/04/24 10:11 Metoprolol Tartrate 25 Mg Tablet PO 12/31/24 09:29 25 mg BID DIANA Administration Nifedipine 30 mg 12/02/24 15:50 12/04/24 10:15 Nifedipine Xl 30 Mg Tabcr PO 01/01/25 08:59 30 mg QDAY DIANA Administration Ondansetron HCl 4 mg 11/30/24 22:45 Ondansetron Inj 2 Mg/Ml Inj 2 Ml IVP 12/30/24 22:44 Q6H PRN NAUSEA OR VOMITING Protocol Pantoprazole Sodium 40 mg 12/01/24 10:30 12/04/24 10:11 Pantoprazole 40 Mg Tablet PO 12/31/24 10:29 40 mg QDAY DIANA Administration Sennosides 1 tab 12/01/24 09:00 12/04/24 10:11 Senna Tablet PO 12/31/24 08:59 1 tab QDAY DIANA Administration Protocol Plan Patient is an 83-year-old female with past medical history of hypertension, hyperlipidemia, rheumatoid arthritis on Xeljanz, A-fib on Eliquis, CAD status post stents, and renal artery stenosis status post stent placement presenting to the ED on 12/01 with episode of chest pain, will be admitted for hypertensive urgency with mild troponin elevation likely secondary to NSTEMI type II along with workup for syncope. Found to have acute right cerebellar and possibly parietal CVAs. #Acute right cerebellar CVA #Possible acute right parietal CVA #Left upper and lower extremity weakness Patient has history of recurrent falls and endorses worsening weakness. Since last fall on 11/30, patient endorses left arm and left leg weakness. Per patient she has not been compliant with evening Eliquis dose. Patient is currently on Eliquis 2.5 mg BID; however she is over 80 y/o; however her body weight is > 60kg (94 kg), and her creatinine is <1.5 (creatinine 1.3). MRI 12/03: 7 mm acute infarct right cerebellar hemisphere. Suspicious for 3 mm acute infarct high right parietal lobe. Plan: - Increase Eliquis to 5 mg BID - Continue atorvastatin 40 mg HS daily - PT following, recommended SNF, patient agreeable to placement #Syncope, cardiac versus neurogenic #Hx of multiple falls Patient reports multiple sudden syncopal episodes over the past 2 years. Denies prodrome or lightheadedness. Endorses complete LOC but denies head trauma. Syncope likely secondary to cardiac (afib) versus neurogenic (possible TIA/stroke or seizure) vs orthostatic. EEG : No seizure acitive, early dementia. CT cervical spine negative for acute cervical fractures. CT head negative for acute findings. CT chest abdomen pelvis shows osseous structures that appear intact otherwise no concerning findings. EKG shows atrial fibrillation but there appears to be P waves. Plan: - Consider further outpatient neurological work up for seizure - PT following, recommended SNF, patient agreeable to placement - Consult neurology Dr. Bhatia, appreciate recommendations #Atrial Fibrillation #Atrial Fibrillation, w/ RVR, resolved Presented with afib with RVR. Patient has history of A-fib, on Eliquis. Has extensive cardiac history, follows Dr. Dutta outpatient. Echo (11/30/2024): Normal left ventricular size and function. Approximate ejection fraction is 50-55%. The RV systolic function is moderately decreased. The RV size is moderately increased. Moderately increased LA size Trace mitral and trace tricuspid regurgitation CHADVASC 5 (age, female, HTN hx, possible CAD) Stroke risk 4.8% per year Plan: ?Continue metoprolol tartrate 25 mg twice daily, hold if systolic less than 100 or heart rate less than 65 - Eliquis 5 mg BID as above ?Telemetry monitoring - Cardiology Dr. Dutta consulted, appreciate recommendations #Hypotension #Hypertensive urgency -resolved #Hx of Hypertension Blood pressure on admission. Patient has history of hypertension, takes nifedipine XL 30 mg BID-->reduced to Nifedipine 30 mg qday. Plan: - Continue Nifiedipine 30 mg once dialy, continue to monitor, if blood pressure low, consider Discontinue - Start Bumex 1 mg PO daily - Hydralazine 10 mg q6hr prn if systolic >180 or DBP >110 #RY - resolved #CKD stage IIIb Patient has a past medical history of CKD with GFR near mid 30s, likely secondary to history of hypertension, previous renal US form 2018 noted for significant bilateral renal cortical thinning and scar formation. Resolved RY (1.6 --> 1.3) on CKD, likely pre-renal in nature but not be ruled intrinsic kidney injury. GFR 41. Plan: ?Avoid nephrotoxic agents - Renally dose medications ?Monitor with morning labs ?Replete electrolytes as needed ? IV hydration as needed, will encourage oral hydration #Hypercalcemia, mild Corrected calcium mildly elevated 10-10.5 throughout admission, 11.0 on admission. Last PTH on 11/04/24 was 420.3, appears to be chronically elevated since 2017. Last vitamin D 11/04/24 was 23.2 (within normal limits). Takes ergocalciferol D2 50,000 units weekly. Parathyroid scan in 06/23/24 was negative for parathyroid adenoma. No cervical swelling or enlargement noted on physical exam. 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 Plan: - Continue home dose ergocalciferol - Outpatient follow up/monitoring #History of CAD #Status post stents Per Dr. Gabriel head loft worker who placed stents years ago, likely due to CAD. Unknown if had VA. ASCVD cannot be calculated as pt is over 75. Not on statins. Lipid panel 12/01 shows triglycerides 90, total cholesterol 144, LDL 86, HDL 40. ? Start on atorvastatin 40 mg HS #Dementia Noted on MRI and EEG. Orientation waxes and wanes. A&Ox3 this morning. - Follow up outpatient - Consider lifestyle changes - Discharge to SNF #History of GERD Takes Protonix 40 mg every morning at home. ? continue protonix #Rheumatoid arthritis Patient on Xeljanz Plan: -resume home medication #Elevated troponin , likely NSTEMI type II - resolved Health Maintenance: Lines: PIV Diet: Cardiac Bowel: Senna GI prophylaxis: Protonix, Zofran for nausea DVT prophylaxis: Rosemary Dispo: Cardiac consultation, PT for SNF Code: Full Patient plan of care was discussed with the senior resident, Dr. Baldwin, and attending physician, Dr. Ding. Tricia Abarca, PGY-1
--- NOTE | 2024-12-04 15:35 | ESPR_ITS ---
Documentation for date of: 12/04/24 Subjective Subjective Interval history: rate controlled afib CVA on MRI agree with increaseing eliquis 5 bid no other cardiac symptoms Exam Vital Signs Temp Pulse Resp BP Pulse Ox O2 Del Method 97.4 F 71 18 125/64 94 L Room Air 12/04/24 12:00 12/04/24 13:10 12/04/24 12:00 12/04/24 12:00 12/04/24 12:00 12/04/24 12:00 Routine HEENT Exam Head: Present normocephalic and atraumatic Eye: Present EOMI and PERRL ENT: Present mucous membranes moist Routine Neck Exam Neck: Present supple and trachea midline Routine Respiratory Exam Respiratory: Present chest non-tender, lungs clear, normal breath sounds and no resp distress Routine Cardiovascular Exam Cardiovascular: Present RRR Routine Abdominal Exam Abdominal: Present soft and normoactive bowel sounds Routine Extremities Exam Extremities: Present full ROM Routine Skin Exam Skin: Present intact, dry and warm Routine Neurological Exam Neurological: Present alert, oriented X3 and CN II-XII intact Routine Psychiatric Exam Psychiatric: Present normal affect and normal thought process Objective Labs 12/04/24 04:07 12/04/24 04:07 Labs: Laboratory Results - last 24 hr 12/04/24 04:07 WBC 5.8 RBC 3.91 L Hgb 12.5 Hct 37.4 MCV 96 MCH 32.0 MCHC 33.4 RDW Std Deviation 47.3 H Plt Count 230 Neut % (Auto) 71 Lymph % (Auto) 14 [place] % (Auto) 11 Eos % (Auto) 3 Baso % (Auto) 1 Neut # (Auto) 4.2 Lymph # (Auto) 0.8 L [place] # (Auto) 0.6 Eos # (Auto) 0.2 Baso # (Auto) 0.0 Immature Gran # (Auto) 0.05 H Absolute Nucleated RBC 0.00 Immature Gran % 1 H Nucleated RBC % 0 Sodium 141 Potassium 3.9 Chloride 104 Carbon Dioxide 28.1 Anion Gap 9 BUN 16 Creatinine 1.3 Estim Creat Clear Calc 41.0 L eGFR 41 L BUN/Creatinine Ratio 12 Glucose 99 Calculated Osmolality 282 Calcium 9.8 Corrected Calcium 10.4 H Phosphorus 2.8 Magnesium 1.7 Total Bilirubin 0.5 AST 24 ALT 19 Alkaline Phosphatase 106 Total Protein 5.7 Albumin 3.3 L Globulin 2.4 Albumin/Globulin Ratio 1.4 Assessment & Plan A&P Narrative Agree with current treatment plan Patient has chronic renal dysfunction agree with eliquis 5 BID contiue metoprolol Time Spent With Patient Time: Total time spent is greater than 50% in coordination of care (as documented) at patient's floor/unit and/or counseling patient:
[2024-12-04] MEDS: ATORVASTATIN CALCIUM 20 MG TABLET 40 MG PO (20:39)
[2024-12-04] MEDS: APIXABAN 2.5 MG TABLET 5 MG PO (20:40)
--- NOTE | 2024-12-04 23:05 | ESPR_ITS ---
Documentation for date of: 12/04/24 Subjective Subjective Interval history: Patient was seen in [facility] today. No new symptoms reported. Has not had any more episodes of syncope after admission. Exam - Neurology Vital Signs Temp Pulse Resp BP Pulse Ox O2 Del Method 97.0 F 63 16 127/61 96 Room Air 12/04/24 20:00 12/04/24 20:38 12/04/24 20:00 12/04/24 20:38 12/04/24 20:00 12/04/24 20:00 Narrative Exam GENERAL APPEARANCE: Well hydrated, well-nourished in no acute distress. HEENT: Normocephalic, atraumatic, extraocular movements intact. Pupils: Equal reacting to light and accommodation NECK: Supple, no JVD or bruits. CARDIOVASULAR: Heart: S1, S2 heard, irregular without S3-S4 or murmur no rubs or gallops. LUNGS/CHEST: Clear to auscultation bilaterally. No rails, rhonchi, or wheezing. Normal inspection. ABDOMEN: Soft, nontender, with normal bowel sounds. No pulsatile masses. No rebound, rigidity, or guarding. Normal inspection and palpation. EXTREMITIES: Normal inspection and palpation. No edema, clubbing or cyanosis. SKIN: Warm and dry without rashes. Normal inspection. MUSCULOSKELETAL: No cervical, thoracic, lumbar or midline bony tenderness. Normal inspection. NEURO: Alert, awake and oriented x3. Cranial nerves: II through XII grossly intact. Speech and language: Normal with no dysarthria or dysphasia. Motor system: Tone and bulk: Normal: Strength: 4 out of 5 in all 4 extremities; No pronator drift noted. Deep tendon reflexes: 1+ bilaterally symmetrical. Plantar reflex: Downgoing bilaterally. Sensory system: Intact to all modalities of sensation bilaterally. Coordination: Intact to [id number] and [id number] test bilaterally. No ataxia, no dysmetria, or dysdiadochokinesia noted. No intention tremors noted. Gait: Not tested. no signs of meningeal irritation noted. PSYCHIATRIC: Normal mood and affect. Objective Labs 12/04/24 04:07 12/04/24 04:07 Labs: Laboratory Results - last 24 hr 12/04/24 04:07 WBC 5.8 RBC 3.91 L Hgb 12.5 Hct 37.4 MCV 96 MCH 32.0 MCHC 33.4 RDW Std Deviation 47.3 H Plt Count 230 Neut % (Auto) 71 Lymph % (Auto) 14 [place] % (Auto) 11 Eos % (Auto) 3 Baso % (Auto) 1 Neut # (Auto) 4.2 Lymph # (Auto) 0.8 L [place] # (Auto) 0.6 Eos # (Auto) 0.2 Baso # (Auto) 0.0 Immature Gran # (Auto) 0.05 H Absolute Nucleated RBC 0.00 Immature Gran % 1 H Nucleated RBC % 0 Sodium 141 Potassium 3.9 Chloride 104 Carbon Dioxide 28.1 Anion Gap 9 BUN 16 Creatinine 1.3 Estim Creat Clear Calc 41.0 L eGFR 41 L BUN/Creatinine Ratio 12 Glucose 99 Calculated Osmolality 282 Calcium 9.8 Corrected Calcium 10.4 H Phosphorus 2.8 Magnesium 1.7 Total Bilirubin 0.5 AST 24 ALT 19 Alkaline Phosphatase 106 Total Protein 5.7 Albumin 3.3 L Globulin 2.4 Albumin/Globulin Ratio 1.4 Assessment & Plan Assessment and plan (1) Acute CVA (cerebrovascular accident): Status: Acute Assessment and plan: No focal neurological deficit noted. MRI findings reviewed, acute infarct in the right cerebellar hemisphere and the right parietal lobe and a chronic multi- infarct dementia pattern. Continue with apixaban and aspirin and statin. Waiting for placement (2) Atrial fibrillation: Status: Chronic Assessment and plan: Continue with rate control and apixaban twice a day (3) Syncope: Status: Acute Assessment and plan: No recurrence reported. EEG showed slowing consistent with dementia, no epileptiform discharge noted (4) Hypertensive urgency: Status: Resolved
[2024-12-05] VITALS (8 sets, daily range): BP systolic 116–133; BP diastolic 77–89; PULSE 69–88; RESP 17–19; TEMP 36.1; O2SAT 95–96
[2024-12-05 05:19] LABS: Basophils # (Auto) 0.1 Thou/mm3 (0.0-0.2); Basophils % (Auto) 1 % (0-2.5); Eosinophils # (Auto) 0.1 Thou/mm3 (0.0-0.5); Eosinophils % (Auto) 2 % (0-10); Hematocrit 36.3 % (36.0-46.0); Hemoglobin 12.3 g/dL (12.0-16.0); Immature Granulocytes Auto 0.04 Thou/mm3 (0.00-0.00); Lymphocytes # (Auto) 0.7 Thou/mm3 (1.0-4.8); Lymphocytes % (Auto) 13 % (10-50); Mean Corpuscular HGB Conc 33.9 g/dl (31.0-37.0); Mean Corpuscular Hemoglobin 32.2 pg (25.0-35.0); Mean Corpuscular Volume 95 fL (80-100); Monocytes # (Auto) 0.5 Thou/mm3 (0.0-0.8); Monocytes % (Auto) 9 % (0-12); Neutrophils # (Auto) 4.2 Thou/mm3 (1.8-7.7); Neutrophils % (Auto) 74 % (37-80); Nucleated Red Blood Cell # 0.00 Thou/mm3 (0.00-0.00); Nucleated Red Blood Cell % 0 /100 WBC (0); Platelet Count 233 Thou/mm3 (140-440); RDW Standard Deviation 46.6 fL (36.4-46.3); Red Blood Count 3.82 Miln/mm3 (4.00-5.20); White Blood Count 5.6 Thou/mm3 (3.6-11.0)
[2024-12-05 05:57] LABS: Alanine Aminotransferase 19 U/L (10-49); Albumin, Serum 3.3 gm/dL (3.4-4.8); Albumin/Globulin Ratio 1.6 (1.2-2.2); Alkaline Phosphatase 108 U/L (46-116); Anion Gap 8 (7-16); Aspartate Amino Transferase 24 U/L (0-34); BUN/Creatinine Ratio 12 Ratio (12-20); Bilirubin,Total 0.4 mg/dL (0.3-1.2); Blood Urea Nitrogen 18 mg/dL (9-23); Calcium 9.7 mg/dL (8.3-10.6); Calcium (Corrected) 10.3 mg/dL (8.5-10.1); Carbon Dioxide 30.9 mMol/L (20.0-31.0); Chloride 102 mMol/L (98-107); Creatinine (Component) 1.5 mg/dL (0.6-1.3); Estimated Creatinine Clearance 35.4 mL/min (>60); Globulin 2.1 gm/dL (2.3-3.5); Glucose 123 mg/dL (74-106); Osmolality,Calculated 284 (275-295); Potassium 3.7 mMol/L (3.4-5.1); Sodium 141 mMol/L (136-145); Total Protein 5.4 gm/dL (5.7-8.2); eGFR 34 See Note
[2024-12-05] MEDS: PANTOPRAZOLE 40 MG TABLET PO (08:55)
[2024-12-05] MEDS: APIXABAN 2.5 MG TABLET 5 MG PO (08:55)
[2024-12-05] MEDS: BUMETANIDE 0.5 MG TABLET 1 MG PO (08:55)
[2024-12-05] MEDS: ASPIRIN EC 81 MG TABEC PO (08:55)
[2024-12-05] MEDS: NIFEdipine XL 30 MG TABCR PO (08:55)
[2024-12-05] MEDS: XELJANZ 11 MG PO (08:56)
[2024-12-05] MEDS: METOPROLOL TARTRATE 25 MG TABLET PO (08:56)
--- NOTE | 2024-12-05 09:47 | ESDS_ITS ---
<Statement entered by Jonny Ding MD - 12/13/24 07:46> I reviewed above note and agree with findings and plans. I have also personally examined the patient with medicine team and went over assessment and plan with medical team including research program internship and resident physician. Planned Discharge Date 12/05/24 DS: Providers Provider Date of admission: 11/30/24 22:45 Primary care physician: Aleksandr Noble MD Admitting Provider: Cayetano Marshall MD Attending Provider on Admission: Jonny Ding MD Consults: 11/30/24 22:50 Consult to Cardiology Routine Comment: Syncope, established patient, NSTEMI I vs. II Consulting Provider: Flor Dutta 12/01/24 07:00 Referral Physical Therapy Routine Comment: Physician Instructions: 12/02/24 14:28 Consult to Neurology / Tele-Neurology Routine Comment: Consulting Provider: Coleman Hartman 12/02/24 18:48 Referral Wound Care Routine Comment: left upper arm Attending Provider on DC: Jonny Ding MD Discharging Provider: Jonny Ding MD DS: Diagnosis Problem List Completed Was Problem List Reviewed/Reconciled?: Yes Hospital Course Hospital Course Hospital course: Summary: Patient is an 83-year-old female with past medical history of hypertension, hyperlipidemia, rheumatoid arthritis on Xeljanz, A-fib on Eliquis, CAD s/p stents, and renal artery stenosis s/p stent placement presenting to the ED on 12/01 with episode of chest pain, admitted for hypertensive urgency with mild troponin elevation likely secondary to NSTEMI type II along with workup for syncope. 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 ED Course: Vitals: BP 173/92, HR 94, RR 19, temperature 97.9, saturating 95 on room air. Labs: WBC of 6.7, hemoglobin 13.6, potassium 3.2, creatinine 1.7, BUN 21 and a GFR of 30, lactic acid of 1.4, magnesium 1.7, troponin initially 0.102 and downtrended to 0.100, BNP of 48, TSH 1.86. Urinalysis negative for infection. EKG - atrial fibrillation but there appears to be P waves. Imaging: Cervical spine CT shows no acute cervical fractures, CT chest abdomen pelvis shows osseous structures that appear intact otherwise no concerning findings, head CT is negative for any acute findings Hospital Course: Patient is an 83 year old female with past medical history of hypertension, hyperlipidemia, RA on Xeljanz, Afib on Eliquis 2.5 mg BID, CAD s/p stents, and renal artery stenosis s/p stent who was admitted for hypertensive urgency with mild troponin elevation likely NSTEMI II along with work up for syncope and left sided weakness. Patient initially had episodes of afib with RVR, consulted professor of art Dr. Gabriel and started on metoprolol tartrate 25 mg BID. Now rate controlled. Increased Eliquis from 2.5 to 5mg BID due to later CVA finding. Patient reported she had been non-compliant with her evening medications due to forgetfulness. Blood pressure was labile. Home medications nifedipine 30 mg was changed to daily from BID. Also added Bumex 2mg for better control. Recommended checking blood pressure before taking medications. Patient continued to endorse left sided weakness s/p fall a few days prior to admission. Left humerus, forearm, wrist, and hip x-rays were negative for acute fracture. Neurology Dr. Hartman consulted. EEG suggested signs of dementia, also supported by brain changes on MRI. CT head on admission was negative but MRI 12/03 showed acute right cerebellar CVA, and possibly right parietal CVA. Physical therapy was consulted due to weakness, recommended SNF. Per patient and patient's brother, she will be discharged to SNF in [place]. Discharge Recommendations: -New medication of Eliquis for clot prevention. Please stop and speak to your primary provider if you bleeding does not stop with this medication -Nifedipine dose CHANGE to 30 mg once daily -Metoprolol Tartrate 25 mg twice daily for atrial fibrillation -Please follow up with your primary care provider within one week of discharge -If your symptoms worsen,please seek immediate medical attention and return to your nearest emergency room -If you do not have a primary care provider, you may follow up at the [facility] at [address], [place] [address], Hospital Diagnoses: #Acute right cerebellar CVA #Possible acute right parietal CVA #Left upper and lower extremity weakness #Syncope #Hx of multiple falls #Atrial Fibrillation #Atrial Fibrillation, w/ RVR, resolved #Hypotension #Hypertensive urgency -resolved #Hypertension #RY - resolved #CKD stage IIIb #Hypercalcemia, likely secondary hyperparathyroidism #History of CAD #Status post stents #Dementia #History of GERD #Rheumatoid arthritis #Elevated troponin , likely NSTEMI type II - resolved Disposition: Safe discharge to SNF. [facility] Patient plan of care was discussed with the resident, Dr. Hughes, and attending physician, Dr. Ding. Tricia Abarca, PGY-1 - The patient's plan was discussed with attending Dr. Toña Hughes MD PGY2 Internal Medicine Time Spent with Patient Time attestation: Total time spent providing and/or coordinating discharge services: at least 30 minutes of care coordination Time spent: Greater than 30 minutes Exam Vital Signs Temp Pulse Resp BP Pulse Ox O2 Del Method 97.0 F 88 17 116/89 H 95 Room Air 12/05/24 08:00 12/05/24 08:56 12/05/24 08:00 12/05/24 08:56 12/05/24 08:00 12/05/24 08:00 Narrative Exam Physical Exam General: Awake and in no acute distress. Conversational and non-toxic appearing. Sitting up with book on table. HEENT: Normocephalic, atraumatic, mucous membranes moist. Surgical scar on right eyelid. Heart: Regular rate and rhythm, normal S1 and S2, no murmurs. Lungs: Clear to auscultation with no wheezing or crackles. Abdomen: Soft, nondistended, nontender, positive bowel sounds. No guarding or rebound tenderness. Neurologic: Alert and oriented x3, no gross neurological deficit, and patient able to move all 4 extremities. Upper motor strength 4/5 and Lower motor strength 4/5. Sensation intact. Extremities: No edema. Skin: No rash or ecchymoses. Discharge Plan Plan Patient Disposition: Xfer Skilled Nsg Fac (SNF) Patient condition on transfer: Stable Care Plan Goals: Instructions -New medication of Eliquis for clot prevention. Please stop and speak to your primary provider if you bleeding does not stop with this medication -Nifedipine dose CHANGE to 30 mg once dialy -Metoprolol Tartrate 25 mg twice daily for atrial fibrillation -Please follow up with your primary care provider within one week of discharge -If your symptoms worsen,please seek immediate medical attention and return to your nearest emergency room -If you do not have a primary care provider, you may follow up at the [facility] at [facility] [address], [place] [address], Prescriptions/Referrals Prescriptions/Med Rec: New metoprolol tartrate 25 mg Tablet 25 mg PO BID 30 Days Qty: 60 0RF nifedipine 30 mg tablet extended release 30 mg PO QDAY 30 Days Qty: 30 0RF Eliquis 2.5 mg Tablet 5 mg PO BID 30 Days Qty: 120 0RF Continued Xeljanz 5 MG tablet 1 tab PO BID Qty: 60 bumetanide 2 MG tablet 2 mg PO BID Qty: 0 pantoprazole 40 mg Tablet,Delayed Release (Dr/Ec) 40 mg PO QAM ergocalciferol (vitamin D2) [Vitamin D2] 50,000 unit Capsule 50,000 unit PO QWEEK potassium chloride 20 mEq Tablet Extended Release 20 meq PO BID aspirin 81 mg Tablet,Chewable 81 mg PO QDAY montelukast [Singulair] 10 mg Tablet 10 mg PO QPM Discontinued nifedipine 30 mg Tablet Extended Release 24 Hr 30 mg PO BID Referrals: Aleksandr Noble MD [Primary Care Provider] - Flor Dutta MD [Physician] - Patient/Caregiver Discharge Instructions Meds to Beds: No Discharge Activity: as per physical therapy and activity as tolerated Education Materials: Stroke and Heart Disease, Causes of Syncope, Communicating About Pain, Discharge Instructions for ..., Discharge Instructions for Stroke Print Language: Pakistani Stand Alone Forms: [employer] Award Info., Patient Portal Info Letter Discharge Order Discharge Orders: Discharge (Routine); Ordered 12/05/24 Ordered By: Angelique Hughes Quality Discharge Quality Measures VTE prophylaxis
--- NOTE | 2024-12-05 11:08 | PC.SS ---
Radiation Therapy Technologist informed by TANISHA Flaherty patient is ready for discharge. contacted [facility] to confirm if patient can be received today, [facility] [place]. Patient's sibling Matthew [phone] informed of ETA 1500. TANISHA Flaherty and HAM Feldman also informed of 1500.
--- NOTE | 2024-12-05 14:02 | PC.NURSE ---
Report called and given to [place] nurse Viv GARNER regarding transfer to facility and ETA of 1500.
== END 2024-12-05 15:00 | disposition skilled nursing facility (03) | DRG 65 ==
LOC: SERX 19:43 → SERHOLD 23:17 → S3NX 12-01 00:06
PROVIDERS: Admitting Provider Student in an Organized Health Care Education/Training Program; Emergency Provider Emergency Medicine; PCP Family Medicine; Visit Provider Internal Medicine
DX: I63.541 Cerebral infarction due to unspecified occlusion or stenosis of right cerebellar artery (principal); N17.9 Acute kidney failure, unspecified; E78.5 Hyperlipidemia, unspecified; I48.91 Unspecified atrial fibrillation; I12.9 Hypertensive chronic kidney disease with stage 1 through stage 4 chronic kidney disease, or unspecified chronic kidney disease; N18.32 Chronic kidney disease, stage 3b; M06.9 Rheumatoid arthritis, unspecified; I16.0 Hypertensive urgency; R79.89 Other specified abnormal findings of blood chemistry; R29.6 Repeated falls; E87.6 Hypokalemia; E83.52 Hypercalcemia; F01.50 Vascular dementia, unspecified severity, without behavioral disturbance, psychotic disturbance, mood disturbance, and anxiety; I70.1 Atherosclerosis of renal artery; I95.9 Hypotension, unspecified; K21.9 Gastro-esophageal reflux disease without esophagitis; I25.10 Atherosclerotic heart disease of native coronary artery without angina pectoris; I25.2 Old myocardial infarction; W18.30XA Fall on same level, unspecified, initial encounter; Z79.01 Long term (current) use of anticoagulants; Z79.82 Long term (current) use of aspirin; I69.318 Other symptoms and signs involving cognitive functions following cerebral infarction; R53.1 Weakness; Z91.199 Patient's noncompliance with other medical treatment and regimen due to unspecified reason; Z79.899 Other long term (current) drug therapy; Z91.81 History of falling; Z95.5 Presence of coronary angioplasty implant and graft; Z99.3 Dependence on wheelchair
CPT/HCPCS: 36415; 70450; 70551; 71250; 72125; 73060; 73090; 73100; 73501; 74176; 80053; 80061; 81001; 82010; 82248; 82550; 83605; 83735; 83880; 84100; 84145; 84439; 84443; 84484; 85025; 85610; 85652; 85730; 86140; 87040; 87400; 87811; 93005; 93225; 93306; 95816; 97162; J3475; J3480; J7120; A9270

== ENCOUNTER → 2024-11-30 | Outpatient (CLI) | payer MEDICARE, SELFPAY ==
[2024-11-30 17:48] LABS: Basophils # (Auto) 0.1 Thou/mm3 (0.0-0.2); Basophils % (Auto) 1 % (0-2.5); Eosinophils # (Auto) 0.2 Thou/mm3 (0.0-0.5); Eosinophils % (Auto) 3 % (0-10); Hematocrit 42.7 % (36.0-46.0); Hemoglobin 14.1 g/dL (12.0-16.0); Immature Granulocytes Auto 0.03 Thou/mm3 (0.00-0.00); Lymphocytes # (Auto) 0.5 Thou/mm3 (1.0-4.8); Lymphocytes % (Auto) 7 % (10-50); Mean Corpuscular HGB Conc 33.0 g/dl (31.0-37.0); Mean Corpuscular Hemoglobin 31.0 pg (25.0-35.0); Mean Corpuscular Volume 94 fL (80-100); Monocytes # (Auto) 0.6 Thou/mm3 (0.0-0.8); Monocytes % (Auto) 10 % (0-12); Neutrophils # (Auto) 5.2 Thou/mm3 (1.8-7.7); Neutrophils % (Auto) 79 % (37-80); Nucleated Red Blood Cell # 0.00 Thou/mm3 (0.00-0.00); Nucleated Red Blood Cell % 0 /100 WBC (0); Platelet Count 232 Thou/mm3 (140-440); RDW Standard Deviation 45.6 fL (36.4-46.3); Red Blood Count 4.55 Miln/mm3 (4.00-5.20); White Blood Count 6.5 Thou/mm3 (3.6-11.0)
[2024-11-30 18:09] LABS: Alanine Aminotransferase 13 U/L (10-49); Albumin, Serum 4.2 gm/dL (3.4-4.8); Albumin/Globulin Ratio 1.8 (1.2-2.2); Alkaline Phosphatase 113 U/L (46-116); Anion Gap 11 (7-16); Aspartate Amino Transferase 22 U/L (0-34); BUN/Creatinine Ratio 13 Ratio (12-20); Bilirubin,Total 1.4 mg/dL (0.3-1.2); Blood Urea Nitrogen 20 mg/dL (9-23); Calcium 11.0 mg/dL (8.3-10.6); Calcium (Corrected) 11.0 mg/dL (8.5-10.1); Carbon Dioxide 29.3 mMol/L (20.0-31.0); Chloride 102 mMol/L (98-107); Creatinine (Component) 1.6 mg/dL (0.6-1.3); Globulin 2.3 gm/dL (2.3-3.5); Glucose 111 mg/dL (74-106); Osmolality,Calculated 286 (275-295); Potassium 3.3 mMol/L (3.4-5.1); Sodium 142 mMol/L (136-145); Total Protein 6.5 gm/dL (5.7-8.2); eGFR 32 See Note
[2024-11-30 18:17] LABS: Troponin I 0.102 ng/mL (0.0-0.045)
== END | disposition home or self-care (01) ==
LOC: COPL 16:25
PROVIDERS: PCP Registered Nurse; Referring Provider Registered Nurse; Visit Provider Registered Nurse
DX: R55 Syncope and collapse (principal)
CPT/HCPCS: 36415; 80053; 81001; 84484; 85025

== ENCOUNTER → 2025-02-01 | Outpatient (CLI) | payer MEDICARE, SELFPAY ==
[2025-02-01 14:54] LABS: Basophils # (Auto) 0.0 Thou/mm3 (0.0-0.2); Basophils % (Auto) 1 % (0-2.5); Eosinophils # (Auto) 0.1 Thou/mm3 (0.0-0.5); Eosinophils % (Auto) 2 % (0-10); Hematocrit 37.5 % (36.0-46.0); Hemoglobin 12.9 g/dL (12.0-16.0); Immature Granulocytes Auto 0.02 Thou/mm3 (0.00-0.00); Lymphocytes # (Auto) 0.6 Thou/mm3 (1.0-4.8); Lymphocytes % (Auto) 10 % (10-50); Mean Corpuscular HGB Conc 34.4 g/dl (31.0-37.0); Mean Corpuscular Hemoglobin 32.6 pg (25.0-35.0); Mean Corpuscular Volume 95 fL (80-100); Monocytes # (Auto) 0.7 Thou/mm3 (0.0-0.8); Monocytes % (Auto) 11 % (0-12); Neutrophils # (Auto) 4.6 Thou/mm3 (1.8-7.7); Neutrophils % (Auto) 77 % (37-80); Nucleated Red Blood Cell # 0.00 Thou/mm3 (0.00-0.00); Nucleated Red Blood Cell % 0 /100 WBC (0); Platelet Count 311 Thou/mm3 (140-440); RDW Standard Deviation 49.1 fL (36.4-46.3); Red Blood Count 3.96 Miln/mm3 (4.00-5.20); White Blood Count 6.0 Thou/mm3 (3.6-11.0)
[2025-02-01 15:13] LABS: Sed Rate (ESR) 22 mm/hr (0-30)
[2025-02-01 15:29] LABS: Alanine Aminotransferase 9 U/L (10-49); Albumin, Serum 3.9 gm/dL (3.4-4.8); Albumin/Globulin Ratio 1.5 (1.2-2.2); Alkaline Phosphatase 109 U/L (46-116); Anion Gap 10 (7-16); Aspartate Amino Transferase 16 U/L (0-34); BUN/Creatinine Ratio 12 Ratio (12-20); Bilirubin,Total 1.0 mg/dL (0.3-1.2); Blood Urea Nitrogen 18 mg/dL (9-23); C-Reactive Protein < 0.5 mg/dL (0.0-0.9); Calcium 10.1 mg/dL (8.3-10.6); Calcium (Corrected) 10.2 mg/dL (8.5-10.1); Carbon Dioxide 26.1 mMol/L (20.0-31.0); Chloride 105 mMol/L (98-107); Creatinine (Component) 1.5 mg/dL (0.6-1.3); Globulin 2.6 gm/dL (2.3-3.5); Glucose 105 mg/dL (74-106); Osmolality,Calculated 283 (275-295); Potassium 4.0 mMol/L (3.4-5.1); Sodium 141 mMol/L (136-145); Total Protein 6.5 gm/dL (5.7-8.2); eGFR 34 See Note
== END | disposition home or self-care (01) ==
LOC: COPL 14:02
PROVIDERS: PCP Registered Nurse; Referring Provider Registered Nurse; Visit Provider Registered Nurse
DX: M05.79 Rheumatoid arthritis with rheumatoid factor of multiple sites without organ or systems involvement (principal)
CPT/HCPCS: 36415; 80053; 85025; 85652; 86140

== ENCOUNTER → 2025-02-14 | Outpatient (CLI) | payer MEDICARE, SELFPAY ==
--- NOTE | 2025-02-14 09:35 | XR_ITS ---
EXAMINATION: Ankle, right 3 views . Technique: Ankle AP, oblique, lateral 3 views Date and time of exam: February 14, 2025 0934 hours INDICATIONS: Patient fell last week with injury to the ankle, ankle pain. FINDINGS: Periosteal new bone along the shafts of the distal tibia and fibula Severe osteopenia Bimalleolar soft tissue swelling No acute fracture Soft tissue vascular calcification 4 mm plantar bony calcaneal spur IMPRESSION: No acute fracture
== END | disposition home or self-care (01) ==
LOC: CDIM 09:23
PROVIDERS: PCP Family Medicine; Referring Provider Registered Nurse; Visit Provider Registered Nurse
DX: S99.911A Unspecified injury of right ankle, initial encounter (principal); W19.XXXA Unspecified fall, initial encounter
CPT/HCPCS: 73610

== ENCOUNTER 2025-04-06 12:00 | Observation (INO) | payer MEDICARE, SELFPAY ==
[2025-04-05 12:25] LABS: Basophils # (Auto) 0.0 Thou/mm3 (0.0-0.2); Basophils % (Auto) 1 % (0-2.5); Eosinophils # (Auto) 0.2 Thou/mm3 (0.0-0.5); Eosinophils % (Auto) 3 % (0-10); Hematocrit 36.2 % (36.0-46.0); Hemoglobin 11.7 g/dL (12.0-16.0); Immature Granulocytes Auto 0.02 Thou/mm3 (0.00-0.00); Lymphocytes # (Auto) 0.6 Thou/mm3 (1.0-4.8); Lymphocytes % (Auto) 9 % (10-50); Mean Corpuscular HGB Conc 32.3 g/dl (31.0-37.0); Mean Corpuscular Hemoglobin 31.6 pg (25.0-35.0); Mean Corpuscular Volume 98 fL (80-100); Monocytes # (Auto) 0.6 Thou/mm3 (0.0-0.8); Monocytes % (Auto) 10 % (0-12); Neutrophils # (Auto) 4.7 Thou/mm3 (1.8-7.7); Neutrophils % (Auto) 77 % (37-80); Nucleated Red Blood Cell # 0.00 Thou/mm3 (0.00-0.00); Nucleated Red Blood Cell % 0 /100 WBC (0); Platelet Count 275 Thou/mm3 (140-440); RDW Standard Deviation 54.8 fL (36.4-46.3); Red Blood Count 3.70 Miln/mm3 (4.00-5.20); White Blood Count 6.1 Thou/mm3 (3.6-11.0)
[2025-04-05 12:32] LABS: INR 1.1 (0.9-1.3); Partial Thromboplastin Time 25.0 Seconds (22.0-36.0); Prothrombin Time 11.7 Seconds (9.0-12.2)
[2025-04-05 12:37] LABS: Anion Gap 9 (7-16); BUN/Creatinine Ratio 7 Ratio (12-20); Blood Urea Nitrogen 10 mg/dL (9-23); Calcium 9.8 mg/dL (8.3-10.6); Carbon Dioxide 26.5 mMol/L (20.0-31.0); Chloride 109 mMol/L (98-107); Creatinine (Component) 1.4 mg/dL (0.6-1.3); Glucose 101 mg/dL (74-106); Osmolality,Calculated 285 (275-295); Potassium 4.2 mMol/L (3.4-5.1); Sodium 144 mMol/L (136-145); eGFR 37 See Note
--- NOTE | 2025-04-05 15:15 | EKG_ITS ---
[facility] Test Date: 2025-04-05 Pat Name: WILDER FOX Department: Room: - Gender: Female Dial Painter: JUANITA : 1940 Requested By: Flor Dutta Order Number: [id number] Reading MD: Flor Dutta Measurements Intervals [place] Rate: 91 P: MN: QRS: 5 QRSD: 76 T: 30 QT: 341 QTc: 421 Interpretive Statements ATRIAL FIBRILLATION POSSIBLE ANTERIOR MYOCARDIAL INFARCTION , PROBABLY OLD [30 ms Q WAVE IN V3/V4, OR R < 0.2 mV IN V4] ABNORMAL RHYTHM ECG Compared to ECG 12/01/2024 18:16:58 Myocardial infarct finding now present ST (T wave) deviation no longer present /store/S0/[id number].pdf
[2025-04-06] VITALS (20 sets, daily range): BP systolic 120–194; BP diastolic 61–148; PULSE 85–110; RESP 14–20; TEMP 36.1–36.5; O2SAT 93–100; BMI 30.1; BMI 29.8
[2025-04-06] MEDS: DIAZEPAM 5 MG TABLET PO (07:27)
--- NOTE | 2025-04-06 09:04 | PD.CARDCATH ---
Cardiac Cath Procedure Procedure Narrative Date of the procedure 04/06/2025 Title of the procedure 1.left heart catheterization 2.left coronary angiogram 3.right coronary angiogram 4.left ventriculogram 5.conscious sedation 6.radiographic interpretation supervision 7.ultrasound guidance for right radial access Procedure This was done in the cardiac lab under current electrocardiographic monitoring Intermittent blood pressure monitoring right radial access obtained using modified Seldinger technique and ultrasound guidance 6 [place] sheath was placed TIG 4 catheter was used for selective engagement of the left coronary artery TIG 4 catheter was used for selective images right coronary artery TIG 4 catheter used for left ventriculogram Hemodynamics LV gram not done in order to conserve the dye Coronary anatomy 1.left Main coronary artery appears normal 2.left anterior descending artery appears normal 3.right coronary is a dominant vessel appears normal 4.circumflex does not seem to have any significant lesion 5.obtuse marginal has minor luminal irregularities Conclusion No significant coronary lesion Continue medical management
[2025-04-06] MEDS: SODIUM CHLORIDE 0.9% 1000 ML 1,000 ML 999 ML IV (09:30)
[2025-04-06] MEDS: hydrALAZINE INJ 20 MG/ML VIAL 10 MG IVP (09:55)
--- NOTE | 2025-04-06 13:00 | PC.NURSE ---
Tameka Curtis made the following statement If i take her home shell stay in the car in the garage, i cant get her out of the car . Called and spoke with Wire Brush Maker worker Eliel regarding care givers concern of not being able to take care of patient. Also made Cindy GARAY and medsurg powder operator Simer aware of Tamekas comment. Ever's contact number is .
[2025-04-06] MEDS: METOPROLOL SUCCINATE XL 25 MG TABCR PO ×2 (13:15→20:03)
--- NOTE | 2025-04-06 13:46 | PC.NURSE ---
Patient taken to room 362 via gurney with quality assurance monitor. Clara RN at bedside helping to transfer patient to bed. AAOx3, Vital Signs stable.
[2025-04-06] MEDS: ATORVASTATIN CALCIUM 10 MG TABLET PO (20:03)
[2025-04-07] VITALS: BP 140/89; PULSE 72; RESP 22; TEMP 36.4; O2SAT 93
[2025-04-07 04:00] VITALS: BP 152/100; PULSE 63; RESP 22; TEMP 36.2; O2SAT 93
--- NOTE | 2025-04-07 07:43 | PD.IMPROG ---
Documentation for date of: 04/07/25 Subjective Subjective Interval history: Patient is feeling better today Patient was admitted yesterday for observation following she had an elevated creatinine of 1.4 Patient was given IV fluids currently feeling a lot better passing good urine we will plan to discharge the patient Exam Vital Signs Temp Pulse Resp BP Pulse Ox O2 Del Method 97.2 F 63 22 H 152/100 H 93 L Room Air 04/07/25 04:00 04/07/25 04:00 04/07/25 04:00 04/07/25 04:00 04/07/25 04:00 04/07/25 04:00 Routine HEENT Exam Head: Present normocephalic and atraumatic Eye: Present EOMI and PERRL ENT: Present mucous membranes moist Routine Neck Exam Neck: Present supple and trachea midline Routine Respiratory Exam Respiratory: Present chest non-tender, lungs clear, normal breath sounds and no resp distress Routine Cardiovascular Exam Cardiovascular: Present RRR Routine Abdominal Exam Abdominal: Present soft and normoactive bowel sounds Routine Extremities Exam Extremities: Present full ROM Routine Skin Exam Skin: Present intact, dry and warm Routine Neurological Exam Neurological: Present alert, oriented X3 and CN II-XII intact Routine Psychiatric Exam Psychiatric: Present normal affect and normal thought process Objective Labs 04/05/25 12:06 04/05/25 12:06 Assessment & Plan A&P Narrative No significant coronary artery disease Chronic renal dysfunction We will discharge the patient Time Spent With Patient Time: Total time spent is greater than 50% in coordination of care (as documented) at patient's floor/unit and/or counseling patient:
[2025-04-07 08:00] VITALS: BP 149/101; PULSE 80; PULSE 94; RESP 21; TEMP 36.4; O2SAT 93
--- NOTE | 2025-04-07 08:06 | PC.NURSE ---
Attempted to contact patient grandallyn Curtis about discharge, no answer at this time and no voicemail set up.
[2025-04-07 08:22] VITALS: BP 149/101; PULSE 94
[2025-04-07] MEDS: METOPROLOL SUCCINATE XL 25 MG TABCR PO (08:22)
[2025-04-07] MEDS: PANTOPRAZOLE 40 MG TABLET PO (08:22)
[2025-04-07] MEDS: ASPIRIN EC 81 MG TABEC PO (08:23)
[2025-04-07] MEDS: APIXABAN 2.5 MG TABLET PO (08:23)
--- NOTE | 2025-04-07 08:50 | PC.NURSE ---
Spoke to Ever (grandson) at bedside about discharge for patient.
--- NOTE | 2025-04-07 09:59 | PC.NURSE ---
Called and clarified discharge instructions with Dr. Dutta, he stated it is okay for patient to transfer self after 24 hours. Discharge instructions updated to reflect conversation.
--- NOTE | 2025-04-07 10:38 | PC.SS ---
SS met with patient who is alert/oriented. Patient was able to verify demographics. Patient confirmed she resides with her grandson, Ever. Ever is the main careprovider for patient. Patient states prior baseline is that patient is independent with ADL's. She has a walker, wheelchair and bsc at home. She is able to transfer herself. However, she recently was at paint laboratory technician and her right arm cannot be used for 24 hours. Grandallyn was aware and nervous to take patient home. SS clarified with floor nurse that the 24 hour yamilet is at 11a.m. today. Kaleb was explained in detail from nurse and he is fine and agreeable to take patient home. Initially, there was some concern about the grandsons remarks in paint laboratory technician that patient would stay in car in the garage. SS asked patient if she feels safe with kaleb and she responded, yes. SS asked patient if she feels safe returning home and she responded, yes. Kaleb clarified that he was more nervous about getting her in and out of the home. He did not intentionally mean to do what he verbalized. Kaleb states they are open to [facility] [employer]. SS will coordinate the [facility] transport through [employer]. Patient has her own wheelchair and they have a lift. bonding supervisor time of 10:40a.m. Floor nurse updated on all plans. No further concerns. alt medical decision maker: Ever English,
== END 2025-04-07 10:27 | disposition home or self-care (01) ==
LOC: S3NX 13:35
PROVIDERS: Admitting Provider Internal Medicine; PCP Family Medicine; Referring Provider Internal Medicine; Visit Provider Internal Medicine
PROC: (CPT 93458; principal; 2025-04-06 07:30)
DX: R07.89 Other chest pain (principal); I65.21 Occlusion and stenosis of right carotid artery; I48.20 Chronic atrial fibrillation, unspecified; I12.9 Hypertensive chronic kidney disease with stage 1 through stage 4 chronic kidney disease, or unspecified chronic kidney disease; N18.9 Chronic kidney disease, unspecified; E78.5 Hyperlipidemia, unspecified; Z98.62 Peripheral vascular angioplasty status; Z79.82 Long term (current) use of aspirin; Z79.899 Other long term (current) drug therapy; Z01.810 Encounter for preprocedural cardiovascular examination; R79.89 Other specified abnormal findings of blood chemistry
CPT/HCPCS: 93458; 36415; 80048; 85025; 85610; 85730; 93005; 96374; 97162; 99152; A4649; C1769; C1887; C1894; G0378; J0153; J0168; J0360; J0461; J0583; J1643; J2250; J2312; J2371; J2405; J3010; J3490; J7030; Q9967; A9270; J2305